=== PATIENT | male | born 1935 | race Caucasian/White ===

== ENCOUNTER 2016-02-25 08:20 | Outpatient (CLI) | payer MEDICARE, BC ==
[~2016-02-25] VITALS: Ht 175.3 cm; Wt 71.8 kg
--- NOTE | ~2016-02-25 | HEMODYNAMI ---
PATIENT:LUIS BELLO MEDICAL RECORD: [id number] : 37 LOCATION:D.CAT ADMISSION DATE: 02/25/16 Generatedon:02/25/201610:56 Patient name: LUIS BELLO Patient #: [id number] SSN: : 1935 Date of study: 02/25/2016 Page: Of Hemodynamic Procedure Report Patient Data Patient Demographics Procedure consent was obtained First Name: LUIS Gender: Male Last Name: ACE : 1935 [facility] Initial: JAE Age: 80 year(s) Patient #: [id number] Race: Additional ID: [id number] Contact details [address]: [address] [place] [address] State: [place] City: [place] Zip code: [address] Past Medical History Allergies Allergen Reaction Date Comments Reported Other allergy 02/21/2016 wasp venom Bee/Wasp stings 02/25/2016 Admission Admission Data Admission Date: 02/25/2016 Admission Time: 8:20 Height (in.): 69 BSA: 1.87 (m2) Height (cm.): 175.26 BMI: 23.33 (kg/m2) Weight (lbs.): 158 Weight (kg.): 71.67 Lab Results Lab Result Date: 02/25/2016 Lab Result Time: 0:00 Biochemistry Name Units Result Min Max BUN mg/dl 15 --(--*-)-- 7 18 Creatinine mg/dl 1.4 --(----)*- 0.6 1.3 CBC Name Units Result Min Max Hemoglobin g/dl 15.7 --(--*-)-- 13.5 17.5 Procedure Procedure Types Cath Procedure PCI Procedure Coronary Stent Initial Procedure Description Procedure Date Procedure Date: 02/25/2016 Procedure Start Time: 10:46 Procedure End Time: 10:55 Procedure Staff Name Function Reji Ratliff MD Performing Physician Radha Arnold RT Scrub Marcy Chamorro RN Nurse Aime Dejesus RT Application Tester Garry Suit RT Monitor Procedure Data Cath Procedure Fluoroscopy Diagnostic fluoroscopy Total fluoroscopy Time: 1.6 time: 1.6 min min Diagnostic fluoroscopy Total fluoroscopy dose: 205 dose: 205 mGy mGy Contrast Material Contrast Material Type Amount (ml) Isovue 300 37 Entry Location Entry Primary Successful Side Size Upsize Upsize Entry Closure Aguayo ccessful Closure Location (Fr) 1 (Fr) 2 (Fr) Remarks Device Remarks Radial Right 6 Fr Mechanical artery Short Compression Procedure Complications No complications Procedure Medications Medication Administration Route Dosage Oxygen NC 2 l/min Heparin Flush Bag added to field 2 bags (1000units/500ml NS) Lidocaine 2% added to field 20 Radial Cocktail added to field 1 syringe (Verapomil 2mg/Nitro 400mcg/Heparin 1500units) Benadryl I.V. 50 mg Versed I.V. 1 mg Fentanyl I.V. 50 mcg Versed I.V. 1 mg Fentanyl I.V. 50 mcg Heparin Bolus I.V. 4000 units Radial Cocktail I.A. 1 syringe (Verapomil 2mg/Nitro 400mcg/Heparin 1500units) Hemodynamics Rest BSA: 1.87 (m2) HGB: 15.7 (g/dl) O2 Consumption: Estimated: 223.29 (ml/min) O2 Co nsumption indexed: Estimated:119.41 (ml/min/m) Heart Rate: 83 (bpm) Snapshots Pre Cath Intra NCS Post Cath Vital Signs Time Heart Resp SPO2 NIBP (mmHg) Rhythm Pain Sedation Rate (ipm) (%) Status Level (bpm) 10:30:42 87 22 93 159/91(121) NSR 0 (11) 10(A) , No pain 10:34:56 83 16 95 151/96(133) NSR 0 (11) 10(A) , No pain 10:39:10 84 15 99 140/84(114) NSR 0 (11) 10(A) , No pain 10:43:24 83 16 96 113/71(93) NSR 0 (11) 9(A) , No pain 10:47:28 78 16 98 106/70(82) NSR 0 (11) 9(A) , No pain 10:51:34 91 16 97 86/57(78) NSR 0 (11) 9(A) , No pain 10:53:53 89 16 95 90/47(62) NSR 0 (11) 9(A) , No pain Medications Time Medication Route Dose Verified Delivered Reason Note s Effectiveness by by 10:29:50 Oxygen NC 2 l/min Reji Marcy Per physician Evy Chamorro RN 10:30:02 Heparin Flush added 2 bags Reji Mendoza used for Bag to Evy Ratliff MD procedure (1000units/500ml field NS) 10:30:09 Lidocaine 2% added 20ml Reji Mendoza used for to vial Evy Ratliff MD procedure field 10:31:17 Radial Cocktail added 1 Reji Mendoza used for (Verapomil to syringe Evy Ratliff MD procedure 2mg/Nitro field 400mcg/Heparin 1500units) 10:31:25 Benadryl I.V. 50 mg Reji Marcy Per physician Evy Chamorro RN 10:39:19 Versed I.V. 1 mg Reji Marcy for sedation Evy Chamorro RN 10:39:24 Fentanyl I.V. 50 mcg Reji Marcy for sedation Evy Chamorro RN 10:42:29 Versed I.V. 1 mg Reji Marcy for sedation Evy Chamorro RN 10:42:36 Fentanyl I.V. 50 mcg Reji Marcy for sedation Evy Chamorro RN 10:47:31 Radial Cocktail I.A. 1 Reji Mendoza for (Verapomil syringe Evy Ratliff MD vasodilation 2mg/Nitro 400mcg/Heparin 1500units) 10:48:03 Heparin Bolus I.V. 4000 Reji Marcy for dose units Evy Chamorro RN anticoagulation verified with dr ratliff Procedure Log Time Note 10:17:50 Aime Dejesus RT(R) sent for patient. Start room use. 10:17:51 Time tracking: Regular hours 10:17:56 Plan of Care:Hemodynamics will remain stable., Cardiac rhythm will remain stable., Comfort level will be maintained., Respiratory function will remain adequate., Patient/ family verbilizes understanding of procedure., Procedure tolerated without complication., Recovers from procedure without complications.. 10:23:39 ACC Patient presents with Stable Angina CCS Anginal Class 2--Slight limitation of ordinary activity. 10:24:36 ACC The patient was administered the following blood thiners within the last 24 hours: ACCPlavix 10:24:46 H&P Date Dictated: 02/25/2016 New H&P dictated by physician.. 10:25:18 Patient received from Outpatients to CCL 1 Alert and oriented. Tansferred to table in Supine position. 10:25:19 Warm blankets applied, and good hugger turned on for patient comfort. 10:25:20 Correct patient and procedure confirmed by team. 10:25:21 Signed procedure consent form obtained from patient. 10:25:22 ECG and BP/O2 sat monitors applied to patient. 10:25:23 Full Disclosure recording started 10:29:41 Vital chart was started 10:29:50 Oxygen 2 l/min NC was given by Marcy Chamorro RN; Per physician; 10:30:02 Heparin Flush Bag (1000units/500ml NS) 2 bags added to field was given by Reji Ratliff MD; used for procedure; 10:30:09 Lidocaine 2% 20ml vial added to field was given by Reji Ratliff MD; used for procedure; 10:31:17 Radial Cocktail (Verapomil 2mg/Nitro 400mcg/Heparin 1500units) 1 syringe added to field was given by Reji Ratliff MD; used for procedure; 10:31:25 Benadryl 50 mg I.V. was given by Marcy Chamorro RN; Per physician; 10:36:19 Baseline sample Acquired. 10:36:24 Rhythm: sinus rhythm 10:36:28 Pre-procedure instructions explained to patient. 10:36:28 Pre-op teaching completed and patient verbalized understanding. 10:36:31 Family in waiting room. 10:36:39 Patient NPO since Midnight. 10:36:49 Patient allergic to Bee/Wasp stings 10:36:51 Is the patient allergic to Iodine/contrast media? No. 10:36:56 Is patient on blood thinner?Yes 10:37:02 Patient diabetic? No. 10:37:04 ----Pre-sedation anethsthesia assessment.---- 10:37:07 Previous problem with sedation/anesthesia? No ? 10:37:09 Snore? No 10:37:18 Sleep apnea? No 10:37:20 Deviated septum? No 10:37:22 Opens mouth fully? Yes 10:37:23 Sticks out tongue? Yes 10:37:43 Airway obstruction? No ? 10:37:45 Dentures? No ? 10:37:50 Pre procedure: left dorsailis pedis pulse 1+ Palpable, but thready & weak; easily obliterated 10:37:55 Modified Arcadio's test Ulnar < 7 seconds 10:38:00 Patient pain scale 0/10 ?. 10:38:19 IV patent on arrival in left hand with 0.9% NaCl at 10ml/hr. 10:38:43 Lab Result : BUN 15 mg/dl 10:38:43 Lab Result : Creatinine 1.4 mg/dl 10:38:43 Lab Result : Hemoglobin 15.7 g/dl 10:38:47 Lab results completed and on chart. 10:38:54 Right Radial & Left Groin area was prepped with chlora-prep and draped in sterile fashion 10:38:55 Alarms reviewed by R. N. 10:38:57 Sharps counted by scrub and verified by R.N. 10:38:59 --------ALL STOP TIME OUT------ 10:39:00 Final Timeout: patient, procedure, and site verified with staff and physician. All members of the team are in agreement. 10:39:05 Right Radial & Left Groin site verified by team. 10:39:10 Physical assessment completed. ASA score P 2 - A patient with mild systemic disease as per Reji Ratliff MD. 10:39:14 Sedation plan: IV Moderate Sedation Versed, Fentanyl 10:39:19 Versed 1 mg I.V. was given by Marcy Chamorro RN; for sedation; 10:39:24 Fentanyl 50 mcg I.V. was given by Marcy Chamorro RN; for sedation; 10:40:26 Use device set Radial PCI 10:40:27 Acist Syringe opened to sterile field. 10:40:28 Acist Hand Control opened to sterile field. 10:40:30 Bag Decanter opened to sterile field. 10:40:30 Cardinal Cath Pack opened to sterile field. 10:40:31 Merit BasixCompak Inflation Kit opened to sterile field. 10:40:32 Terumo 6Fr Slender Glidesheath opened to sterile field. 10:40:32 St Devin 260cm Straight .035 wire opened to sterile field. 10:40:33 Acist Manifold opened to sterile field. 10:40:34 Tegaderm 4 x 4 opened to sterile field. 10:40:42 Gautam Whisper J 300cm 0.014 guide wire opened to sterile field. 10:40:53 Cordis 6FR XBLAD 4.0 guide catheter opened to sterile field. 10:42:29 Versed 1 mg I.V. was given by Marcy Chamorro RN; for sedation; 10:42:36 Fentanyl 50 mcg I.V. was given by Marcy Chamorro RN; for sedation; 10:44:07 Zero performed for pressure channel P1 10:44:12 Zero performed for pressure channel P1 10:44:14 Zero performed for pressure channel P1 10:44:16 Zero performed for pressure channel P1 10:46:28 Patient Height : 175.26 cm 10:46:31 Patient Weight : 71.67 kg 10:46:40 Procedure started. 10:46:53 Local anesthetic to right radial artery with Lidocaine 2% by Reji Ratliff MD.INITIAL ACCESS ONLY 10:46:59 A 6 Fr Short sheath was inserted into the Right Radial artery 10:47:31 Radial Cocktail (Verapomil 2mg/Nitro 400mcg/Heparin 1500units) 1 syringe I.A. was given by Reji Ratliff MD; for vasodilation; 10:48:03 Heparin Bolus 4000 units I.V. was given by Marcy Chamorro RN; for anticoagulation; dose verified with dr ratliff 10:50:59 ACC PCI Site: [facility] has 80% stenosis. 10:51:02 ACC Pre-intervention GABRIEL Flow is 3. 10:51:07 6 Fr XBLAD 4 guide catheter was inserted over the wire 10:51:11 WHISPER wire advanced. 10:51:23 Inflation Number: 1 A Medtronic Integrity 3.5 X 22 stent was prepped and advanced across the Mid CX. The stent was deployed at 13 SHEEBA for 0:10 (min:sec). 10:51:27 Stent catheter was removed intact over wire. 10:51:28 Wire removed. 10:51:28 Guide catheter removed. 10:51:39 Contrast amount:Isovue 300 37ml. 10:51:53 Sheath removed intact; hemostasis achieved with Mechanical Compression to the Right Radial artery. 10:51:55 Procedure ended.(Physican Out) 10:52:04 Fluoroscopy time 01.60 minutes. 10:52:08 Flurop Dose total: 205 10:52:08 Fluoroscopy dose: 205 mGy 10:52:10 Sharps counted by scrub and verified by R.N. 10:52:12 TR band inflated with 10cc of air. 10:52:14 Insertion/operative site no bleeding no hematoma. 10:52:20 Post right radial artery:stable 10:52:21 Post Procedure Pulses reassessed and unchanged 10:52:24 Post procedure rhythm: sinus rhythm 10:52:25 Post procedure instruction explained to patient.Patient verbalizes understanding. 10:52:43 Terumo TR Band Standard opened to sterile field. 10:52:57 Procedure and supply charges have been captured, reviewed, submitted and are correct. 10:53:01 Procedure Complication : No complications 10:54:50 Vital chart was stopped 10:54:50 See physician's report for complete and final results. 10:54:55 Report given to Post Procedure Room. 10:54:59 Patient transfered to Post Procedure Room with Stretcher. 10:55:02 Procedure ended. 10:55:02 Full Disclosure recording stopped 10:55:06 End room use (Document Last) Intervention Summary Intervention Notes Time ActionType Lesion and Equipment Action# Pressure Duration Attributes Used 10:51:23 Place stent Mid CX Medtronic 1 13 00:10 Integrity 3.5 X 22 stent Device Usage Item Name Manufacture Quantity Catalog Hospital Part Current Minimal Lot# / Number Charge Number Stock Stock Serial# Code Acist Acist 1 30233 [id number] 443272 414111 20 Syringe Medical Systems Inc Acist Hand Acist 1 37063 000569 476279 363101 5 Control Medical Systems Inc Bag Microtek 1 2001S 324448 72254 922831 5 [email or web address] Inc. Cardinal Cardinal [address] [address]58[address] 38581 935456 5 MedCity News [facility] 1 [id number] 668651 133361 076791 15 Digital Shadows Medical Inflation Kit Terumo 6Fr Terumo 1 [id number] 821078 761260 837363 [address] [facility] 1 550814 044024 115234 256751 1 260cm Straight .035 wire Acist Acist 1 16865 519329 469029 958112 5 Vivaty Systems Inc Tegaderm 4 3M 1 1626W 064119 848397 343103 5 x 4 Gautam Gautam 1 [id number] 972762 655765 891982 5 Whisper J Vascular 300cm 0.014 guide wire Cordis 6FR Cardinal 1 [id number] 213604 890630 558185 3 XBLAD 4.0 Health guide catheter Medtronic Medtronic 1 [id number] 824074 664705 4 [id number] Integrity 3.5 X 22 stent Terumo TR Terumo 1 [id number] 060280 144763 790950 40 Band Standard Signature Audit [place] Stage Time Signature Unsigned Intra-Procedure 02/25/2016 Garry French 10:56:02 AM RT(R) Signatures Monitor : Garry French RT Signature : Date : Time : [facility] [address] [place] [address]
[~2016-02-25 08:20] MED LIST: BAYER CHEWABLE81 MG PO; BYSTOLIC5 MG PO; CRESTOR5 MG PO; ELAVIL25 MG PO; HYZAAR 50-12.51 TAB PO; PLAVIX75 MG; PLAVIX75 MG PO; PROPAFENONE HC150 MG PO; VITAMIN D31000 UNIT PO; ZOLOFT50 MG PO
[2016-02-25 09:00] LABS: BASOPHILS 0.4 % (0.0-2.0); EOSINOPHILS 7.1 % (0-7); HEMATOCRIT 45.9 % (42.0-54.0); HEMOGLOBIN 15.7 g/dL (13.5-17.5); IMMATURE GRANULOCYTES 0.2 % (0-5); LYMPHOCYTES 30.7 % (15-50); MCH 31.5 pg (26.0-34.0); MCHC 34.2 g/dL (31.0-37.0); MCV 92.2 fL (80.0-100.0); MEAN PLATELET VOLUME 9.8 fL (7.4-10.4); MONOCYTES 6.3 % (2-11); NEUTROPHILS 55.3 % (40-80); PLATELET COUNT 266 10x3/uL (130-400); RBC 4.98 10x6/uL (4.20-6.10); RDW 13.3 % (11.5-14.5); WBC 11.4 10x3/uL (4.8-10.8)
[2016-02-25 09:10] LABS: ANION GAP 11.2 mmol/L (8-16); CALCIUM 9.9 mg/dL (8.5-10.1); CARBON DIOXIDE 29.5 mmol/L (21.0-32.0); CREATININE - SERUM 1.4 mg/dL (0.6-1.3); POTASSIUM - SERUM 3.7 mmol/L (3.5-5.1)
[2016-02-25 09:19] VITALS: Ht 175.3 cm; Wt 71.8 kg
--- NOTE | 2016-02-25 11:39 | NUR ---
1115 LYING FLAT, SLEEPING. NC 2L IN PLACE WHILE SLEEPING, NO RESP DISTRESS. NSR W FREQUENT PVC'S. ALL VITALS WNL. R WRIST TR BAND C/D/I WITH NO HEMATOMA OR BLEEDING. AT BEDSIDE. NO C/O CHEST PAIN AT THIS TIME. WILL CONTINUE TO MONITOR CLOSELY.
--- NOTE | 2016-02-25 13:32 | NUR ---
1145 CONTINUES TO SLEEP BUT AWAKENS TO VERBAL STIMULI. ALL VITALS WNL. R WRIST TR BAND C/D/I WITH NO HEMATOMA OR BLEEDING. AT BEDSIDE. 1245 TALKING WITH . HOB ELEAVTED TO 45DEGREES. VITALS ALL WNL. R WRIST TR BAND C/D/I WITH NO HEMATOMA OR BLEEDING. 1330 SITTING UP EATING TURKEY SANDWICH WITH ASSIST FROM . NSR W PVC'S RATE 76. R WRIST REMAINS C/D/I WITH NO HEMATOMA OR BLEEDING.
--- NOTE | 2016-02-25 14:52 | NUR ---
PIV REMOVED FROM LEFT HAND WITH BANDAID APPLIED. UP TO BEDSIDE TO DRESS WITH ASSIST FROM .
--- NOTE | 2016-02-25 14:58 | NUR ---
D/C INSTRUCTIONS DISCUSSED WITH PATIENT AND SPOUSE. BOTH VERBALIZED UNDERSTANDING. TR BAND REMOVED AND TEGADERM APPLIED. WHEELED DOWN VIA WHEELCHAIR BY CATH TEAM.
--- NOTE | 2016-02-27 16:23 | OP ---
PATIENT NAME: LUIS BELLO MEDICAL RECORD: [id number] :37 LOCATION:D.CAT ADMISSION DATE: SURGEON: GA LOREDO MD DATE OF OPERATION: 02/25/2016 PROCEDURES: 1. PTCA, stent left circumflex. 2. Selective coronary angiography. PROCEDURE IN DETAIL: After informed consent was obtained and after detailed explanation of risks, benefits, as well as alternative therapies, the patient elected to proceed with angiogram and angioplasty. The right radial area was prepped and draped in normal sterile fashion. The right radial artery was cannulated via modified Seldinger technique with placement of 6-Citizen Of [place] sheath. All catheters exchanged through this sheath. FINDINGS: The left circumflex has 80% stenosis in the mid vessel. This was addressed with a 3.5 x 22 mm Integrity. Result was 0% residual stenosis. OVERALL IMPRESSION: Successful percutaneous transluminal coronary angioplasty stent of the left circumflex going from 80% initial stenosis to 0% residual. TRANSINT:[id number] Voice Confirmation ID: [id number] DOCUMENT ID: [id number] GA LOREDO MD at 1623 CC: [id number] DICTATION DATE: 02/25/16 1054 IMAGING CENTER MANAGER: 02/25/16 1102 DEP CLI 02/25/16 [id number] [place] [address]
--- NOTE | 2016-02-27 16:23 | HP ---
PATIENT: LUIS BELLO MEDICAL RECORD: [id number] ACCOUNT: [id number] LOCATION:[place] : 37 ADMISSION DATE: 02/25/16 HISTORY AND PHYSICAL EXAMINATION ADMITTING DIAGNOSES: 1. Angina. 2. Coronary artery disease. 3. Recent percutaneous transluminal coronary angioplasty stent of the right coronary artery with concomitant disease of the left circumflex. 4. Hypertension. 5. Chronic obstructive pulmonary disease. 6. Smoking history. 7. Hyperlipidemia. 8. Paroxysmal atrial fibrillation. HISTORY OF PRESENT ILLNESS: Mr. Bello presents with anginal symptomatology, found to have 2-vessel coronary artery disease, underwent successful PTCA stent of the RCA. He is now brought back for PTCA stent of the left circumflex. PHYSICAL EXAMINATION: GENERAL APPEARANCE: Well-nourished, well-developed, appears stated age. Level of distress, comfortable. PSYCHIATRIC: Mental status, alert, normal affect. Orientation, oriented to time, place and person. EYES: Lids and conjunctiva, noninjected. No discharge, no pallor. ENT: Lips, teeth, gums, normal dentition. Oropharynx, no cyanosis, no pallor. NECK: Carotid arteries, bilateral normal upstroke, no bruits, no thrills. JUGULAR VEINS: No jugular venous pressure or distention. CERVICAL LYMPH NODES: Nontender, nonenlarged. THYROID: Not enlarged. Nontender. No nodules. LUNGS: Respiratory effort, unlabored. CHEST: Normal curvature. No thoracic deformity. No chest wall tenderness. Percussion, resonant. Auscultation, clear. No wheezes, no rales, no rhonchi. CARDIOVASCULAR: Precordial exam, nondisplaced. No heaves or pericardial thrills. ____. Heart sounds, normal S1, normal S2. No S3, no gallop, no rub. Systolic murmur, not heard. Diastolic murmur, not heard. EXTREMITIES: No cyanosis, no edema. Peripheral pulses, full and equal in all extremities, except as noted. No bruits appreciated. ABDOMEN: Soft, nondistended. Normal aorta. No bruit. Nontender. No masses. Liver, nontender, no hepatomegaly. Spleen, nontender, no splenomegaly. MUSCULOSKELETAL: No joint tenderness. No joint swelling. No erythema. NEUROLOGICAL: Normal gait, normal strength, normal tone. SKIN: Warm and dry. REVIEW OF SYSTEMS: The patient reports easy bruising but reports no swollen glands. The patient reports no fever, no night sweats, no significant weight gain, no significant weight loss. No significant exercise tolerance. The patient reports no dry eyes, no irritation, no vision change. Patient reports no difficulty hearing and no ear pain. Patient reports no frequent nose bleeds or nose and sinus problems. Patient reports on arm pain on exertion. No shortness of breath while lying down. No history of heart murmur. Patient reports no cough, no wheezing or coughing up blood. Patient reports no abdominal pain, no vomiting. Normal appetite. No diarrhea and not vomiting blood. No nausea and no constipation. Patient reports no incontinence. No HISTORY AND PHYSICAL [id number] LUIS BELLO difficulty urinating. No hematuria. No increased frequency. Patient reports no muscle aches. No weakness, no arthralgias, no back pain. No swelling of the extremities. Patient reports no abnormal mole, no jaundice, no rashes. Reports no loss of consciousness. No weakness and no numbness. No seizures, dizziness, or headaches. The patient reports no depression, no sleep disturbance, feeling safe in a relationship and no alcohol abuse. Patient reports on fatigue. Reports no runny nose or sinus pressure. No itching, no hives, and no frequent sneezing. OVERALL IMPRESSION: Anginal symptomatology with significant disease of the circumflex. We will proceed with percutaneous transluminal coronary angioplasty stent of circumflex in a staged fashion. TRANSINT:[id number] Voice Confirmation ID: [id number] DOCUMENT ID: [id number] GA LOREDO MD at 1623 CC: [id number] DICTATION DATE: 02/25/16 0856 DOCTOR OF DENTAL MEDICINE: 02/25/16 0907 DEP CLI 02/25/16 [facility] [address] [place] [address]
== END 2016-02-25 15:00 | disposition home or self-care (01) ==
LOC: D.CATH 08:20
PROVIDERS: Internal Medicine Interventional Cardiology
DX: I25.119 Atherosclerotic heart disease of native coronary artery with unspecified angina pectoris (principal); Z95.5 Presence of coronary angioplasty implant and graft; I10 Essential (primary) hypertension; J44.9 Chronic obstructive pulmonary disease, unspecified; F17.200 Nicotine dependence, unspecified, uncomplicated; E78.5 Hyperlipidemia, unspecified; I48.0 Paroxysmal atrial fibrillation

== ENCOUNTER 2016-03-23 16:54 | Inpatient (IN) | payer MEDICARE, BC ==
[~2016-03-23] VITALS: Ht 175.3 cm
[2016-03-23 17:29] LABS: APPEARANCE CLEAR (CLEAR); BILIRUBIN NEGATIVE (NEGATIVE); COLOR YELLOW (YELLOW); GLUCOSE NEGATIVE (NEGATIVE); KETONE NEGATIVE (NEGATIVE); LEUKOCYTE ESTERASE NEGATIVE (NEGATIVE); NITRITE NEGATIVE (NEGATIVE); PROTEIN NEGATIVE (NEGATIVE); UROBILINOGEN NORMAL (NORMAL)
[2016-03-23 17:41] LABS: BASOPHILS 0.1 % (0.0-2.0); EOSINOPHILS 0.1 % (0-7); HEMATOCRIT 40.8 % (42.0-54.0); HEMOGLOBIN 13.9 g/dL (13.5-17.5); IMMATURE GRANULOCYTES 0.4 % (0-5); LYMPHOCYTES 18.4 % (15-50); MCH 31.2 pg (26.0-34.0); MCHC 34.1 g/dL (31.0-37.0); MCV 91.5 fL (80.0-100.0); MONOCYTES 3.5 % (2-11); NEUTROPHILS 77.5 % (40-80); PLATELET COUNT 248 10x3/uL (130-400); RBC 4.46 10x6/uL (4.20-6.10); RDW 12.7 % (11.5-14.5)
[2016-03-23 18:15] LABS: ALBUMIN 3.9 g/dL (3.4-5.0); ANION GAP 13.5 mmol/L (8-16); BILIRUBIN - TOTAL 0.39 mg/dL (0.2-1.3); CALCIUM 9.3 mg/dL (8.5-10.1); CARBON DIOXIDE 29.2 mmol/L (21.0-32.0); CREATININE - SERUM 1.2 mg/dL (0.6-1.3); POTASSIUM - SERUM 3.7 mmol/L (3.5-5.1); PROTEIN - SERUM 6.9 g/dL (6.4-8.2)
[2016-03-24 02:48] VITALS: BP 153/79
--- NOTE | 2016-03-24 06:55 | NUR ---
PATIENT STABLE THROUGH THE NIGHT. PO PAIN MEDICATION FOR MAINTAINING COMFORT. 20G PIV REMOVED FROM RIGHT HAND WITH CATH INTACT AFTER LEAKAGE NOTED. 22G PIV INITIATED IN LEFT HAND. CPM STARTED AT 5am. SHE IS A MODERATE FALLS RISK WITH NO ATTEMPTS TO GET OOB. A&Ox3, vss, afebrile, tolerating CPM. BED IN LOWEST LOCKED POSITION, CALL LIGHT WITHIN REACH, HOB ELEVATED, ICE APPLIED TO RIGHT KNEE.
--- NOTE | 2016-03-24 07:00 | NUR ---
PATIENT RECIEVED FROM ER, STABLE WITH NO ACUTE DISTRESS. WAS NOT ABLE TO AMBULATE FROM DOORWAY TO THE BED. UNSTABLE GAIT AND WEAKNESS, PATIENT REPORTED THAT HE FEELS LIKE HE IS DRUNK WHEN HE AMBULATES. HE IS A&Ox3, NO COMPLAINTS OF PAIN OR NAUSEA.
--- NOTE | 2016-03-24 08:30 | NUR ---
LYING IN BED,WITHOUT DISTRESS.CALL LIGHT IN REACH
[2016-03-24 08:39] VITALS: BP 141/71
[2016-03-24 10:49] LABS: BASOPHILS 0.2 % (0.0-2.0); EOSINOPHILS 1.5 % (0-7); HEMATOCRIT 40.7 % (42.0-54.0); HEMOGLOBIN 13.7 g/dL (13.5-17.5); IMMATURE GRANULOCYTES 0.3 % (0-5); LYMPHOCYTES 29.5 % (15-50); MCH 30.6 pg (26.0-34.0); MCHC 33.7 g/dL (31.0-37.0); MCV 90.8 fL (80.0-100.0); MEAN PLATELET VOLUME 9.9 fL (7.4-10.4); MONOCYTES 7.4 % (2-11); NEUTROPHILS 61.1 % (40-80); PLATELET COUNT 224 10x3/uL (130-400); RBC 4.48 10x6/uL (4.20-6.10); RDW 12.9 % (11.5-14.5)
[2016-03-24 11:00] LABS: ALBUMIN 3.5 g/dL (3.4-5.0); ALKALINE PHOSPHATASE 68 U/L (46-116); ALT (SGPT) 29 U/L (10-68); CALC OSMOLALITY 269 mosm/kg (275-300); CALCIUM 8.9 mg/dL (8.5-10.1); CARBON DIOXIDE 29.7 mmol/L (21.0-32.0); CHLORIDE - SERUM 97 mmol/L (98-107); CHOL - HDL RATIO 2.3 ratio (2.3-4.9); CHOLESTEROL, TOTAL 148 mg/dL (0-200); CKMB 4.1 U/L (0.0-3.6); CREATINE KINASE 165 UL (21-232); CREATININE - SERUM 1.2 mg/dL (0.6-1.3); GLUCOSE 113 mg/dL (74-106); HDL CHOLESTEROL 65 mg/dL (32-96); LDL CHOLESTEROL 63 mg/dL (0-100); POTASSIUM - SERUM 3.6 mmol/L (3.5-5.1); PROTEIN - SERUM 6.5 g/dL (6.4-8.2); SODIUM 134 mmol/L (136-145); TRIGLYCERIDE 103 mg/dL (30-200); TROPONIN-I < 0.017 ng/mL (0.000-0.060); UREA NITROGEN 14 mg/dL (7-18); eGFR NON AFRICAN AMERICAN 62 mL/min (90-120)
[2016-03-24 11:08] LABS: WBC 9.3 10x3/uL (4.8-10.8)
[2016-03-24 12:26] VITALS: BP 155/76
--- NOTE | 2016-03-24 12:34 | NUR ---
AWAKE AND ALERT. ORIENTED X3. NO C/O AT THIS TIME. FAMILY AT BEDSIDE. ASSISTED TO SIT UP IN BED TO EAT. DENIES NEEDS.
[2016-03-24 12:58] VITALS: Ht 175.3 cm
--- NOTE | 2016-03-24 14:23 | NUR ---
Patient Name: LUIS BELLO Admission Status: ER Accout number: [id number] Admission Date: 03-23-2016 : 1935 Admission Diagnosis: Attending: CHRISTAL Current LOS: 1 Anticipated DC Date: 03-27-2016 Planned Disposition: Home Primary Insurance: MEDICARE A & B Discharge Planning Comments: CM MET WITH PATIENT REGARDING DISCHARGE NEEDS AND PLANS. PATIENT STATED HE LIVES WITH HIS SPOUSE ( JEN) AND SHE OR THEIR SON (DAR) WILL DRIVE PATIENT HOME AT DISCHARGE. PATIENT STATED HE IS INDEPENDENT WITH HIS CARE AND HAS NO DME AT HOME. PATIENT STATED HE HAS 2 STEPS (SEVERAL IN HOME- MULTI LEVEL) WITHOUT RAILS. PATIENTS PCP IS DR. GREY AND PATIENT USES [facility]. PATIENT STATED HE DOES NOT WANT HOME HEALTH UNLESS DOCTOR THINKS HE NEEDS IT. CM WILL CONTINUE TO FOLLOW PATIENT WITH D/C NEEDS AND PLANS. PCP DR. GREY [facility]- [phone] JEN () [phone] DAR (SON) [phone] Morning Nanny: Jackie Archuleta Is the patient Alert and Oriented? Yes 0 * How many steps to enter\exit or inside your home? 2 W/RAILS 0 * PCP DR. GREY 0 * Pharmacy [facility] 0 * Preadmission Environment Home with Family 0 * ADLs Independent 0 * Equipment None 0 * List name and contact numbers for known caregivers / representatives who currently or will assist patient after discharge: JEN (SPOUSE) [phone] DAR (SON) [phone] 0 * Community resources currently utilized None 0 * Additional services required to return to the preadmission environment? Yes 0 * Can the patient safely return to the preadmission environment? Yes 0 * Has this patient been hospitalized within the prior 30 days at any hospital? No 0 Grand Total: 0
[2016-03-24 16:13] LABS: CKMB 3.5 U/L (0.0-3.6); CREATINE KINASE 165 UL (21-232); TROPONIN-I 0.021 ng/mL (0.000-0.060)
[2016-03-24 16:58] VITALS: BP 154/79
--- NOTE | 2016-03-24 18:30 | NUR ---
PT HAS RESTED TODAY AWAKE AND ALERT ORINETED X 3 LUNGS CLEAR BILATERAL FAMILY AT SIDE TO HAVE MRI BRAIN IN AM WILL MNITOR HAS BEEN STABLE THIS DAY AMBULATED IN ROOM WITH THERAPY WITH MINIMAL DIZZINESS NOTED
[2016-03-24 19:00] VITALS: BP 159/82
--- NOTE | 2016-03-24 19:45 | NUR ---
RECIEVED SHIFT REPORT. PT IS LYING IN BED. ALERT AND ORIENTED AND ABLE TO VERBALIZE NEEDS. IV IS PATENT AND SALINE LOC AT THIS TIME. PT HAS BEEN AMBULATING WITH PHYSICAL THERAPY BUT IS ABLE TO TURN SELF IN BED FOR COMFORT AND SKIN CARE. PT DENIES ANY PAIN AT THIS TIME. NO NEEDS ARE VERBALIZED AT THIS TIME. IS AT BEDSIDE. WILL CONTINUE TO MONITOR. SIDE RAILS ARE UP X 2. BED IS IN LOWEST POSITION. CALL LIGHT IS WITHIN REACH.
[2016-03-24 21:33] LABS: CKMB 2.2 U/L (0.0-3.6); CREATINE KINASE 162 UL (21-232); TROPONIN-I 0.024 ng/mL (0.000-0.060)
--- NOTE | 2016-03-24 22:18 | NUR ---
SHIFT ASSESSMENT COMPLETED. NIGHT MEDS GIVEN WITH NO PROBLEMS. NO NEEDS ARE VOICED. WILL MONITOR. AT BEDSIDE. SIDE RAILS X 2. BED LOW. CALL LIGHT IN REACH.
[2016-03-25 04:00] VITALS: BP 120/75
[2016-03-25 05:24] LABS: BASOPHILS 0.2 % (0.0-2.0); EOSINOPHILS 4.3 % (0-7); HEMATOCRIT 40.6 % (42.0-54.0); HEMOGLOBIN 13.6 g/dL (13.5-17.5); IMMATURE GRANULOCYTES 0.3 % (0-5); LYMPHOCYTES 39.8 % (15-50); MCH 30.6 pg (26.0-34.0); MCHC 33.5 g/dL (31.0-37.0); MCV 91.2 fL (80.0-100.0); MEAN PLATELET VOLUME 9.5 fL (7.4-10.4); MONOCYTES 9.6 % (2-11); NEUTROPHILS 45.8 % (40-80); PLATELET COUNT 218 10x3/uL (130-400); RBC 4.45 10x6/uL (4.20-6.10); RDW 12.9 % (11.5-14.5); WBC 10.1 10x3/uL (4.8-10.8)
[2016-03-25 05:49] LABS: ALBUMIN 3.4 g/dL (3.4-5.0); ANION GAP 10.4 mmol/L (8-16); BILIRUBIN - TOTAL 0.34 mg/dL (0.2-1.3); CALCIUM 9.1 mg/dL (8.5-10.1); CREATININE - SERUM 1.2 mg/dL (0.6-1.3); POTASSIUM - SERUM 3.4 mmol/L (3.5-5.1); PROTEIN - SERUM 6.7 g/dL (6.4-8.2)
--- NOTE | 2016-03-25 07:15 | NUR ---
REPORT RECEIVED FROM PARCEL POST OFFICER NURSE. CALL LIGHT IN REACH.
[2016-03-25 07:57] VITALS: BP 148/93
--- NOTE | 2016-03-25 09:43 | NUR ---
ASSESSMENT COMPLETED. AM MEDS ADMINISTERED. NEURO CHECK WNL. SCDs APPLIED TO BLE. BOX ALARM PLACED ON PATIENT. FAMILY IN ROOM. CALL LIGHT IN REACH. WILL CONTINUE WITH PLAN OF CARE.
--- NOTE | 2016-03-25 10:30 | NUR ---
BATH GIVEN PER STATOR PLATE WASHER. TELEMETRY PLACED BACK ON.
[2016-03-25 11:57] VITALS: BP 129/79
--- NOTE | 2016-03-25 12:50 | NUR ---
NEURO CHECK WNL. NO NEEDS VOICED. AT BEDSIDE. CALL LIGHT IN REACH.
--- NOTE | 2016-03-25 14:05 | NUR ---
NO NEEDS VOICED AT THIS TIME. CALL LIGHT IN REACH.
[2016-03-25 16:23] VITALS: BP 145/82
--- NOTE | 2016-03-25 16:50 | NUR ---
TO CT VIA WC.
--- NOTE | 2016-03-25 16:50 | NUR ---
Rehab Note- Rehab Prescreen Order received. The patient will be a good IRF patient, have met and spoken with the patient and family and the patient is interested in [facility] IRF when ready for discharge from acute hospital. Spoke with EMPERATRIZ Mejia. Will follow the patient at this time- continuing to have work up due to feeling of "dizzy headed". Thank you for this referral! Hellen Hassan RN Clinical Liaison, [facility]hab [facility]
--- NOTE | 2016-03-25 17:07 | NUR ---
OT NOTE: PT COMPLETED BUE AROM IN ALL PLANES. PT COMPLETED BED MOB WITH SBA. THANK YOU, JOSE J MCCURDY/Tank
--- NOTE | 2016-03-25 17:10 | NUR ---
BACK IN ROOM.
--- NOTE | 2016-03-25 18:01 | NUR ---
NO CHANGES IN INITIAL ASSESSMENT. SCDs TO BLE. CALL LIGHT IN REACH. WILL CONTINUE WITH PLAN OF CARE.
--- NOTE | 2016-03-25 18:24 | NUR ---
pt seen for transportation program director. no complaints at present except when walking then states his head "swims". flagman are equal and strong bilat with no neuro deficits noted. scds on bilat and at bedside. call light in reach
--- NOTE | 2016-03-25 18:29 | NUR ---
ELAVIL GIVEN D/T PATIENT'S REQUEST.
--- NOTE | 2016-03-25 20:40 | NUR ---
AWAKE,ALERT. NO COMPLAINTS VOICED. SL TO LEFT ARM INTACT WITHOUT REDNESS OR EDEMA NOTED. SCDS IN TACT. NO COMPLAITNS VOICES. AT BEDSIDE.
[2016-03-25 21:00] VITALS: BP 138/77
--- NOTE | 2016-03-26 02:13 | NUR ---
EYES CLOSED RESP EVEN AND UNALBORED. CL IN REACH. REMAINS AT BEDSIDE.
[2016-03-26 04:00] VITALS: BP 135/84
--- NOTE | 2016-03-26 04:00 | NUR ---
PATIENT SLEEPING WITH NO DISTRESS NOTED. IV TO LEFT AC SL WITH NO REDNESS OR SWELLING. TELEMETRY ON. SCD'S ON. BOX ALARM ON. AT BEDSIDE. SRX2. BED LOW. CALL LIGHT WITHIN REACH.
[2016-03-26 05:00] LABS: BASOPHILS 0.3 % (0.0-2.0); EOSINOPHILS 5.1 % (0-7); HEMATOCRIT 42.5 % (42.0-54.0); HEMOGLOBIN 14.2 g/dL (13.5-17.5); IMMATURE GRANULOCYTES 0.4 % (0-5); MCHC 33.4 g/dL (31.0-37.0); MCV 92.8 fL (80.0-100.0); MEAN PLATELET VOLUME 9.9 fL (7.4-10.4); MONOCYTES 9.6 % (2-11); NEUTROPHILS 41.6 % (40-80); PLATELET COUNT 228 10x3/uL (130-400); RBC 4.58 10x6/uL (4.20-6.10); RDW 12.9 % (11.5-14.5); WBC 10.5 10x3/uL (4.8-10.8)
[2016-03-26 05:36] LABS: ALBUMIN 3.4 g/dL (3.4-5.0); ANION GAP 10.4 mmol/L (8-16); BILIRUBIN - TOTAL 0.42 mg/dL (0.2-1.3); CALCIUM 9.4 mg/dL (8.5-10.1); CARBON DIOXIDE 32.1 mmol/L (21.0-32.0); CREATININE - SERUM 1.2 mg/dL (0.6-1.3); POTASSIUM - SERUM 4.5 mmol/L (3.5-5.1); PROTEIN - SERUM 6.5 g/dL (6.4-8.2)
--- NOTE | 2016-03-26 06:47 | NUR ---
NO CHANGE IN ASSESSMENT. CL IN REACH.
--- NOTE | 2016-03-26 07:00 | NUR ---
REPORT RECEIVED FROM BLEACHING SUPERVISOR NURSE. CALL LIGHT IN REACH.
--- NOTE | 2016-03-26 08:01 | NUR ---
ASSESSMENT COMPLETED. NEURO CHECK WNL. NO DEFICITS NOTED. SCDs TO BLE. IN ROOM. CALL LIGHT IN REACH. WILL CONTINUE WITH PLAN OF CARE.
[2016-03-26 08:08] VITALS: BP 125/68
--- NOTE | 2016-03-26 09:56 | NUR ---
AM MEDS ADMINISTERED. AT BEDSIDE. CALL LIGHT IN REACH.
--- NOTE | 2016-03-26 11:11 | NUR ---
NUTRITION MONITORING & EVAL SPEECH THERAPY NOTE REVIEWED. PT CURRENTLY ON AHA DIET WITH 100% INTAKE BREAKFAST. WILL CONTINUE TO PROVIDE DIET, MONITOR PO INTAKE. RD FOLLOWING
[2016-03-26 11:18] VITALS: BP 114/71
--- NOTE | 2016-03-26 11:50 | NUR ---
NO NEEDS VOICED AT THIS TIME. CALL LIGHT IN REACH.
--- NOTE | 2016-03-26 13:50 | NUR ---
WAITING ON CARDIOLOGY TO COME AND SEE PATIENT. DR. LOREDO'S OFFICE WAS NOTIFIED AGAIN PER DAVY.
--- NOTE | 2016-03-26 14:10 | NUR ---
DR. DUFFY HERE TO SEE PATIENT
[2016-03-26 15:15] VITALS: BP 134/55
--- NOTE | 2016-03-26 16:40 | NUR ---
REQUESTING THAT ELAVIL BE GIVEN DIRECTLY AFTER SUPPER BECAUSE THAT IS WHEN HE TAKES IT AT HOME. WILL TAKE IT TO PATIENT WITH DEBORAH.
--- NOTE | 2016-03-26 16:41 | NUR ---
OT NOTE: PT COMPLETED BUE STRENGTHENING EXERCISES FOR INCREASED ACTIVITY TOLERANCE. PT COMPLETED EOB DYNAMIC SITTING BALANCE WITH SBA. THANK YOU, JOSE J MCCURDY/Tank
--- NOTE | 2016-03-26 17:28 | NUR ---
DEBORAH AND ALEA PO. CALL LIGHT IN REACH.
--- NOTE | 2016-03-26 17:48 | NUR ---
PATIENT IN BED EATING DINNER. HOB 90 DEGREES. FAMILY MEMBER IN RECLINER. PATIENT DENIES NEEDS.
--- NOTE | 2016-03-26 18:51 | NUR ---
NO CHANGES IN INITIAL ASSESSMENT. SCDs TO BLE. HOLLY MAT ALARM ON. CALL LIGHT IN REACH. WILL CONTINUE WITH PLAN OF CARE.
[2016-03-26 20:00] VITALS: BP 143/73
[2016-03-27] VITALS: BP 123/78
[2016-03-27 04:00] VITALS: BP 140/54
--- NOTE | 2016-03-27 04:30 | NUR ---
PATIENT SLEEPING WITH NO DISTRESS NOTED. AGREE WITH IRONER OR PRESSER ASSESSMENT.
[2016-03-27 05:48] LABS: BASOPHILS 0.4 % (0.0-2.0); EOSINOPHILS 5.8 % (0-7); HEMATOCRIT 40.8 % (42.0-54.0); HEMOGLOBIN 13.6 g/dL (13.5-17.5); IMMATURE GRANULOCYTES 0.2 % (0-5); LYMPHOCYTES 42.8 % (15-50); MCH 30.8 pg (26.0-34.0); MCHC 33.3 g/dL (31.0-37.0); MCV 92.5 fL (80.0-100.0); MEAN PLATELET VOLUME 9.8 fL (7.4-10.4); MONOCYTES 9.2 % (2-11); NEUTROPHILS 41.6 % (40-80); PLATELET COUNT 217 10x3/uL (130-400); RBC 4.41 10x6/uL (4.20-6.10); RDW 12.8 % (11.5-14.5); WBC 9.8 10x3/uL (4.8-10.8)
[2016-03-27 06:08] LABS: ALBUMIN 3.4 g/dL (3.4-5.0); ANION GAP 10.5 mmol/L (8-16); BILIRUBIN - TOTAL 0.44 mg/dL (0.2-1.3); CARBON DIOXIDE 31.9 mmol/L (21.0-32.0); CREATININE - SERUM 1.2 mg/dL (0.6-1.3); POTASSIUM - SERUM 4.4 mmol/L (3.5-5.1); PROTEIN - SERUM 6.2 g/dL (6.4-8.2)
--- NOTE | 2016-03-27 07:00 | NUR ---
REPORT RECEIVED FROM PAVER INSTALLER NURSE. CALL LIGHT IN REACH.
[2016-03-27 07:55] VITALS: BP 162/74
--- NOTE | 2016-03-27 09:08 | NUR ---
AMBULATING WITH PHYSICAL THERAPY.
--- NOTE | 2016-03-27 09:20 | NUR ---
ASSESSMENT COMPLETED. SCDs TO BLE. HOLLY MAT ON. CALL LIGHT IN REACH. WILL CONTINUE WITH PLAN OF CARE.
--- NOTE | 2016-03-27 11:12 | EC ---
PATIENT:LUIS BELLO DATE OF SERVICE: 03/23/16 SEX: M MEDICAL RECORD: [id number] DATE OF : 37 LOCATION:D.MS [address] AGE OF PATIENT: 80 ADMISSION DATE: 03/23/16 REFERRING PHYSICIAN: INTERPRETING PHYSICIAN: GA RATLIFF MD ECHOCARDIOGRAM REPORT ECHO CHARGES 4 ECHO COMPLETE CLINICAL DIAGNOSIS: STROKE HX HTN/CAD/STENTS ECHOCARDIOGRAPHIC MEASUREMENTS (adult normal given) AC root (d.<3.7cm) 3.6 LV Septum d (<1.2 cm> 1.3 Valve Excursion 1.8 LV Septum (systole) 1.6 Left Atria (s.<4.0cm> 3.9 LVPW d(<1.2cm) 1.5 RV (d.<2.3cm) 4.4 LVPW (sytole) 1.8 LV diastole(<5.6CM) 5.1 MV E-F(>70mm/sec) LV systole 3.8 LVOT Diameter 1.7 MV exc.(>10mm) 1.7 Est.ejection fraction (50-75%) Pericardial Effusion N DOPPLER: LVIT A 143 E 78.0 LA RVSP 25 LVOT 102 AOP1/2T 384 Asc. Ao 245 RVOT 111 RA PA 121 AV Gradient Peak 23.98 AV Mean 14.64 AV Area 1.0 MV Gradient Peak 11.11 MV Mean 3.0 MV Area COMMENTS: Cement Worker: Neil MCGRAW Radio Tower Technician:Alvarado Ratliff TAPE# PACS DATE OF SERVICE: 03/24/2016 Echocardiogram FINDINGS: 1. Left ventricular chamber size is within normal limits. Left ventricular systolic function is normal. Overall ejection fraction estimated at 50%. 2. Left atrium is within normal limits at 3.9 cm. Right atrium and right ventricular chamber sizes are mildly dilated. 3. Valvular structures have normal structure and motion. ECHOCARDIOGRAM REPORT [id number] LUIS BELLO 4. Doppler interrogation reveals mild aortic stenosis. Valve area calculates to 1.0 cm-squared. There is a gradient of 23 mm across the valve. The remaining valvular structures have normal structure and motion. 5. Doppler interrogation elsewise reveals mild aortic insufficiency, mild mitral regurgitation, mild tricuspid regurgitation, no other valvular insufficiency or stenosis. Pulmonary systolic pressure is normal estimated at 25 mmHg. 6. No evidence of pericardial effusion or left ventricular thrombus. TRANSINT:[id number] Voice Confirmation ID: [id number] DOCUMENT ID: [id number] GA RATLIFF MD at 1112 CC: [id number] DICTATION DATE: 03/24/16 1313 ADULT SCHOOL TEACHER: 03/24/16 2227 ADM IN [facility] [address] [id number]
[2016-03-27 11:29] VITALS: BP 140/63
--- NOTE | 2016-03-27 11:55 | NUR ---
SITTING IN ROOM WITH AND FAMILY. DENIES NEEDS AT THIS TIME. CALL LIGHT IN REACH.
[2016-03-27] MEDS ORDERED: XARELTO15 MG PO (12:46)
--- NOTE | 2016-03-27 13:10 | NUR ---
CM REASSESSMENT NOTE: PATIENT WILL BE DISCHARGING TO IP REHAB TODAY. PATIENT SIGNED THE IMM NOTICE. PATIENTS FAMILY AWARE- AT BEDSIDE.
--- NOTE | 2016-03-27 13:25 | NUR ---
IN ROOM WATCHING TV. DENIES PAIN OR NEEDS.
--- NOTE | 2016-03-27 13:36 | CN ---
PATIENT NAME:LUIS BELLO MEDICAL RECORD: [id number] : 37 LOCATION:D.MS [id number] ADMIT DATE: 03/23/16 ACCOUNT: [id number] CONSULTING PHYSICIAN: CARLENE DUFFY MD REFERRING PHYSICIAN: BALTAZAR GREY MD DATE OF CONSULTATION: 03/26/2016 Cardiology Consultation HISTORY OF PRESENT ILLNESS: A 80-year-old gentleman with a history of coronary artery disease, status post intervention, has a history paroxysmal atrial fibrillation, was recently switched from Betapace to add amiodarone, admitted with CVA. He is 1 month out from an Integrity non-medicated stent placement via Dr. Ratliff. 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 We are still considering anticoagulation. He has been unsteady on his feet since his CVA with quite a bit of a vertigo type symptomatology. PAST MEDICAL HISTORY: 1. History of coronary artery disease, status post intervention. 2. Dyslipidemia. 3. Atrial fibrillation. 4. Probable obstructive pulmonary disease. ALLERGIES: INSECT VENOM. MEDICATIONS ON ADMISSION: Include Plavix 75 q. day, Crestor 5 q. day, losartan 50/12.5 q. day, amitriptyline 25 q.h.s., sotalol 50 mg p.o. q. day. SOCIAL HISTORY: , lives here in [place], smokes about a half pack a day. REVIEW OF SYSTEMS: The patient reports easy bruising but reports no swollen glands. The patient reports no fever, no night sweats, no significant weight gain, no significant weight loss. No significant exercise tolerance. The patient reports no dry eyes, no irritation, no vision change. Patient reports no difficulty hearing and no ear pain. Patient reports no frequent nose bleeds or nose and sinus problems. Patient reports on arm pain on exertion. No shortness of breath while lying down. No history of heart murmur. Patient reports no cough, no wheezing or coughing up blood. Patient reports no abdominal pain, no vomiting. Normal appetite. No diarrhea and not vomiting blood. No nausea and no constipation. Patient reports no incontinence. No difficulty urinating. No hematuria. No increased frequency. Patient reports no muscle aches. No weakness, no arthralgias, no back pain. No swelling of the extremities. Patient reports no abnormal mole, no jaundice, no rashes. Reports no loss of consciousness. No weakness and no numbness. No seizures, dizziness, or headaches. The patient reports no depression, no sleep disturbance, feeling safe in a relationship and no alcohol abuse. Patient reports on fatigue. Reports no runny nose or sinus pressure. No itching, no hives, and no frequent sneezing. PHYSICAL EXAMINATION: GENERAL: Elderly gentleman, in no acute distress currently. VITAL SIGNS: Blood pressure 114/71, pulse 93 and regular. HEENT: Normocephalic and atraumatic. NECK: No JVD or bruit. CONSULT REPORT [id number] LUIS BELLO HEART: Regular. LUNGS: [place] clear. EXTREMITIES: Pulses 2+. There is no edema. NEUROLOGICAL: ECG currently shows sinus rhythm with some PACs. 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 Given recent cerebrovascular accident, unsteadiness on feet, etc., would hesitate to use a 3-tier therapy. We will use NOAC and aspirin a day. Okay from a cardiovascular standpoint. TRANSINT:[id number] Voice Confirmation ID: [id number] DOCUMENT ID: [id number] CARLENE DUFFY MD at 1336 CC: [id number] DICTATION DATE: 03/26/16 142 ENGINEERING MATHEMATICIAN: 03/26/16 1817 ADM IN [place] [id number] [place] [id number]
[2016-03-27 15:04] VITALS: BP 156/78
--- NOTE | 2016-03-27 15:10 | NUR ---
NO NEEDS VOICED AT THIS TIME. CALL LIGHT IN REACH.
--- NOTE | 2016-03-27 17:11 | NUR ---
REPORT CALLED TO CORDELIA HATCH, IN REHAB.
--- NOTE | 2016-03-27 17:54 | NUR ---
ASHA PO. IN ROOM. CALL LIGHT IN REACH.
--- NOTE | 2016-03-27 18:00 | NUR ---
DC'D TO REHAB VIA WC.
== END 2016-03-27 18:00 | DRG 66 ==
LOC: D.ER 16:54 → OBSVTIME 20:31 → D.MS 20:31
PROVIDERS: Emergency Medicine; ADMIT Family Medicine
DX: I63.9 Cerebral infarction, unspecified (principal); R42 Dizziness and giddiness; I10 Essential (primary) hypertension; E78.5 Hyperlipidemia, unspecified; J44.9 Chronic obstructive pulmonary disease, unspecified; G62.9 Polyneuropathy, unspecified; I25.10 Atherosclerotic heart disease of native coronary artery without angina pectoris; Z95.5 Presence of coronary angioplasty implant and graft; I08.3 Combined rheumatic disorders of mitral, aortic and tricuspid valves; F17.200 Nicotine dependence, unspecified, uncomplicated

== ENCOUNTER 2016-03-27 18:00 | Inpatient (IN) | payer MEDICARE, BC ==
[~2016-03-27] VITALS: Ht 175.3 cm; Wt 70.3 kg
[~2016-03-27 18:00] MED LIST changes: +XARELTO15 MG PO
--- NOTE | 2016-03-27 18:30 | NUR ---
RECEIVED TO ROOM 1114B VIA WHEELCHAIR. ALERT AND TALKATIVE. VISITOR IN THE ROOM.
[2016-03-27 22:03] VITALS: BP 146/72; BMI 23.0
--- NOTE | 2016-03-28 00:19 | NUR ---
PT. IN BED WITH HOB UP FOR COMFORT LYING ON HIS LEFT SIDE WITH EYES CLOSED AND RESP. EVEN. CALL LIGHT WITHIN REACH.
--- NOTE | 2016-03-28 04:01 | NUR ---
PT. IN BED WITH HOB UP FOR COMFORT LYING ON HIS RIGHT SIDE WITH EYES CLOSED AND RESP. EVEN. CALL LIGHT WITHIN REACH.
[2016-03-28 06:11] LABS: BASOPHILS 0.4 % (0.0-2.0); EOSINOPHILS 8.1 % (0-7); HEMATOCRIT 40.5 % (42.0-54.0); HEMOGLOBIN 13.4 g/dL (13.5-17.5); IMMATURE GRANULOCYTES 0.3 % (0-5); LYMPHOCYTES 39.5 % (15-50); MCH 30.9 pg (26.0-34.0); MCHC 33.1 g/dL (31.0-37.0); MCV 93.5 fL (80.0-100.0); MEAN PLATELET VOLUME 9.7 fL (7.4-10.4); MONOCYTES 8.3 % (2-11); NEUTROPHILS 43.4 % (40-80); PLATELET COUNT 210 10x3/uL (130-400); RBC 4.33 10x6/uL (4.20-6.10); RDW 12.9 % (11.5-14.5); WBC 9.7 10x3/uL (4.8-10.8)
[2016-03-28 06:40] LABS: ANION GAP 8.8 mmol/L (8-16); CALCIUM 8.9 mg/dL (8.5-10.1); CARBON DIOXIDE 32.6 mmol/L (21.0-32.0); CREATININE - SERUM 1.2 mg/dL (0.6-1.3); POTASSIUM - SERUM 4.4 mmol/L (3.5-5.1)
--- NOTE | 2016-03-28 08:04 | NUR ---
SITTING UP IN BED EATING BREAKFAST. DENIES PAIN OR NEEDS. USES WALKER FOR AMBULATOIN ASST.
[2016-03-28 09:17] VITALS: Ht 175.3 cm; Wt 70.3 kg
[2016-03-28 10:04] VITALS: BP 114/68
--- NOTE | 2016-03-28 10:13 | NUR ---
RESTING IN BED WATCHING TV. CALL LIGHT IN REACH
--- NOTE | 2016-03-28 17:36 | NUR ---
SITTING IN ROOM EATING SUPPER WITH . DENIES PAIN. MINIMAL ASST. USES WALKER
--- NOTE | 2016-03-28 18:00 | NUR ---
EVENING MEDS GIVEN EARLY AT PT INSISTANCE STATING IT TAKES HIS MEDS A LONG TIME TO WORK AND IF GIVEN AT 2100 HE WONT BE ABLE TO SLEEP TILL MIDNIGHT
--- NOTE | 2016-03-28 19:15 | NUR ---
PT. IN BED WITH HOB UP FOR COMFORT AND WATCHING TV. IN ROOM ALSO AND SHE WILL BE SPENDING THE NIGHT. GAVE MORE INFO ABOUT PT'S HISTORY. PT. HAS HAD SEVERAL FALLS RECENTLY AND THIS LAST ONE WAS WHEN HE BLACKED OUT COMPLETELY AND CAME TO LATER AND THAT'S WHEN HE CALLED [address] LOREDO'S OFFICE, HE WAS TO SEE THAT MD THAT DAY. ASSESSMENT COMPLETED. PT. HAS NO VOICED NEEDS AND CALL LIGHT IS WITHIN REACH.
--- NOTE | 2016-03-28 21:29 | NUR ---
PT. IN BED WITH HOB UP FOR COMFORT WATCHING TV. NO VOICED NEEDS AT THIS TIME AND CALL LIGHT IS WITHIN HIS REACH. IN ROOM FOR THE NIGHT ALSO.
[2016-03-28 21:40] VITALS: BP 164/62
--- NOTE | 2016-03-29 00:22 | NUR ---
PT. IN BED WITH HOB UP FOR COMFORT LYING ON HIS LEFT SIDE WITH EYES CLOSED AND RESP. EVEN. CALL LIGHT WITHIN REACH. ASLEEP IN ROOM.
--- NOTE | 2016-03-29 02:04 | NUR ---
PT. IN BED WITH HOB UP FOR COMFORT LYING ON HIS LEFT SIDE WITH EYES CLOSED AND RESP. EVEN. CALL LIGHT WITHIN REACH. ASLEEP IN ROOM ALSO.
--- NOTE | 2016-03-29 06:01 | NUR ---
PT. IN BED LYING ON HIS RIGHT SIDE WITH EYES CLOSED AND RESP. EVEN. CALL LIGHT IS WITHIN REACH. ASLEEP ALSO IN THE ROOM.
[2016-03-29 07:00] VITALS: BP 111/73
--- NOTE | 2016-03-29 07:30 | NUR ---
RESTING QUIETLY IN BED. CALL LIGHT IN REACH
--- NOTE | 2016-03-29 11:46 | NUR ---
BP MEDS HELD THIS AM DUE TO LOW BP. RECHECKED AT 1145 AND WAS 131/70. BP MEDS GIVEN.
--- NOTE | 2016-03-29 17:55 | NUR ---
SITTING UP IN BED EATING SUPPER AND WATCHING TV. DENIES PAIN OR NEEDS. ASKED FOR EVENING MEDS EARLY DUE TO THAT IS HOW HE TAKES THEM AT HOME AND THE TIME FRAME IS AGREEABLE WITH HIM. HE STATES IT TAKES HIS MEDS A WHILE TO WORK AND HE RESTS BETTER WITH MEDS GIVEN EARLY. HIS HS MEDS WERE GIVEN EARLY YESTERDAY AND HE STATES HE RESTED VERY WELL LAST PM.
[2016-03-29 18:54] VITALS: BP 139/75
--- NOTE | 2016-03-29 20:00 | NUR ---
PT IN BED WATCHING TV WITH NO SIGN/SYMPTOMS OF DISTRESS NOTED. NO CONCERNS MADE KNOWN AT THIS TIME. WATER AND CALL LIGHT IN REACH. WILL CONTINUE TO OBSERVE.
--- NOTE | 2016-03-29 23:04 | NUR ---
PT IN BED WITH EYES CLOSED AND CHEST RISING. EASILY AROUSED UPON ENTRY. NO NEEDS MADE KNOWN. WATER AND CALL LIGHT IN REACH. WILL CONTINUE TO OBSERVE.
--- NOTE | 2016-03-30 01:25 | NUR ---
PT IN BED WITH EYES CLOSED AND CHEST RISING. NO SIGN/SYMPTOMS OF DISTRESS NOTED AT THIS TIME. WATER AND CALL LIGHT IN REACH. WILL CONTINUE TO OBSERVE.
--- NOTE | 2016-03-30 03:49 | NUR ---
PT IN BED WITH EYES CLOSED AND CHEST RISING. RESPIRATIONS EVEN AND UNLABORED. NO SIGN/SYMPTOMS OF DISTRESS NOTED AT THIS TIME. WATER AND CALL LIGHT IN REACH.
--- NOTE | 2016-03-30 05:23 | NUR ---
PT IN BED WITH EYES CLOSED AND CHEST RISING. RESPIRATIONS EVEN AND UNLABORED. NO CONCERNS NOTED AT THIS TIME. CALL LIGHT IN REACH.
[2016-03-30 05:55] LABS: BASOPHILS 0.3 % (0.0-2.0); EOSINOPHILS 8.3 % (0-7); HEMATOCRIT 40.2 % (42.0-54.0); HEMOGLOBIN 13.4 g/dL (13.5-17.5); IMMATURE GRANULOCYTES 0.2 % (0-5); LYMPHOCYTES 39.5 % (15-50); MCH 30.8 pg (26.0-34.0); MCHC 33.3 g/dL (31.0-37.0); MCV 92.4 fL (80.0-100.0); MEAN PLATELET VOLUME 9.8 fL (7.4-10.4); MONOCYTES 8.3 % (2-11); NEUTROPHILS 43.4 % (40-80); PLATELET COUNT 218 10x3/uL (130-400); RBC 4.35 10x6/uL (4.20-6.10); RDW 12.9 % (11.5-14.5); WBC 9.7 10x3/uL (4.8-10.8)
[2016-03-30 06:25] LABS: CALCIUM 9.2 mg/dL (8.5-10.1); CARBON DIOXIDE 29.1 mmol/L (21.0-32.0); CREATININE - SERUM 1.2 mg/dL (0.6-1.3); POTASSIUM - SERUM 4.1 mmol/L (3.5-5.1)
--- NOTE | 2016-03-30 07:30 | NUR ---
RESTING QUIETLY IN BED. CALL LIGHT IN REACH. DENIES PAIN OR NEEDS.
[2016-03-30 09:49] VITALS: BP 133/58
--- NOTE | 2016-03-30 14:01 | NUR ---
DENIES BEING DIZZY AT PRESENT. DENIES EARS RINGING. USES W/C FOR MOTION ASST
[2016-03-30 17:50] VITALS: BP 142/74
--- NOTE | 2016-03-30 17:56 | NUR ---
SITTING IN W/C IN ROOM VISITING WITH FAMILY
--- NOTE | 2016-03-30 19:19 | NUR ---
PT IN BED WITH LIGHTS OUT WATCHING TV. NO CONCERNS OR COMPLAINTS OF PAIN MADE AT THIS TIME. CALL LIGHT IN REACH. WILL CONTINUE TO OBSERVE.
--- NOTE | 2016-03-30 22:04 | NUR ---
PT IN BED WITH EYES CLOSED AND CHEST RISING. RESPIRATIONS EVEN AND UNLABORED. WATER AND CALL LIGHT IN REACH. WILL CONTINUE TO OBSERVE.
--- NOTE | 2016-03-31 01:22 | NUR ---
PT IN BED WITH EYES CLOSED AND CHEST RISING. NO CONCERNS AT THIS TIME. CALL LIGHT IN REACH. WILL CONTINUE TO OBSERVE.
--- NOTE | 2016-03-31 04:23 | NUR ---
PT IN BED WITH EYES CLOSED AND CHEST RISING. RESPIRATIONS EVEN AND UNLABORED. NO CONCERN NOTED AT THIS TIME. CALL LIGHT IN REACH. WILL CONTINUE TO OBSERVE.
--- NOTE | 2016-03-31 06:25 | NUR ---
PT IN BED WITH EYE CLOSED. EASILY AROUSE UPON ENTRY. PT STATES THAT HE URINATED 4 TIMES THROUGHOUT THE NIGHT. NO NEEDS OR CONCERNS MADE KNOWN. CALL LIGHT IN REACH.
--- NOTE | 2016-03-31 07:00 | NUR ---
Pt. was received at the beginning of this shift in bed awake and oriented x 4. Denies any needs or concerns. No signs of any discomfort or distress. Stable condition observed. Vital signs: Temp. 98.3, pulse 101, resp. 14, b/p 122/67, 02Sat. 98%. Denies any dizzyness today. Will be monitoring pt. throughout this shift and assisting prn with adl's.
[2016-03-31 09:34] VITALS: BP 122/67
--- NOTE | 2016-03-31 12:54 | NUR ---
Nutrition Follow Up: Pt reported that his appetite is good. He said that everything has been great. Pt stated that he is drinking 2-3 Ensure each day. Pt is eating 64% meal avg on an AHA diet. Wt stable. +BM 03/30/16. Meds and labs noted. Rec continue current diet. RD following.
--- NOTE | 2016-03-31 17:55 | NUR ---
Pt. has had an uneventful day today. He went to therapy today and worked hard. His came for a visit today. He did take a shower this afternoon and his linens were changed.
--- NOTE | 2016-03-31 20:00 | NUR ---
PT RESTING IN A RECLINER IN HIS ROOM WATCHING TV. PT VOICED COMPLAINT THAT HE HAD NOT RECIEVED HIS NIGHT TIME MEDICATIONS YET. I INFORMED HIM THAT THEY ARE NOT DUE UNTIL 2100. HE STATED HE TOOK THEM ALL AT 1800 AT HOME, AND WOULD LIKE THEM CHANGED. DR CARPENTER NOTIFIED, AND NEW ORDER RECIEVED TO CHANGE TIMES. PT DENIES ANY PAIN OR DISCOMFORT AT THIS TIME. SR'S ARE UP X 2 IN BED. CALL LIGHT AND BEDSIDE TABLE ARE WITHIN EASY REACH.
[2016-03-31 20:24] VITALS: BP 127/74
--- NOTE | 2016-03-31 22:21 | NUR ---
PT RESTING QUIETLY IN BED WITH EYES CLOSED. RESPS ARE EVEN AND UNLABORED. NO ACUTE DISTRESS NOTED.
--- NOTE | 2016-04-01 01:26 | NUR ---
RESTING QUIETLY WITH EYES CLOSED, RESPIRATIONS REGULAR AND UNLABORED. NO S/S OF ACUTE DISTRESS.
[2016-04-01 06:05] LABS: BASOPHILS 0.5 % (0.0-2.0); EOSINOPHILS 8.6 % (0-7); HEMATOCRIT 39.2 % (42.0-54.0); HEMOGLOBIN 13.2 g/dL (13.5-17.5); IMMATURE GRANULOCYTES 0.4 % (0-5); LYMPHOCYTES 36.4 % (15-50); MCH 31.1 pg (26.0-34.0); MCHC 33.7 g/dL (31.0-37.0); MCV 92.2 fL (80.0-100.0); MEAN PLATELET VOLUME 10.3 fL (7.4-10.4); MONOCYTES 8.2 % (2-11); NEUTROPHILS 45.9 % (40-80); PLATELET COUNT 208 10x3/uL (130-400); RBC 4.25 10x6/uL (4.20-6.10); RDW 13.1 % (11.5-14.5); WBC 8.3 10x3/uL (4.8-10.8)
--- NOTE | 2016-04-01 06:21 | NUR ---
PT RESTING IN BED WITH EYES CLOSED. ASSISTED TO BATHROOM PRN.
[2016-04-01 06:25] LABS: ANION GAP 11.6 mmol/L (8-16); CALCIUM 8.9 mg/dL (8.5-10.1); CARBON DIOXIDE 29.4 mmol/L (21.0-32.0); CREATININE - SERUM 1.2 mg/dL (0.6-1.3)
--- NOTE | 2016-04-01 08:00 | NUR ---
SITTING UP IN CHAIR.CL IN REACH
--- NOTE | 2016-04-01 08:16 | NUR ---
PT RESTING IN BED WITH EYES OPEN CALL LIGHT IN REACH PT EATING BREAKFAST TOLERATING WELL WILL MONITER
--- NOTE | 2016-04-01 15:13 | NUR ---
CARE TEAM MEETING: PATIENT PROGRESSING WELL IN THERAPY AND TENATIVE DISCHARGE DATE IS 04/20/16. PATIENT PCP IS DR. GREY AND HE USES [facility]. WILL CONTINUE TO FOLLOW WITH PATIENT UNTIL DISCHARGED
--- NOTE | 2016-04-01 17:59 | NUR ---
PT RESTING IN BED WITH EYES OPEN CALL LIGHT IN REACH NO PROBLEMS WILL MONITER
--- NOTE | 2016-04-01 20:00 | NUR ---
PT IS RESTING IN BED WITH EYES CLOSED. AWOKE EASILY TO VERBAL STIMULI. PT NOT HAPPY ABOUT BEING AWOKEN. VSS. PT IS ALERT AND ORIENTED X 4. DENIES ANY DISCOMFORT AT THIS TIME. " I JUST WANT TO BE LEFT ALONE, SO I CAN GET SOME @#$% SLEEP." SR'S ARE UP X 2 IN BED. CALL LIGHT AND BEDSIDE TABLE ARE WITHIN EASY REACH.
--- NOTE | 2016-04-01 22:20 | NUR ---
RESTING QUIETLY IN BED WITH EYES CLOSED. RESPS ARE EVEN AND UNLABORED. NO ACUTE DISTRESS NOTED.
--- NOTE | 2016-04-01 23:05 | NUR ---
PT. IN BED WITH HOB SLIGHTLY ELEVATED FOR COMFORT AND LYING ON HIS LEFT SIDE WITH EYES CLOSED AND RESP. EVEN. CALL LIGHT WITHN REACH.
[2016-04-01 23:06] VITALS: BP 125/97
--- NOTE | 2016-04-02 00:58 | NUR ---
RESTING IN BED WITH EYES CLOSED.
--- NOTE | 2016-04-02 03:00 | NUR ---
PT RESTING IN BED WITH EYES CLOSED. NO DISTRESS NOTED. USING BATHROOM PRN.
--- NOTE | 2016-04-02 04:58 | NUR ---
PT RESTING IN BED WITH EYES CLOSED.
[2016-04-02 08:10] VITALS: BP 132/77
--- NOTE | 2016-04-02 09:40 | NUR ---
SITTING UP IN BEDSIDE CHAIR IN ROOM.ALERT AND ORIENTED X 3.DENIES PAIN AND NEEDS.ASSESSMENT COMPLETED.CL IN EASY REACH,BED IN LOW POSITION.WILL CONTINUE WITH PLAN OF CARE.
--- NOTE | 2016-04-02 09:47 | NUR ---
sitting in w/c in room. call light in reach
--- NOTE | 2016-04-02 18:47 | NUR ---
LAYING IN BED. ATE GOOD SUPPER. DENIES NEEDS
[2016-04-02 19:48] VITALS: BP 123/75
--- NOTE | 2016-04-02 20:00 | NUR ---
PT IS SITTING IN A RECLINER IN HIS ROOM WATCHING TV. ALERT AND ORIENTED X 4. DENIES ANY DISCOMFORT. VSS. STATES: "IM ABOUT TO LAY DOWN FOR THE NIGHT." SR'S ARE UP X 2 IN BED. CALL LIGHT AND BEDSIDE TABLE ARE WITHIN EASY REACH.
--- NOTE | 2016-04-02 22:15 | NUR ---
PT. IN BED LYING ON HIS LEFT SIDE WITH EYES CLOSED AND RESP. EVEN. CALL LIGHTL WITHIN REACH.
--- NOTE | 2016-04-03 01:00 | NUR ---
PT IS RESTING QUIETLY IN BED WITH EYES CLOSED.
--- NOTE | 2016-04-03 04:27 | NUR ---
RESTING IN BED WITH EYES CLOSED.
--- NOTE | 2016-04-03 06:02 | NUR ---
PT RESTING IN BED WITH EYES CLOSED. NO DISTRESS NOTED.
--- NOTE | 2016-04-03 07:30 | NUR ---
RESTING QUIETLY IN BED. CALL LIGHT IN REACH
--- NOTE | 2016-04-03 09:42 | NUR ---
PATIENT DISCHARGING HOME WITH SPOUSE ON 04/04/16. PATIENT DOES NOT NEED ANY DME OR HOME HEALTH AT THIS TIME. APPOINTMENT: DR. GREY 04/10/16 @ 11:00. [facility] FORM SIGNED, EXPLAINED AND FILED IN CHART. WILL CONTINUE TO FOLLOW WITH PATIENT UNTIL DISCHARGED
--- NOTE | 2016-04-03 10:19 | NUR ---
SITTING UP IN W/C. DENIES NEEDS
--- NOTE | 2016-04-03 12:28 | NUR ---
EATING LUNCH IN ROOM. DENIES NEEDS OR C/O
[2016-04-03 12:29] VITALS: BP 133/69
--- NOTE | 2016-04-03 19:42 | NUR ---
PT IN BED WITH EYES OPEN AND WATCHING TV. NO CONCERNS ON NEEDS MADE KNOWN AT THIS TIME. CALL LIGHT IN REACH. WILL CONTINUE TO OBSERVE.
--- NOTE | 2016-04-03 22:51 | NUR ---
PT IN BED WITH EYES OPEN WATCHING TV. NO NEEDS OR CONCERNS MADE KNOWN AT THIS TIME. CALL LIGHT AND WATER IN REACH. WILL CONTINUE TO OBSERVE.
[2016-04-03 23:28] VITALS: BP 151/69
--- NOTE | 2016-04-04 01:02 | NUR ---
PT RESTING IN BED WITH EYES CLOSED AND CHEST RISING. RESPIRATIONS EVEN AND UNLABORED. NO CONCERNS NOTED AT THIS TIME. CALL LIGHT AND WATER IN REACH. WILL CONTINUE TO OBSERVE.
--- NOTE | 2016-04-04 03:38 | NUR ---
PT IN BED WITH EYES CLOSED AND CHEST RISING. RESPIRATIONS EVEN AND UNLABORED. NO CONCERNS NOTED AT THIS TIME. WATER AND CALL LIGHT IN REACH. WILL CONTINUE TO OBSERVE.
--- NOTE | 2016-04-04 06:42 | NUR ---
PT IN BED WITH EYES CLOSED AND CHEST RISING. NO CONCERNS NOTED AT THIS TIME. CALL LIGHT IN REACH.
--- NOTE | 2016-04-04 07:00 | NUR ---
Pt. was received sitting in wheelchair in his room at the beginnning of this shift. No verbal complaints or signs of discomfort or distress. Stable condition observed. Vital signs: Temp. 98.7, pulse 62, resp. 16, b/p 132/72, 02Sat. 98%. Pt. is excited about discharging today.
[2016-04-04 10:02] VITALS: BP 137/72
--- NOTE | 2016-04-04 11:00 | NUR ---
Pt. was discharged from unit with his of 61 years via personal van. Pt. understood discharge paperwork and medications. All of his personal belongings were taken with pt. Pt. was wheeled out of hospital to awaiting van. Stable condition upon leaving the unit.
--- NOTE | 2016-04-10 10:44 | RHP ---
PATIENT: LUIS BELLO MEDICAL RECORD: [id number] ACCOUNT: [id number] LOCATION:[facility]1114 : 37 ADMISSION DATE: 03/27/16 REHABILITATION HISTORY AND PHYSICAL EXAMINATION POST ADMISSION PHYSICIAN EXAMINATION DATE OF ADMISSION TO THE REHAB: 03/27/2016 ADMITTING DIAGNOSES: Left cerebral infarct, paroxysmal atrial fibrillation and ataxic gait. HISTORY OF PRESENT ILLNESS: The patient is a 80-year-old gentleman, admitted with a left cerebral infarction. He has got a history of hypertension, coronary artery disease, CODP, and most recent coronary artery stenting done back in January. The patient had paroxysmal atrial fib and stopped the treadmill several days prior to the event, longstanding history of dizziness, vertigo and certain head movements such as bending over and then straightening up, turning in bed or sitting up, caused him to have problems, then 1 week ago, he had been looking down, but had no real head movements and that he felt somewhat being dizzy and off balanced. When he tried to walk into the house, he ____ move his legs coordinate. He seemed to have staggered and pitched ____. Once inside, he tried to write, but his right hand were not coordinate, no associated symptoms of language dysfunction, but rather trouble getting his hand to coordinate, symptoms pretty much were gone after about 30 minutes, but his committed he was staggering, holding onto paulson for balance, balancing off the paulson for a few days, thereafter, he suffered several falls. MRI showed a subacute stroke, left anterior cerebral hemisphere, chronic small vessel ischemia in the periventricular white matter. Barium swallow revealed no signs of aspirations. Cardiology and neurology were consulted. Apparently, he is independent with ADLs and mobility without device. Currently, he is moderate to max assist for ADLs and mobility with a rolling walker, gait belt and assist. He lives with his , but at home, he has a multilevel area with stairs and no hand rails increasing his risk for falls and continued problems with his gait. He will definitely need inpatient care to get back to a prior level of functioning and also monitor his AFib. COMORBIDITIES: Include a left cerebral hemispheric infarct, paroxysmal atrial fib, nystagmus, neuropathy, COPD, hypertension, coronary artery disease, recent stent placement. 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 PAST MEDICAL HISTORY: Significant for coronary artery disease, COPD, hypertension and known stenting recently. PAST SURGICAL HISTORY: Includes coronary artery stent placement, hernia repair and also skin cancer removal. ALLERGIES: HYMENOPTERA. CURRENT MEDICATIONS: Include Zoloft 50 mg daily, Crestor 5 mg daily, Xarelto 15 mg daily, aspirin 81 mg daily, polyethylene glycol 17 grams in 8 ounce of water daily, hydrochlorothiazide 12.5 mg b.i.d., Cozaar 50 mg b.i.d., and Elavil 25 mg h.s. HABITS: No alcohol or tobacco use. HISTORY AND PHYSICAL [id number] LUIS BELLO FAMILY HISTORY: Noncontributory. SOCIAL HISTORY: The patient was return back home and get back to his prior level of functioning. He lives in [place]. REVIEW OF SYSTEMS: GENERAL: Does complain of weakness and fatigue. HEENT: Denies cold, cough, or congestion. CARDIOVASCULAR: Denies chest pain. PHYSICAL EXAMINATION: VITAL SIGNS: Stable, afebrile. GENERAL: Elderly gentleman in no acute distress, alert upon exam. HEENT: Normocephalic and atraumatic. Mucosa moist. NECK: Supple. No lymphadenopathy. LUNGS: Clear at this time. HEART: Irregular rate and rhythm. ABDOMEN: Benign. EXTREMITIES: Consistent with no clubbing, cyanosis or edema. NEUROLOGIC: He is intact except for some weakness. LABORATORY DATA: His white count is 9.7, H&H of 13 and 41 and platelet count is noted to be 210. His sodium is 141, potassium 4.4, BUN and creatinine of 23 and 1.2, and blood sugar was noted to be 62. ASSESSMENT: This 80-year-old gentleman admitted to the rehab with a working diagnoses of left cerebral infarct, paroxysmal atrial fibrillation and ataxic gait. The patient has potential to make improvement. We instituted the following multidisciplinary therapies including to, but not limited to physical, occupational, respiratory, speech, nutritional services, prosthetics and orthotics. Given his complex gestures for more complications, rehabilitation services cannot be provided at a low level of care such as a senior living facility. PLAN: 1. Admit to [facility] rehab for intensive inpatient therapy to include the following disciplines: A. Physical therapy to improve gait, all transfer skills and bed mobility to a modified independent level. B. Occupational therapy to improve activities of daily living to a modified independent level. C. Case management to assist with discharge planning and placement options. D. Nutrition to assist with nutritional needs. E. Rehabilitation nursing to assist in monitoring the patient's underlying medical conditions and to assist with any type of bowel or bladder management. 2. The patient's current medication and medical care will be continued. 3. The patient will be placed on standard fall precautions. 4. The patient's estimated length of stay is approximately 7-10 days. 5. Discuss this patient during care team staff meeting this week. TRANSINT:[id number] Voice Confirmation ID: [id number] DOCUMENT ID: [id number] HISTORY AND PHYSICAL [id number] LUIS BELLO SCOTT MD at 1044 CC: [id number] DICTATION DATE: 03/28/16 1257 MARKETING FINANCE MANAGER: 03/28/16 1835 DIS IN 04/04/[address] [facility] [address] [place] [address]
--- NOTE | 2016-05-06 12:30 | DS ---
PATIENT:LUIS BELLO :37 MEDICAL RECORD: [id number] DISCHARGE SUMMARY ADMISSION DATE: 03/27/16 DISCHARGE DATE: 04/04/16 This is a discharge dated 04/04/2016 from the inpatient rehab. PRIMARY DIAGNOSIS: Decreased functional ability and ability to provide activities of daily living status post cerebrovascular accident. SECONDARY DIAGNOSES: 1. Hypertension. 2. Atrial fibrillation. 3. Carotid artery occlusion. 4. Neuropathy. 5. Coronary artery disease. 6. Hyperlipidemia. 7. COPD. HOSPITAL COURSE: Full H&P is located elsewhere in the chart on the 80-year-old male who was admitted to inpatient rehab for physical therapy and occupational therapy to improve gait, transfer skills, bed mobility, and activities of daily living to a modified independent level. He was evaluated by PT and OT and their plans of care were followed. He required senior care care for observation and assessment and medication administration. He was cooperative with therapies, progressing towards goals. The case management was involved for discharge planning. He was considered stable for discharge on 04/04/2016 having met all long-term goals with occupational therapy as well as physical therapy. DISCHARGE MEDICATIONS: As per discharge medication reconciliation. DISCHARGE DISPOSITION: The patient is discharged home. He will continue his current diet and level of activity. He will have home health for continued physical therapy and will follow up with primary care in 7-10 days. TRANSINT:[id number] Voice Confirmation ID: [id number] DOCUMENT ID: [id number] Dictated By: IFEOMA PEARSON I have interviewed/examined the above patient and agree with these documented findings. JAVIER CARPENTER MD at 1230 at 1231 CC: [id number] DICTATION DATE: 05/02/16 1312 ALTERATION MANAGER: 05/03/16 0004 DIS IN 04/04/16 [facility] [address] [place] [id number]
== END 2016-04-04 11:02 | disposition home or self-care (01) | DRG 66 ==
LOC: D.REHAB 18:00
PROVIDERS: ADMIT Emergency Medicine
DX: I63.9 Cerebral infarction, unspecified (principal); I48.0 Paroxysmal atrial fibrillation; H55.00 Unspecified nystagmus; G62.9 Polyneuropathy, unspecified; J44.9 Chronic obstructive pulmonary disease, unspecified; I10 Essential (primary) hypertension; I25.10 Atherosclerotic heart disease of native coronary artery without angina pectoris; E78.5 Hyperlipidemia, unspecified; Z95.5 Presence of coronary angioplasty implant and graft; R26.0 Ataxic gait; I49.9 Cardiac arrhythmia, unspecified; E86.0 Dehydration

== ENCOUNTER → 2016-04-14 13:22 | Outpatient (CLI) | payer MEDICARE, BC ==
[2016-03-28 09:17] VITALS: BMI 22.9
== END | disposition home or self-care (01) ==
LOC: D.CT 13:22
DX: R91.1 Solitary pulmonary nodule (principal)

== ENCOUNTER → 2016-07-30 07:07 | Outpatient (CLI) | payer MEDICARE, BC ==
[2016-03-28 09:17] VITALS: BMI 22.9
== END | disposition home or self-care (01) ==
LOC: D.RAD 07:07
DX: K92.1 Melena (principal)

== ENCOUNTER → 2016-10-14 14:36 | Outpatient (CLI) | payer MEDICARE, BC ==
[2016-03-28 09:17] VITALS: BMI 22.9
== END | disposition home or self-care (01) ==
LOC: D.CT 14:36
DX: R91.1 Solitary pulmonary nodule (principal)

== ENCOUNTER → 2017-01-01 11:08 | Outpatient (CLI) | payer MEDICARE, BC ==
[2016-03-28 09:17] VITALS: BMI 22.9
[~2017-01-01 11:08] MED LIST changes: +PROSCAR5 MG PO
== END | disposition home or self-care (01) ==
LOC: D.CT 11:08
DX: D72.829 Elevated white blood cell count, unspecified (principal); C61 Malignant neoplasm of prostate; C77.8 Secondary and unspecified malignant neoplasm of lymph nodes of multiple regions

== ENCOUNTER 2017-03-22 08:33 | Outpatient (CLI) | payer MEDICARE, BC ==
[~2017-03-22] VITALS: Ht 177.8 cm; Wt 74.1 kg
--- NOTE | ~2017-03-22 | OP ---
PATIENT NAME: LUIS BELLO MEDICAL RECORD: [id number] :37 LOCATION:[facility] ADMISSION DATE: SURGEON: GA LOREDO MD DATE OF OPERATION: 03/22/2017 PROCEDURES: 1. PTCA stent to RCA. 2. Intravascular ultrasound. 3. Left heart catheterization. 4. Selective coronary angiography. 5. Left ventriculogram. INDICATION: Angina and coronary artery disease. PROCEDURE IN DETAIL: After informed consent was obtained and after detailed explanation of risks, benefits as well as alternative therapies, the patient elected to proceed with angiogram and angioplasty. The right femoral area was prepped and draped in normal sterile fashion. Right femoral artery was cannulated via modified Seldinger technique with placement of a 6-Irish sheath. All catheters exchanged through this sheath. FINDINGS: The left ventriculogram was performed in standard 30-degree ROMERO view, reveals good cardiac wall motion, ejection fraction 50% to 55%. SELECTIVE CORONARY ANGIOGRAPHY: 1. Left main showed no significant angiographic disease. 2. Left anterior descending has mild irregularities, but no flow-limiting stenosis. 3. The left circumflex has previously placed stent that is widely patent with no significant restenosis. No disease elsewise. 4. The right coronary artery has previously placed stents. Between the stent, there is greater than 72% stenosis confirmed by intravascular ultrasound. PTCA STENT OF THE RIGHT CORONARY ARTERY: The stent used was 4.0 x 15 mm Integrity. Result was 0% residual stenosis. OVERALL IMPRESSION: Successful percutaneous transluminal coronary angioplasty stent of the right coronary artery going from greater than 72% initial stenosis confirmed by intravascular ultrasound to 0% residual stenosis. TRANSINT:[id number] Voice Confirmation ID: [id number] DOCUMENT ID: [id number] GA LOREDO MD at 1800 CC: [id number] DICTATION DATE: 03/22/17 1232 FUND DEVELOPMENT MANAGER: 03/22/17 1412 DEP CLI 03/22/[address] [address]
--- NOTE | ~2017-03-22 | HEMODYNAMI ---
PATIENT:LUIS BELLO MEDICAL RECORD: [id number] : 37 LOCATION:D.CAT ADMISSION DATE: 03/22/17 Generatedon:03/22/201712:34 Patient name: LUIS BELLO Patient #: [id number] SSN: : 1935 Date of study: 03/22/2017 Page: Of Hemodynamic Procedure Report Patient Data Patient Demographics Procedure consent was obtained First Name: LUIS Gender: Male Last Name: ACE : 1935 [facility] Initial: JAE Age: 81 year(s) Patient #: [id number] Race: Additional ID: [id number] Contact details [address]: [address] [place] [address] State: [place] City: [place] Zip code: [address] Past Medical History Allergies Allergen Reaction Date Comments Reported Other allergy 02/21/2016 wasp venom Bee/Wasp stings 02/25/2016 Other allergy 03/22/2017 WASP VENOM Admission Admission Data Admission Date: 03/22/2017 Admission Time: 8:33 Procedure Procedure Types Cath Procedure Diagnostic Procedure LHC LHC w/Coronaries FFR/IVUS Intra-Coronary IVUS Initial Miscellaneous Procedures Moderate Sedation up to 30 minutes Peripheral Cath Diagnostic Procedure Cath Peripheral Vmbmc-Ptkixjv-Bku-Off Four Vessel Arteriogram Procedure Description Procedure Date Procedure Date: 03/22/2017 Procedure Start Time: 12:06 Procedure End Time: 12:34 Procedure Staff Name Function Reji Ratliff MD Performing Physician Radha Arnold RT Monitor Ronal Corona RT Scrub Chava Ogden RN Nurse Procedure Data Cath Procedure Fluoroscopy Diagnostic fluoroscopy Total fluoroscopy Time: 6.5 time: 6.5 min min Diagnostic fluoroscopy Total fluoroscopy dose: 949 dose: 949 mGy mGy Contrast Material Contrast Material Type Amount (ml) Isovue 300 189 Entry Location Entry Primary Successful Side Size Upsize Upsize Entry Closure Succes sful Closure Location (Fr) 1 (Fr) 2 (Fr) Remarks Device Remarks Femoral Right 5 Fr 6 Fr Exoseal artery Short Estimated blood loss: 10 ml Diagnostic catheters Device Type Used For End Catheter Placement MULTIPACK Pigtail 5 Fr LV Angiography catheter MULTIPACK Pigtail 5 Fr Abdominal catheter aortogram with runoff MULTIPACK 3DRC 5Fr Right Coronary catheter Angiography MULTIPACK 3DRC 5Fr Cervical carotid catheter (common) arteriography MULTIPACK 3DRC 5Fr Vertebral (neck catheter and/or head) arteriography MULTIPACK JL 4.0 5Fr Left Coronary catheter Angiography Procedure Complications No complications Procedure Medications Medication Administration Route Dosage 0.9% NaCl I.V. 100 ml/hr Oxygen NC 2 l/min Heparin Flush Bag added to field 2 bags (1000units/500ml NS) Lidocaine 2% added to field 20 Versed I.V. 1 mg Fentanyl I.V. 50 mcg Heparin Bolus I.V. 4000 units Integrilin (Bolus I.V. 6.8 ml 2mg/ml) Integrilin (Bolus wasted 3.2 ml 2mg/ml) Plavix P.O. 600 mg Hemodynamics Rest Heart Rate: 72 (bpm) Snapshots Pre Cath Intra NCS Post Cath Vital Signs Time Heart Resp SPO2 etCO2 NIBP (mmHg) Rhythm Pain Sedation Rate (ipm) (%) (mmHg) Status Level (bpm) 11:52:47 69 14 100 31.1 154/90(122) NSR 0 (11) 10(A) , No pain 11:57:30 70 18 100 23.5 137/72(94) NSR 0 (11) 10(A) , No pain 12:02:10 72 16 99 10.6 104/58(80) NSR 0 (11) 10(A) , No pain 12:06:43 77 14 98 21.2 95/65(83) NSR 0 (11) 10(A) , No pain 12:11:11 73 13 98 32.6 111/71(91) NSR 0 (11) 9(A) , No pain 12:16:18 77 14 98 33.4 139/77(107) NSR 0 (11) 9(A) , No pain 12:20:53 73 13 99 32.6 133/88(110) NSR 0 (11) 10(A) , No pain 12:25:29 76 13 98 36.4 146/78(109) NSR 0 (11) 10(A) , No pain 12:30:08 73 11 98 32.6 136/81(115) NSR 0 (11) 10(A) , No pain Medications Time Medication Route Dose Verified Delivered Reason Notes Effectiveness by by 11:52:46 0.9% NaCl I.V. 100 Chava Chava Per physician ml/hr Alin Ogden RN RN 11:53:27 Oxygen NC 2 Chava Chava Per physician l/min Alin Ogden RN RN 11:53:46 Heparin Flush added 2 Chava Chava for Bag to bags Alin Ogden anticoagulation (1000units/500ml field RN RN NS) 11:54:02 Lidocaine 2% added 20ml Chava Chava for local to vial Alin Ogden anesthetic field RN RN 12:06:08 Versed I.V. 1 mg Chava Chava for sedation Alin Ogden RN RN 12:06:19 Fentanyl I.V. 50 Chava Chava for sedation mcg Alin Ogden RN RN 12:18:14 Heparin Bolus I.V. 4000 Chava Chava for units Alin Ogden anticoagulation RN RN 12:23:38 Integrilin I.V. 6.8 Chava Chava for (Bolus 2mg/ml) ml Alin Ogden antiplatelet RN RN therapy 12:23:56 Integrilin wasted 3.2ml Chava Chava to sharp's (Bolus 2mg/ml) Alin Ogden RN RN 12:29:33 Plavix P.O. 600 Chava Chava for mg Alin Ogden antiplatelet RN RN therapy Procedure Log Time Note 11:36:34 Ronal Corona RT(R) sent for patient. Start room use. 11:36:35 Time tracking: Regular hours 11:36:39 Plan of Care:Hemodynamics will remain stable., Cardiac rhythm will remain stable., Comfort level will be maintained., Respiratory function will remain adequate., Patient/ family verbilizes understanding of procedure., Procedure tolerated without complication., Recovers from procedure without complications.. 11:43:07 Patient received from Pre/Post Procedure Room to CCL 1 Alert and oriented. Tansferred to table in Supine position. 11:43:08 Warm blankets applied, and good hugger turned on for patient comfort. 11:43:08 Correct patient and procedure confirmed by team. 11:43:10 Signed procedure consent form obtained from patient. 11:43:10 ECG and BP/O2 sat monitors applied to patient. 11:43:11 Full Disclosure recording started 11:43:16 Use device set Femoral Dx 11:43:17 ACIST Syringe (58041) opened to sterile field. 11:43:17 Bag Decanter (2002S) opened to sterile field. 11:43:17 Medline Cath Pack ([id number]) opened to sterile field. 11:43:18 SHEATH 5FR [place] (QZZ733) opened to sterile field. 11:43:19 DIAGNOSTIC WIRE .035 260cm J wire (172243) opened to sterile field. 11:43:20 ACIST Hand Control (48377) opened to sterile field. 11:43:21 ACIST Manifold (91638) opened to sterile field. 11:43:22 DIAGNOSTIC Multipack 5Fr catheter set (ND7425) opened to sterile field. 11:43:22 Tegaderm 4 x 4 (1626W) opened to sterile field. 11:43:23 PERCUTANEOUS ENTRY 19GA needle opened to sterile field. 11:51:54 Vital chart was started 11:51:57 Rhythm: sinus rhythm 11:52:46 0.9% NaCl 100 ml/hr I.V. was administered by Chava Ogden RN; Per physician; 11:53:27 Oxygen 2 l/min NC was administered by Chava Ogden RN; Per physician; 11:53:46 Heparin Flush Bag (1000units/500ml NS) 2 bags added to field was administered by Chava Ogden RN; for anticoagulation; 11:54:02 Lidocaine 2% 20ml vial added to field was administered by Chava Ogden RN; for local anesthetic; 11:56:54 H&P Date Dictated: 03/19/2017 Within 30 days and on chart.. 11:57:21 H&P ON Jivox, BUT UNABLE TO PRINT AT THIS TIME. 11:57:25 Pre-procedure instructions explained to patient. 11:57:26 Pre-op teaching completed and patient verbalized understanding. 11:57:28 Family in waiting room. 11:57:30 Patient NPO since Midnight. 11:57:46 Patient allergic to Other allergyWASP VENOM 11:57:53 Is patient on blood thinner?No 11:57:57 Patient diabetic? No. 11:58:00 Previous problem with sedation/anesthesia? No ? 11:58:01 Snore? Yes 11:58:02 Sleep apnea? No 11:58:03 Deviated septum? No 11:58:04 Opens mouth fully? Yes 11:58:04 Sticks out tongue? Yes 11:58:06 Airway obstruction? No ? 11:58:11 Dentures? No ? 11:58:13 Pre procedure: right dorsailis pedis pulse 2+ Normal; easily identifiable; not easily obliterated 11:58:16 Patient pain scale 0/10 ?. 11:58:22 IV patent on arrival in left hand with 0.9% NaCl at [facility]. 11:58:24 Lab results completed and on chart. 11:58:29 Bilateral groins area was prepped with chlora-prep and draped in sterile fashion 11:58:30 Alarms reviewed by R. N. 11:58:30 Sharps counted by scrub and verified by R.N. 11:59:21 Baseline sample Acquired. 12:01:39 Physician paged 12:04:59 Final Timeout: patient, procedure, and site verified with staff and physician. All members of the team are in agreement. 12:05:01 Right groin site verified by team. 12:05:04 Physical assessment completed. ASA score P 2 - A patient with mild systemic disease as per Reji Ratliff MD. 12:05:08 Sedation plan: IV Moderate Sedation Medication:Versed, Fentanyl 12:06:08 Versed 1 mg I.V. was administered by Chava Ogden RN; for sedation; 12:06:19 Fentanyl 50 mcg I.V. was administered by Chava Ogden RN; for sedation; 12:06:39 Procedure started. 12:06:42 Local anesthetic to right femoral artery with Lidocaine 2% by Reji Ratliff MD.INITIAL ACCESS ONLY 12:07:35 A 5 Fr sheath was inserted into the Right Femoral artery 12:08:30 A MULTIPACK Pigtail 5 Fr catheter was advanced over the wire and used for LV Angiography. 12:09:31 LV gram done using ROMERO 12:09:35 Injector settings: Ml/sec: 10, Volume: 20, 12:09:39 EF : 50 % 12:09:46 A MULTIPACK Pigtail 5 Fr catheter was advanced over the wire and used for Abdominal aortogram with runoff. 12:10:45 Catheter removed. 12:11:40 A MULTIPACK 3DRC 5Fr catheter was advanced over the wire and used for Right Coronary Angiography. 12:12:22 A MULTIPACK 3DRC 5Fr catheter was advanced over the wire and used for Cervical carotid (common) arteriography. 12:13:56 A MULTIPACK 3DRC 5Fr catheter was advanced over the wire and used for Vertebral (neck and/or head) arteriography. 12:13:58 Catheter removed. 12:14:13 A MULTIPACK JL 4.0 5Fr catheter was advanced over the wire and used for Left Coronary Angiography. 12:15:46 Catheter removed. 12:15:52 Use device set TAU PCI 12:15:53 INFLATOR Merit BasixCompak (RT8807) opened to sterile field. 12:15:54 SHEATH 6FR [place] (QIT437) opened to sterile field. 12:16:06 GUIDE 6FR 3DRC catheter (UR89MPW) opened to sterile field. 12:16:18 CHOICE PT Extra Support 182cm wire ([id number]) opened to sterile field. 12:16:32 Sheath upsized to a 6 Fr Short. 12:17:38 6 Fr 3DRC guide catheter was inserted over the wire 12:18:00 CHOICE PT ES wire advanced. 12:18:14 Heparin Bolus 4000 units I.V. was administered by Chava Ogden RN; for anticoagulation; 12:18:58 IVUS catheter advanced over wire. 12:21:22 IVUS pass to RCA lesion performed. 12:21:31 IVUS catheter removed over wire. 12:23:22 Inflation number: 1 A NC EUPHORA 4.0 x 15 balloon ([id number]) was prepped and advanced across the Mid RCA, then inflated to 17 SHEEBA for 0:10 (min:sec). 12:23:33 Inflation number: 2 The NC EUPHORA 4.0 x 15 balloon ([id number]) was reinflated across the Mid RCA, to 17 SHEEBA for 0:07 (min:sec). 12:23:38 Integrilin (Bolus 2mg/ml) 6.8 ml I.V. was administered by Chava Ogden RN; for antiplatelet therapy; 12:23:56 Integrilin (Bolus 2mg/ml) 3.2ml wasted was administered by Chava Ogden RN; to sharp's; 12:24:01 Inflation number: 3 The NC EUPHORA 4.0 x 15 balloon ([id number]) was reinflated across the Mid RCA, to 15 SHEEBA for 0:15 (min:sec). 12:24:13 Inflation number: 4 The NC EUPHORA 4.0 x 15 balloon ([id number]) was reinflated across the Mid RCA, to 17 SHEEBA for 0:09 (min:sec). 12::33 Balloon removed over the wire. 12:26:07 Inflation Number: 5 A INTEGRITY RX 4.0 x 15 stent ([id number]) was prepped and advanced across the Mid RCA. The stent was deployed at 15 SHEEBA for 0:09 (min:sec). 12:26:14 Stent catheter was removed intact over wire. 12:26:21 Wire removed. 12::22 Guide catheter removed. 12::41 Sheath removed intact; hemostasis achieved with Exoseal to the Right Femoral artery. 12:26:44 EXOSEAL 6Fr (EX600) opened to sterile field. 12::48 Procedure ended.(Physican Out) 12::51 Fluoroscopy time 06.50 minutes. 12::54 Flurop Dose total: 949 12::54 Fluoroscopy dose: 949 mGy 12::58 Contrast amount:Isovue 300 189ml. 12:27:00 Sharps counted by scrub and verified by R.N. 12:27:02 Insertion/operative site no bleeding no hematoma. 12:27:05 Post-op/insertion site Right Femoral artery dressed using a 4 x 4 and Tegaderm. 12:27:08 Post right femoral artery:stable, clean and dry 12::18 Post Procedure Pulses reassessed and unchanged 12:: Post-procedure physical assessment completed. ASA score P 2 - A patient with mild systemic disease as per Reji Ratliff MD. 12:29:24 Post procedure rhythm: unchanged. :: Estimated blood loss: 10 ml :: Post procedure instruction explained to patient.Patient verbalizes understanding. 12:: Patient needs reinforcement of post procedure teaching. ::33 Plavix 600 mg P.O. was administered by Chava Ogden RN; for antiplatelet therapy; :: Procedure type changed to Cath procedure, Diagnostic procedure, LHC, [facility] w/Coronaries, FFR/IVUS, Intra-Coronary IVUS Initial, Miscellaneous Procedures, Moderate Sedation up to 30 minutes, Peripheral Cath Diagnostic Procedure, Cath Peripheral, Wetmw-Kzsqzfh-Mlk-Off, Four Vessel Arteriogram 12:29:46 Procedure Complication : No complications 12:29:49 See physician's report for complete and final results. 12:30:31 [place] IVUS Catheter (85222G) opened to sterile field. 12:30:53 Procedure and supply charges have been captured, reviewed, submitted and are correct. 12:34:21 Vital chart was stopped 12:34:23 Report given to Pre/Post Procedure Room. 12:34:27 Patient transfered to Pre/Post Procedure Room with Stretcher. 12:34:36 Procedure ended. 12:34:36 Full Disclosure recording stopped 12:34:40 End room use (Document Last) Intervention Summary Intervention Notes Time ActionType Lesion and Equipment Action# Pressure Duration Attributes Used 12:23:22 Inflate Mid RCA NC EUPHORA 1 17 00:10 balloon 4.0 x 15 balloon ([id number]) 12:23:33 Reinflate Mid RCA NC EUPHORA 2 17 00:07 balloon 4.0 x 15 balloon ([id number]) 12:24:01 Reinflate Mid RCA NC EUPHORA 3 15 00:15 balloon 4.0 x 15 balloon ([id number]) 12:24:13 Reinflate Mid RCA NC EUPHORA 4 17 00:09 balloon 4.0 x 15 balloon ([id number]) 12:26:07 Place stent Mid RCA INTEGRITY RX 5 15 00:09 4.0 x 15 stent ([id number]) Device Usage Item Name Manufacture Quantity Catalog Number Hospital Part Current Mini [facility] Lot# / Charge Number Stock Stock Serial# Code ACIST Acist 1 48544 802743 773920 967381 20 Syringe Medical (84701) Systems Inc Bag Decanter Microtek 1 120222 01960 020434 5 () Medical Inc. Medline Cath Cardinal 1 [id number] 536072 11851 096890 5 Pack Health ([id number]) SHEATH 5FR Terumo 1 QFA436 952634 149947 724450 40 [place] (HJG731) DIAGNOSTIC [facility] [place] 1 962591 941423 179873 987132 30 WIRE .035 260cm J wire (252508) ACIST Hand Acist 1 16295 430668 110212 686028 5 Control Medical (72101) Systems Inc ACIST Acist 1 93354 260605 811731 106653 5 Manifold Medical (32603) Systems Inc DIAGNOSTIC Cardinal 1 AY4292 973946 40110 752573 30 Multipack Health 5Fr catheter set (OC5364) Tegaderm 4 x 3M 1 1626W 873592 578937 249534 5 4 (1626W) PERCUTANEOUS Cook [facility] 1 J31794 246347 654238 5 ENTRY 19GA needle MULTIPACK Cardinal 1 023637 5 Pigtail 5 Fr Health catheter MULTIPACK Cardinal 1 010543 5 3DRC 5Fr Health catheter MULTIPACK JL Cardinal 1 263388 5 4.0 5Fr Health catheter INFLATOR [place] 1 MW2486 772709 669720 223453 15 Insightra Medical BasixCompak (WO3333) SHEATH 6FR Terumo 1 BJS636 816690 905688 900791 40 [place] (RVH658) GUIDE 6FR Medtronic 1 [id number] 259974 637403 970713 1 3DRC catheter (FK70ILT) CHOICE PT [place] 1 [id number] 227703 647426 129685 5 Extra Scientific Support 182cm wire ([id number]) NC EUPHORA Medtronic 1 [id number] 054955 060127 034242 1 [id number] 4.0 x 15 balloon ([id number]) INTEGRITY RX Medtronic 1 [id number] 264205 463451 908179 5 [id number] 4.0 x 15 stent ([id number]) EXOSEAL 6Fr Cardinal 1 EX600 618112 954285 971643 10 (EX600) [place] Cloudwareo [place] 1 17085K 773742 045693 021802 8 [place] IVUS Catheter (88874A) Signature Audit Emerson Stage Time Signature Unsigned Intra-Procedure 03/22/2017 Radha 12:34:50 PM Counts RT(R) Signatures Monitor : Radha Signature : Counts RT Date : Time : [place] [address] [place] [address]
--- NOTE | ~2017-03-22 | OP ---
PATIENT NAME: LUIS BELLO MEDICAL RECORD: [id number] :37 LOCATION:D.CAT ADMISSION DATE: SURGEON: GA LOREDO MD DATE OF OPERATION: 03/22/2017 PROCEDURE: 1. Aortofemoral runoff. 2. Abdominal aortography. INDICATION: Leg pain compatible with claudication. PROCEDURE IN DETAIL: After informed consent was obtained and after a detailed explanation of the risks, benefits as well as alternative therapies, the patient elected to proceed with angiogram. The right femoral area had a preexisting sheath. All catheters exchanged through this sheath. FINDINGS: Abdominal aortography was performed. The catheter was pulled down for aortofemoral runoff. Abdominal aortography reveals no significant known aortic disease. No dissection or aneurysm formation. RIGHT LEG: A. Iliac: The common internal and external iliacs have moderate irregularities, but no flow-limiting stenosis. B. Femoral system: The common superficial and deep femoral have moderate irregularities, but no flow-limiting stenosis. C. Popliteal and infrapopliteal vessels have mild irregularities, preserved 3-vessel runoff to the foot. LEFT LEG: A. Iliac: The common internal and external iliacs have moderate irregularities, but no flow-limiting stenosis. B. Femoral system: The common superficial and deep femoral have moderate irregularities, but no flow-limiting stenosis. C. Popliteal and infrapopliteal vessels have mild irregularities, preserved 3-vessel runoff to the foot. OVERALL IMPRESSION: Minimal peripheral vascular disease is present. No flow limiting stenosis, leg pain is non-arterial vascular in etiology. TRANSINT:[id number] Voice Confirmation ID: [id number] DOCUMENT ID: [id number] GA LOREDO MD at 1800 CC: [id number] DICTATION DATE: 03/22/17 1232 ROLL SCALE MAN: 03/22/17 1413 DEP CLI 03/22/17 [place] [id number] [place] [address]
--- NOTE | ~2017-03-22 | OP ---
PATIENT NAME: LUIS BELLO MEDICAL RECORD: [id number] :37 LOCATION:D.CAT ADMISSION DATE: SURGEON: GA LOREDO MD DATE OF OPERATION: 03/22/2017 PROCEDURE: Four-vessel carotid and vertebral angiography. INDICATION: Dizziness, syncope, carotid vascular disease. PROCEDURE IN DETAIL: After informed consent was obtained and after detailed explanation of risks, benefits as well as alternative therapies, the patient elected to proceed with angiogram. The right femoral area had a preexisting sheath. All catheters exchanged through this sheath. FINDINGS: There was subselection of each subclavian as well as the left carotid. RIGHT SIDE: Common carotid is devoid of disease. The internal carotid has 50% to 70% stenosis just after the bifurcation. External carotid has no greater than 30% stenosis at the ostium. The vertebral arteries devoid of disease. LEFT SYSTEM: The common carotid has mild plaquing, but no flow-limiting stenosis. The internal carotid has 30% to 50% stenosis just after the bifurcation. The external carotid has mild plaquing. Vertebral artery has mild plaquing. OVERALL IMPRESSION: Moderate carotid vascular disease is present, 50% to 70% stenosis on the right, 30% to 50% stenosis on the left. TRANSINT:[id number] Voice Confirmation ID: [id number] DOCUMENT ID: [id number] GA LOREDO MD at 1800 CC: [id number] DICTATION DATE: 03/22/17 1232 BACK FEEDER PLYWOOD LAYUP LINE: 03/22/17 1412 DEP CLI 03/22/17 [place] [id number]
[~2017-03-22 08:33] MED LIST changes: -PROSCAR5 MG PO
[2017-03-22 09:24] VITALS: BP 166/71; Ht 177.8 cm; Wt 74.1 kg
[2017-03-22] MEDS ORDERED: HYZAAR 50-12.51 TAB PO (09:32)
[2017-03-22] MEDS ORDERED: PROSCAR5 MG PO (09:33)
[2017-03-22 09:43] LABS: BASOPHILS 0.3 % (0-2); EOSINOPHILS 3.2 % (0-7); HEMATOCRIT 48.6 % (42.0-54.0); HEMOGLOBIN 16.4 g/dL (13.5-17.5); IMMATURE GRANULOCYTES 0.2 % (0-5); LYMPHOCYTES 26.4 % (15-50); MCH 30.9 pg (26.0-34.0); MCHC 33.7 g/dL (31.0-37.0); MCV 91.7 fL (80.0-100.0); MEAN PLATELET VOLUME 10.1 fL (7.4-10.4); MONOCYTES 6.1 % (2-11); NEUTROPHILS 63.8 % (40-80); RDW 13.9 % (11.5-14.5); WBC 13.1 10x3/uL (4.8-10.8)
[2017-03-22 09:44] LABS: PLATELET COUNT 265 10x3/uL (130-400)
[2017-03-22 10:05] LABS: ANION GAP 14.7 mmol/L (8-16); CALCIUM 9.7 mg/dL (8.5-10.1); CREATININE - SERUM 1.3 mg/dL (0.6-1.3); POTASSIUM - SERUM 3.7 mmol/L (3.5-5.1)
[2017-03-22] MEDS ORDERED: PLAVIX75 MG PO (12:41)
== END 2017-03-22 16:43 | disposition home or self-care (01) ==
LOC: D.CATH 08:33
PROVIDERS: Internal Medicine Interventional Cardiology
DX: I25.119 Atherosclerotic heart disease of native coronary artery with unspecified angina pectoris (principal); I65.23 Occlusion and stenosis of bilateral carotid arteries; M79.606 Pain in leg, unspecified; I70.209 Unspecified atherosclerosis of native arteries of extremities, unspecified extremity; Z01.812 Encounter for preprocedural laboratory examination

== ENCOUNTER → 2017-09-28 09:12 | Outpatient (CLI) | payer MEDICARE, BC ==
[2017-03-22 09:24] VITALS: BMI 23.4
[~2017-09-28 09:12] MED LIST changes: +PROSCAR5 MG PO
== END | disposition home or self-care (01) ==
LOC: D.CT 09:12
DX: C61 Malignant neoplasm of prostate (principal)

== ENCOUNTER 2017-10-12 08:25 | Outpatient (CLI) | payer MEDICARE, BC ==
[~2017-10-12] VITALS: Ht 177.8 cm; Wt 75.5 kg
[2017-10-12 08:51] LABS: BASOPHILS 0.4 % (0-2); EOSINOPHILS 5.4 % (0-7); HEMATOCRIT 45.1 % (42.0-54.0); HEMOGLOBIN 15.4 g/dL (13.5-17.5); IMMATURE GRANULOCYTES 0.2 % (0-5); LYMPHOCYTES 31.1 % (15-50); MCH 30.9 pg (26.0-34.0); MCHC 34.1 g/dL (31.0-37.0); MCV 90.6 fL (80.0-100.0); MONOCYTES 6.8 % (2-11); NEUTROPHILS 56.1 % (40-80); PLATELET COUNT 215 10x3/uL (130-400); RBC 4.98 10x6/uL (4.20-6.10); RDW 13.7 % (11.5-14.5); WBC 10.5 10x3/uL (4.8-10.8)
[2017-10-12 08:53] LABS: ANION GAP 10.8 mmol/L (8-16); CALCIUM 8.7 mg/dL (8.5-10.1); CARBON DIOXIDE 28.1 mmol/L (21.0-32.0); CREATININE - SERUM 1.3 mg/dL (0.6-1.3); POTASSIUM - SERUM 3.9 mmol/L (3.5-5.1)
[2017-10-12 09:10] LABS: APTT 26.1 SECONDS (22.8-39.4); INR 0.98 (0.85-1.17); PROTIME 12.4 SECONDS (11.6-15.0)
[2017-10-12 10:23] VITALS: BP 164/68; Ht 177.8 cm; Wt 75.5 kg
== END 2017-10-12 15:20 | disposition home or self-care (01) ==
LOC: D.SP 08:25
PROVIDERS: Radiology Vascular & Interventional Radiology
DX: C34.12 Malignant neoplasm of upper lobe, left bronchus or lung (principal); J44.9 Chronic obstructive pulmonary disease, unspecified; I25.10 Atherosclerotic heart disease of native coronary artery without angina pectoris; Z86.73 Personal history of transient ischemic attack (TIA), and cerebral infarction without residual deficits; Z85.46 Personal history of malignant neoplasm of prostate; Z85.6 Personal history of leukemia; Z95.5 Presence of coronary angioplasty implant and graft; Z01.812 Encounter for preprocedural laboratory examination

== ENCOUNTER → 2018-02-09 10:44 | Outpatient (CLI) | payer MEDICARE, BC ==
[2017-10-12 10:23] VITALS: BMI 23.8
== END | disposition home or self-care (01) ==
LOC: D.CT 10:44
DX: D72.829 Elevated white blood cell count, unspecified (principal); C61 Malignant neoplasm of prostate; C34.12 Malignant neoplasm of upper lobe, left bronchus or lung

== ENCOUNTER → 2018-09-27 09:02 | Outpatient (CLI) | payer MEDICARE, BC ==
[2017-10-12 10:23] VITALS: BMI 23.8
--- NOTE | ~2018-09-27 | ST ---
PATIENT:LUIS BELLO MEDICAL RECORD: [id number] SEX: M LOCATION:[facility] ORDER #: ADMISSION DATE: 09/27/18 AGE OF PATIENT: 83 REFERRING PHYSICIAN: INTERPRETING PHYSICIAN: GA LOREDO MD DATE OF SERVICE: 09/27/2018 PROCEDURE: Nuclear stress test. INDICATION: Angina and coronary artery disease, shortness of breath, hypertension, and hyperlipidemia. He was exercised on standard Lexiscan protocol with 33 mCi of sestamibi injected at peak stress, 11 mCi used previously for rest images. FINDINGS: Gated SPECT reveals preserved ejection fraction at 58% with decreased wall motion thickening and brightening throughout the inferior segments. SPECT imaging Cardiolite was used as myocardial perfusion agent. There is a fixed perfusion defect inferiorly. This includes the basal, mid, apical inferior segments; however, there is reversible ischemia laterally. This includes the basal, mid, apical lateral segments as well as the apex itself. The degree of reversibility is moderate. The amount of myocardial involved between 2 defects is large. OVERALL IMPRESSION: This is an intermediate to high risk nuclear stress test showing a fixed perfusion defect inferiorly, reversible ischemia apically, and laterally suggestive of multivessel coronary artery disease. We will proceed with coronary angiography as followup study. TRANSINT:[id number] Voice Confirmation ID: [id number] DOCUMENT ID: [id number] GA LOREDO MD CC: [id number] DICTATION DATE: 09/28/18 1351 MANAGER CONTACT: 09/28/18 2336 DEP CLI 09/27/18 [facility] [address] [id number]
== END | disposition home or self-care (01) ==
LOC: D.HCCARDIO 09:02
PROVIDERS: ATTEND Internal Medicine Interventional Cardiology
DX: I25.110 Atherosclerotic heart disease of native coronary artery with unstable angina pectoris (principal); R06.02 Shortness of breath; I10 Essential (primary) hypertension; E78.5 Hyperlipidemia, unspecified

== ENCOUNTER 2018-10-10 08:56 | Outpatient (CLI) | payer MEDICARE, BC ==
[~2018-10-10] VITALS: Ht 175.3 cm; Wt 72.7 kg
--- NOTE | ~2018-10-10 | HEMODYNAMI ---
PATIENT:LUIS BELLO MEDICAL RECORD: [id number] : 37 LOCATION:D.CAT ADMISSION DATE: 10/10/18 Generatedon:10/10/201812:46 Patient name: LUIS BELLO Patient #: [id number] SSN: : 1935 Date of study: 10/10/2018 Page: Of Hemodynamic Procedure Report Patient Data Patient Demographics Procedure consent was obtained First Name: LUIS Gender: Male Last Name: ACE : 1935 [facility] Initial: JAE Age: 83 year(s) Patient #: [id number] Race: Additional ID: [id number] Contact details Address: [facility] [address] State: [place] City: [place] Zip code: [address] Past Medical History Allergies Allergen Reaction Date Comments Reported Other allergy 02/21/2016 wasp venom Bee/Wasp stings 02/25/2016 Other allergy 03/22/2017 WASP VENOM Other allergy 10/10/2018 sotalol, propafenone, wasp venom Admission Admission Data Admission Date: 10/10/2018 Admission Time: 8:56 Arrival Date: 10/10/2018 Arrival Time: 11:00 Admit Source: Other Insurance Payor: Medicare Height (in.): 69 BSA: 1.91 (m2) Height (cm.): 175.26 BMI: 24.51 (kg/m2) Weight (lbs.): 166 Weight (kg.): 75.3 Lab Results Lab Result Date: 10/10/2018 Lab Result Time: 0:00 Biochemistry Name Units Result Min Max BUN mg/dl 22 --(----)-* 7 18 Creatinine mg/dl 1.3 --(---*)-- 0.6 1.3 CBC Name Units Result Min Max Hemoglobin g/dl 15.8 --(--*-)-- 13.5 17.5 Procedure Procedure Types Cath Procedure Diagnostic Procedure LHC LHC w/Coronaries Sedation Charges Moderate Sedation up to 15 minutes PCI Procedure Coronary Stent Coronary Stent Initial Procedure Description Procedure Date Procedure Date: 10/10/2018 Procedure Start Time: 12:27 Procedure End Time: 12:42 Procedure Staff Name Function Reji Ratliff MD Performing Physician Rajni Weaver RT Monitor Marlen Aviles RT Scrub Aime Dejesus RT Scrub Chava Ogden RN Nurse Indication CAD Procedure Data Cath Procedure Fluoroscopy Diagnostic fluoroscopy Total fluoroscopy Time: 3 time: 3 min min Diagnostic fluoroscopy Total fluoroscopy dose: 725 dose: 725 mGy mGy Contrast Material Contrast Material Type Amount (ml) Isovue 300 81 Entry Location Entry Primary Successful Side Size Upsize Upsize Entry Closure Aguayo ccessful Closure Location (Fr) 1 (Fr) 2 (Fr) Remarks Device Remarks Radial Right 6 Fr Mechanical artery Short Compression Estimated blood loss: 5 ml Diagnostic catheters Device Type Used For End Catheter Placement DIAGNOSTIC [place] 110cm 5 Multi-vessel Fr catheter ([id number]) Angiography Procedure Complications No complications Procedure Medications Medication Administration Route Dosage 0.9% NaCl I.V. 100 ml/hr Oxygen NRB 2 l/min Heparin Flush Bag added to field 2 bags (1000units/500ml NS) Lidocaine 2% added to field 20 Versed I.V. 1 mg Fentanyl I.V. 50 mcg Radial Cocktail added to field 1 syringe (Verapamil 2mg/Nitro 400mcg/Heparin 1500units) Radial Cocktail I.A. 1 syringe (Verapamil 2mg/Nitro 400mcg/Heparin 1500units) Versed I.V. 1 mg Fentanyl I.V. 50 mcg Heparin Bolus I.V. 4000 units Integrilin (Bolus I.V. 6.8 ml 2mg/ml) Integrilin (Bolus wasted 3.2 ml 2mg/ml) Plavix P.O. 600 mg Hemodynamics Rest BSA: 1.91 (m2) HGB: 15.8 (g/dl) O2 Consumption: Estimated: 209.18 (ml/min) O2 Co nsumption indexed: Estimated:109.52 (ml/min/m) Heart Rate: 58 (bpm) Pressure Samples Time Site Value (mmHg) Purpose Heart Use Rate(bpm) 12:30 LV 44/20,33 Snapshot 64 Snapshots Pre Cath Intra NCS Post Cath Vital Signs Time Heart Resp SPO2 etCO2 NIBP (mmHg) Rhythm Pain Sedation Rate (ipm) (%) (mmHg) Status Level (bpm) 12:15:32 57 11 99 30.7 168/79(105) NSR 0 (11) 10(A) , No pain 12:19:22 62 15 100 38.2 111/75(92) NSR 0 (11) 10(A) , No pain 12:24:02 62 11 98 12 128/62(91) NSR 0 (11) 10(A) , No pain 12:27:50 57 19 98 19.5 117/69(99) NSR 0 (11) 10(A) , No pain 12:31:43 67 11 96 17.2 99/49(75) NSR 0 (11) 9(A) , No pain 12:36:01 66 12 94 21.7 104/55(80) NSR 0 (11) 9(A) , No pain 12:39:44 67 19 96 30 101/68(86) NSR 0 (11) 10(A) , No pain Medications Time Medication Route Dose Verified Delivered Reason Note s Effectiveness by by 12:13:54 0.9% NaCl I.V. 100 Chava Chava Per physician ml/hr Alin Ogden RN RN 12:14:02 Oxygen NRB 2 l/min Chava Chava for low 02 sats Alin Ogden RN RN 12:14:12 Heparin Flush added 2 bags Chava Chava used for Bag to Lorigan Alin procedure (1000units/500ml [facility] RN RN NS) 12:14:22 Lidocaine 2% added 20ml Chava Chava for local to vial Lorigan Lorigan anesthetic RN RN 12:20:36 Versed I.V. 1 mg Chava Chava for sedation Alin Ogden RN RN 12:20:45 Fentanyl I.V. 50 mcg Chava Chava for sedation Alin Ogden RN RN 12:21:27 Radial Cocktail added 1 Chava Chava used for (Verapamil to syringe Lorigan Lorigan procedure 2mg/Nitro field STOREY RN 400mcg/Heparin 1500units) 12:29:56 Radial Cocktail I.A. 1 Chava Reji for (Verapamil syringe Lorigan Tauth MD vasodilation 2mg/Nitro RN 400mcg/Heparin 1500units) 12:30:05 Versed I.V. 1 mg Chava Chava for sedation Alin Ogden RN RN 12:30:11 Fentanyl I.V. 50 mcg Chava Chava for sedation Alin Ogden RN RN 12:35:36 Heparin Bolus I.V. 4000 Chava Chava for units Alin Ogden anticoagulation RN RN 12:36:07 Integrilin I.V. 6.8 ml Chava Chava for (Bolus 2mg/ml) Alin Ogden antiplatelet RN RN therapy 12:36:31 Integrilin wasted 3.2 ml Hcava Chava to sharp's (Bolus 2mg/ml) Alin Ogden RN, RN 12:40:15 Plavix P.O. 600 mg Chava Chava for Alin Ogden antiplatelet RN RN therapy Procedure Log Time Note 11:50:21 Chava Ogden RN sent for patient. Start room use. 11:59:05 Diagnostic Cath Status : Elective 11:59:31 Indication : CAD 11:59:50 ACC Patient presents with Non-STEMI CCS Anginal Class 3--Marked limitation of physical activity, angina occurs with ordinary activity.. 11:59:57 Procedure Status Elective Heart Cath (OP). 12:00:24 Patient Height : 69 inches 12:00:26 Patient Weight : 166 lbs 12:00:28 Admit Source: Other 12:00:35 Arrival Date: 10/10/2018 11:00:00 AM 12:00:57 Insurance Payor : Medicare 12:05:29 Lab Result : BUN 22 mg/dl 12:05:29 Lab Result : Creatinine 1.3 mg/dl 12:05:29 Lab Result : Hemoglobin 15.8 g/dl 12:06:33 Time tracking: Regular hours (M-F 7:00 - 5:00) 12:06:40 Plan of Care:Hemodynamics will remain stable., Cardiac rhythm will remain stable., Comfort level will be maintained., Respiratory function will remain adequate., Patient/ family verbilizes understanding of procedure., Procedure tolerated without complication., Recovers from procedure without complications.. 12:06:45 Patient received from Pre/Post Procedure Room to CCL 2 Alert and oriented. Tansferred to table in Supine position. 12:06:46 Warm blankets applied, and good hugger turned on for patient comfort. 12:06:48 Signed procedure consent form obtained from patient. 12:06:49 Correct patient and procedure confirmed by team. 12:06:50 ECG and BP/O2 sat monitors applied to patient. 12:13:54 0.9% NaCl 100 ml/hr I.V. was administered by Chava Ogden RN; Per physician; 12:14:02 Oxygen 2 l/min NRB was administered by Chava Ogden RN; for low 02 sats; 12:14:12 Heparin Flush Bag (1000units/500ml NS) 2 bags added to field was administered by Chava Ogden RN; used for procedure; 12:14:22 Lidocaine 2% 20ml vial added to field was administered by Chava Ogden RN; for local anesthetic; 12:14:26 Vital chart was started 12:18:05 Baseline sample Acquired. 12:18:11 Rhythm: sinus rhythm 12:18:16 H&P Date Dictated: 10/10/2018 Within 30 days and on chart., H&P Addendum completed by physician on day of procedure. (MUST COMPLETE FOR ALL OUTPATIENTS). 12:18:18 Pre-procedure instructions explained to patient. 12:18:18 Pre-op teaching completed and patient verbalized understanding. 12:18:20 Family in patients room. 12:18:21 Patient NPO since Midnight. 12:18:34 Is the patient allergic to Iodine/contrast media? No. 12:18:36 Was the patient premedicated? No 12:18:37 Is patient on blood thinner?Yes 12:18:57 garth 10/07/2018 12:18:59 Patient diabetic? No. 12:19:01 Previous problem with sedation/anesthesia? No ? 12:19:05 Snore? No 12:19:06 Sleep apnea? No 12:19:07 Deviated septum? No 12:19:08 Opens mouth fully? Yes 12:19:09 Sticks out tongue? Yes 12:19:14 Airway obstruction? Yes copd 12:19:17 Dentures? No ? 12:19:20 Pre procedure: right dorsailis pedis pulse 2+ Normal; easily identifiable; not easily obliterated 12:19:22 Pre procedure: left dorsailis pedis pulse 2+ Normal; easily identifiable; not easily obliterated 12:19:25 Patient pain scale 0/10 ?. 12:19:30 IV patent on arrival in left forearm with 0.9% NaCl at [facility]. 12:19:32 Lab results completed and on chart. 12:19:38 Right Radial & Right Groin area was prepped with chlora-prep and draped in sterile fashion 12:19:39 Alarms reviewed by R. N. 12:19:40 Sharps counted by scrub and verified by R.N. 12:19:41 Physician arrived 12::41 --------ALL STOP TIME OUT------ 12:19:41 Final Timeout: patient, procedure, and site verified with staff and physician. All members of the team are in agreement. 12:19:43 Right Radial & Right Groin site verified by team. 12:19:47 Fire Safety Assessment: A--An alcohol-based skin anteseptic being used preoperatively., C--Open oxygen or nitrous oxide is being used., D--An ESU, laser, or fiber-optic light is being used. 12:19:49 Physical assessment completed. ASA score P 2 - A patient with mild systemic disease as per Reji Ratliff MD. 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 12:20:02 Maximum allowable contrast dose (3.7 X eGFR X 0.75)155 ml. 12:20:06 Sedation plan: IV Moderate Sedation Medication:Versed, Fentanyl 12:20:12 Use device set Radial Dx or PCI 12:20:14 ACIST Syringe (07045) opened to sterile field. 12:20:14 Medline Cath Pack ([id number]) opened to sterile field. 12:20:15 Bag Decanter (2002) opened to sterile field. 12:20:15 ACIST Hand Control (52492) opened to sterile field. 12:20:16 ACIST Manifold (31296) opened to sterile field. 12:20:17 Tegaderm 4 x 4 (1626W) opened to sterile field. 12:20:17 MBrace Wrist Support ([id number]) opened to sterile field. 12:20:18 SHEATH 6FR RAIN (1540574) opened to sterile field. 12:20:19 EMERALD Guide Wire (169-556) opened to sterile field. 12:20:36 Versed 1 mg I.V. was administered by Chava Ogden RN; for sedation; 12:20:41 ACCPatient has been prescribed/administered the following anti-anginal medication within the last 2 weeks: ARB 12:20:45 Fentanyl 50 mcg I.V. was administered by Chava Ogden RN; for sedation; 12:: Radial Cocktail (Verapamil 2mg/Nitro 400mcg/Heparin 1500units) 1 syringe added to field was administered by Chava Ogden RN; used for procedure; 12::41 Patient allergic to Other allergysotalol, propafenone, wasp venom 12::11 Zero performed for pressure channel P1 12::39 Procedure started. 12::39 Full Disclosure recording started 12::44 Local anesthetic to right radial artery with Lidocaine 2% by Reji Ratliff MD.INITIAL ACCESS ONLY 12:27:55 A 6 Fr Short sheath was inserted into the Right Radial artery 12:29:08 A DIAGNOSTIC [place] 110cm 5 Fr catheter (952040) was advanced over the wire and used for Multi-vessel Angiography. 12:29:56 Radial Cocktail (Verapamil 2mg/Nitro 400mcg/Heparin 1500units) 1 syringe I.A. was administered by Reji Ratliff MD; for vasodilation; 12:30:05 Versed 1 mg I.V. was administered by Chava Ogden RN; for sedation; 12:30:11 Fentanyl 50 mcg I.V. was administered by Chava Ogden RN; for sedation; 12:30:28 LV hemodynamics recorded. 12:30:29 LV gram done using ROMERO 12:30:31 Injector settings: Ml/sec: 5, Volume: 15, 12:30:37 EF : 60 % 12:30:49 LCA angiography performed. 12:32:06 Injector settings: Ml/sec: 3, Volume: 6, 12:33:02 RCA angiography performed. 12:33:05 Injector settings: Ml/sec: 3, Volume: 6, 12:33:13 Catheter removed. 12:33:14 Proceeding to intervention. 12:33:15 ACCDominant side:Co-Dominant 12:33:15 Pre PCI Site: [place] mRCA has 80% stenosis. 12:33:15 ACC Pre-intervention GABRIEL Flow is 3. 12:35:05 INFLATOR Merit BasixCompak (JG3102) opened to sterile field. 12:35:05 GUIDE 6FR AR 1.0 catheter (OI2AV52) opened to sterile field. 12:35:12 CHOICE PT Extra Support 182cm wire ([id number]) opened to sterile field. 12:35:36 Heparin Bolus 4000 units I.V. was administered by Chava Ogden RN; for anticoagulation; 12:35:36 6 Fr ar 1 guide catheter was inserted over the wire 12:35:50 choice pt wire advanced. 12:36:07 Integrilin (Bolus 2mg/ml) 6.8 ml I.V. was administered by Chava Ogden RN; for antiplatelet therapy; 12:36:31 Integrilin (Bolus 2mg/ml) 3.2 ml wasted was administered by Chava Ogden RN; to sharp's; 12:37:02 Place stent Inflation Number: 1 A COBRA RX 3.5 X 30 Stent was prepped and advanced across the Mid RCA 85. The stent was deployed at 19 SHEEBA for 0:10 (min:sec) . 12:37:47 Inflation number: 1 The stent balloon was then re-inflated across the Prox RCA to 21 SHEEBA for 0:10 (min:sec) . 12:38:11 Stent catheter was removed intact over wire. 12:38:12 Wire removed. 12:38:12 Guide catheter removed. 12:39:06 ZEPHYR REGULAR TR BAND (589527) opened to sterile field. 12:39:19 Sheath removed intact; hemostasis achieved with Mechanical Compression to the Right Radial artery. 12:39:20 ACC Post-intervention GABRIEL Flow is 3. 12:39:20 Post PCI Site: [place] mRCA has 0% stenosis. 12:39:21 Procedure ended.(Physican Out) 12:40:15 Plavix 600 mg P.O. was administered by Chava Ogden RN; for antiplatelet therapy; 12:40:29 Fluoroscopy time 03.00 minutes. 12:40:34 Flurop Dose total: 725 12:40:34 Fluoroscopy dose: 725 mGy 12:40:40 Dose Area Product 50209 mGy/cm. 12:40:45 Contrast amount:Isovue 300 81ml. 12:40:47 Sharps counted by scrub and verified by R.N. 12:41:20 zephry band in inflated with 10 cc of air 12:41:23 Insertion/operative site no bleeding no hematoma. 12:41:27 Post right radial artery:stable 12:41:28 Post Procedure Pulses reassessed and unchanged 12:41:31 Post procedure rhythm: unchanged. 12:41:37 Estimated blood loss: 5 ml 12:41:39 Post procedure instruction explained to patient.Patient verbalizes understanding. 12:41:40 Patient needs reinforcement of post procedure teaching. 12:41:58 Procedure type changed to Cath procedure, Diagnostic procedure, LHC, LHC w/Coronaries, Sedation Charges, Moderate Sedation up to 15 minutes, PCI procedure, Coronary Stent, Coronary Stent Initial 12:41:59 Procedure and supply charges have been captured, reviewed, submitted and are correct. 12:42:03 Procedure Complication : No complications 12:42:05 Vital chart was stopped 12:42:05 See physician's report for complete and final results. 12:42:08 Report given to Pre/Post Procedure Room. 12:42:11 Patient transfered to Pre/Post Procedure Room with Stretcher. 12:42:13 Procedure ended. 12:42:13 Full Disclosure recording stopped 12:42:19 ACC-PCI Only Patient was given prescriptions, or instructed by Reji Ratliff MD to start/continue the following medications upon discharge: Plavix 12:42:20 End room use (Document Last) Intervention Summary Intervention Notes Time ActionType Lesion and Equipment Action# Pressure Duration Attributes Used 12:37:02 Place stent Mid RCA COBRA RX 1 19 00:10 3.5 X 30 Stent 12:37:47 Reinflate Prox RCA COBRA RX 1 21 00:10 stent 3.5 X 30 balloon Stent Device Usage Item Name Manufacture Quantity Catalog Number Hospital Part Current Minimal Lot# / Charge Number Stock Stock Serial# Code ACIST Syringe Acist 1 31158 250282 338149 410810 20 (50629) Medical Systems Inc Medline Cath Medline 1 [id number] 983286 47058 148946 5 Pack ([id number]) Bag Decanter Microtek 1 2001S 508786 05497 985849 5 () Medical Inc. ACIST Hand Acist 1 56458 379389 617723 780358 5 Control Medical (07794) Systems Inc ACIST Manifold Acist 1 05594 412347 184925 072635 5 (77568) Medical Systems Inc Tegaderm 4 x 4 3M 1 1626W 835564 679070 022359 5 (1626W) MBrace Wrist Advanced 1 140-0250-00 453636 30439 397222 5 Support Vascular ([id number]) Dynamics SHEATH 6FR Cardinal 1 8362483 306789 7944281 954395 5 RAIN (6059172) Health EMERALD Guide Cardinal 1 502-455 121425 616635 466377 5 Wire (502455) Health DIAGNOSTIC Terumo 1 40-4013 048253 479851 948675 5 [place] 110cm 5 Fr catheter (578004) INFLATOR Merit Merit 1 PC8200 328131 142396 877507 15 BasixCompak Medical (FQ2529) GUIDE 6FR AR Medtronic 1 [id number] 758704 48197 236279 1 1.0 catheter ([id number]) CHOICE PT [place] 1 [id number] 276461 777397 453021 5 Extra Support Scientific 182cm wire ([id number]) COBRA RX 3.5 X Celonova 1 [id number] 307747 [id number] 2201648 0 [id number] 30 stent Biosciences (303-11-59637) ZEPHYR REGULAR Cardinal 1 819841 043281 2984291 817947 5 TR BAND Your Last Chance (188791) Signature Audit [place] Stage Time Signature Unsigned Intra-Procedure 10/10/2018 Rajni Weaver 12:46:25 PM RT(R) Signatures Performing Physician : Signature : Reji Ratliff MD Date : Time : Monitor : Rajni Weaver RT Signature : Date : Time : Nurse : Chava Ogden Signature : RN Date : Time : [facility] [address] [place] [address]
[2018-10-10 09:19] VITALS: BP 111/72; Ht 175.3 cm; Wt 72.7 kg
[2018-10-10] MEDS ORDERED: ULTRAM50 MG PO (09:20)
[2018-10-10] MEDS ORDERED: BAYER CHEWABLE81 MG PO (09:20)
[2018-10-10] MEDS ORDERED: NEURONTIN 300300 MG PO (09:20)
[2018-10-10] MEDS ORDERED: TRELEGY ELLIPT1 EACH INH (09:23)
[2018-10-10 09:43] LABS: BASOPHILS 0.3 % (0-2); EOSINOPHILS 2.7 % (0-7); HEMOGLOBIN 15.8 g/dL (13.5-17.5); IMMATURE GRANULOCYTES 0.3 % (0-5); MCH 30.7 pg (26.0-34.0); MCHC 34.3 g/dL (31.0-37.0); MCV 89.5 fL (80.0-100.0); MEAN PLATELET VOLUME 9.6 fL (7.4-10.4); MONOCYTES 6.2 % (2-11); NEUTROPHILS 62.5 % (40-80); PLATELET COUNT 215 10x3/uL (130-400); RBC 5.14 10x6/uL (4.20-6.10); RDW 14.6 % (11.5-14.5)
[2018-10-10 09:52] LABS: ANION GAP 14.2 mmol/L (8-16); CALCIUM 9.3 mg/dL (8.5-10.1); CARBON DIOXIDE 27.2 mmol/L (21.0-32.0); CREATININE - SERUM 1.3 mg/dL (0.6-1.3); POTASSIUM - SERUM 4.4 mmol/L (3.5-5.1)
[2018-10-10 09:59] LABS: LDL-HDL RATIO 1.5 ratio (1.5-3.5)
--- NOTE | 2018-10-10 12:50 | NUR ---
PT RECEIVED VIA STRETCHER FROM [employer]. PT AWAKE BUT DROWSY, DENIES PAIN OR DISCOMFORT. ZEPHER BAND AND IMMOBILIZER TO R WRIST, DRESSING CDI NO BLEEDING OR SWELLING NOTED. ARM PINK AND WARM, CAP REFILL BRISK. HR SINUS ALVINA, RATE 58, BP 107/68, O2 SAT 94 ON ROOM AIR, O2 PLACED AT 2L/NC. IV PATENT INFUSING VIA ORDERS. FAMILY AT BEDSIDE, CALL LIGHT IN REACH. DR LOREDO IN ROOM SPOKE WITH PT AND FAMILY REGARDING PLAN OF CARE AND PROCEDURE RESULTS.
[2018-10-10] MEDS ORDERED: PLAVIX75 MG PO (12:55)
--- NOTE | 2018-10-10 13:15 | NUR ---
PT RESTING W EYES CLOSED, VSS. Z BAND AND IMMOBILIZER IN PLACE, NO BLEEDING OR SWELLING NOTED. ARM PINK AND WARM, CAP REFILL REMAINS BRISK. FAMILY AT BEDSIDE, CALL LIGHT IN REACH
--- NOTE | 2018-10-10 14:03 | NUR ---
PT REMAINS RESTING W EYES CLOSED. Z BAND AND IMMOBILIZER IN PLACE, NO BLEEDING OR SWELLING NOTED. PT DENIES PAIN OR NEEDS AT THIS TIME. AT BEDSIDE, CALL LIGHT IN REACH. VSS. IV PATENT INFUSING VIA ORDERS.
--- NOTE | 2018-10-10 14:30 | NUR ---
HOB ELEVATED, SANDWICH TRAY AND JUICE SERVED. PT DENIES PAIN OR DISCOMFORT. Z BAND AND IMMOBILIZER IN PLACE, DRESSING CDI NO BLEEDING OR SWELLING NOTED. ARM PINK AND WARM, CAP REFILL BRISK. HR 70, BP 121/73, O2 SAT 98 ON 2L/NC. CALL LIGHT IN REACH, AT BEDSIDE
--- NOTE | 2018-10-10 15:00 | NUR ---
PT DOING WELL, Z BAND AND IMMOBILIZER IN PLACE. DRESSING CDI NO BLEEDING OR SWELLING NOTED. PT TOLERATED SANDWICH AND DRINK W/O NAUSEA. VSS. CALL LIGHT IN REACH
--- NOTE | 2018-10-10 15:34 | NUR ---
PT RESTING COMFORTABLY. 4CC AIR REMOVED FROM Z BAND, NO BLEEDING NOTED. HR 64, BP 168/74, 02 SAT 96 ON 2L/NC. PT DENIES PAIN OR NEEDS AT THIS TIME.
--- NOTE | 2018-10-10 16:05 | NUR ---
3 ADD'L CC AIR REMOVED FROM Z BAND, NO BLEEDING OR SWELLING NOTED. DISCHARGE INSTRUCTIONS REVIEWED W PT AND , BOTH VERBALIZED UNDERSANDING. INSTRUCTED ON IMPORTANCE OF GETTING PLAVIX PRESCRIPTION FILLED AND BEGINNING IT TOMORROW.
--- NOTE | 2018-10-10 16:31 | NUR ---
IV REMOVED W CATH INTACT, MONITORS AND O2 REMOVED. PT VOIDED 300 CLEAR YELLOW URINE IN URINAL. PT UP TO DRESS FOR DISCHARGE W ASSIST FROM .
--- NOTE | 2018-10-10 16:40 | NUR ---
REMAINING AIR AND Z BAND REMOVED, NO BLEEDING OR HEMATOMA NOTED. 2X2 AND TEGADERM DRESSING APPLIED. PT AMBULATED TO BR W/O DIFFICULITY. 1645 PT AMBULATED W ASSIST TO PRIVATE VEHICLE, HER WANTED TO WALK AND REFUSED WC.
--- NOTE | 2018-10-11 12:04 | OP ---
PATIENT NAME: LUIS BELLO MEDICAL RECORD: [id number] :37 LOCATION:D.CAT ADMISSION DATE: SURGEON: GA LOREDO MD DATE OF OPERATION: 10/10/2018 PROCEDURES: 1. PTCA stent RCA. 2. Left heart catheterization. 3. Selective coronary angiography. 4. Left ventriculogram. INDICATION: Angina and coronary artery disease. PROCEDURE IN DETAIL: After informed consent was obtained and after a detailed description of the risks, benefits as well as alternative therapies, the patient elected to proceed with angiogram and angioplasty. The right radial area was prepped and draped in normal sterile fashion. Right radial artery was cannulated via modified Seldinger technique with placement of 6-Kazakh sheath. All catheters exchanged through the sheath. FINDINGS: Left ventriculogram was performed in standard 30-degree ROMERO view, reveals good cardiac wall motion throughout all segments. Overall ejection fraction estimated at 65%. SELECTIVE CORONARY ANGIOGRAPHY: 1. Left main is with no significant angiographic disease. 2. Left anterior descending has moderate irregularities, but no flow-limiting stenosis. 3. The left circumflex has moderate irregularities, but no flow-limiting stenosis. 4. The right coronary artery has previously placed stent with up to 80% to 85% in-stent restenosis. There is a large PLV branch. This correlates with perfusion defect on nuclear stress testing. PTCA STENT OF THE RCA: The stent used was a 3.5 x 30 mm Cobra. Result was 0% residual stenosis. OVERALL IMPRESSION: Successful percutaneous transluminal coronary angioplasty stent of the right coronary artery going from 80% to 85% initial stenosis to 0% residual. TRANSINT:[id number] Voice Confirmation ID: [id number] DOCUMENT ID: [id number] GA LOREDO MD at 1204 CC: [id number] DICTATION DATE: 10/10/18 1243 SUPERVISOR [place] REPAIR: 10/10/18 1253 DEP CLI 10/10/[address] [address]
== END 2018-10-10 16:45 | disposition home or self-care (01) ==
LOC: D.CATH 08:56
PROVIDERS: ATTEND Internal Medicine Interventional Cardiology
DX: I25.119 Atherosclerotic heart disease of native coronary artery with unspecified angina pectoris (principal); T82.855A Stenosis of coronary artery stent, initial encounter; Z01.812 Encounter for preprocedural laboratory examination

== ENCOUNTER → 2019-09-14 09:39 | Outpatient (CLI) | payer MEDICARE, BC ==
[2018-10-10 09:19] VITALS: BMI 23.6
[~2019-09-14 09:39] MED LIST changes: +NEURONTIN 300300 MG PO; +TRELEGY ELLIPT1 EACH INH; +ULTRAM50 MG PO
== END | disposition home or self-care (01) ==
LOC: D.HCCARDIO 09:39
PROVIDERS: ATTEND Internal Medicine Cardiovascular Disease
DX: I25.10 Atherosclerotic heart disease of native coronary artery without angina pectoris (principal)

== ENCOUNTER 2019-10-04 11:50 | Day surgery (SDC) | payer MEDICARE, BC ==
[~2019-10-04] VITALS: Ht 175.3 cm; Wt 74.1 kg
--- NOTE | ~2019-10-04 | HEMODYNAMI ---
PATIENT:LUIS BELLO MEDICAL RECORD: [id number] : 37 LOCATION:D.CAT ADMISSION DATE: 10/04/19 Generatedon:10/04/201915:13 Patient name: LUIS BELLO Patient #: [id number] SSN: [id number] : 1935 Date of study: 10/04/2019 Page: Of Hemodynamic Procedure Report Patient Data Patient Demographics Procedure consent was obtained First Name: LUIS Gender: Male Last Name: ACE : 1935 [facility] Initial: JAE Age: 84 year(s) Patient #: [id number] Race: SSN: [id number] Additional ID: [id number] Contact details Address: [address] [place] [address] State: [place] City: [place] Zip code: [address] Past Medical History Performed procedures and imaging results Date Procedure Procedure Results Comments 09/14/2019 Stress testing Positive->Intermediate with SPECT MPI risk Allergies Allergen Reaction Date Comments Reported Other allergy 02/21/2016 wasp venom Bee/Wasp stings 02/25/2016 Other allergy 03/22/2017 WASP VENOM Other allergy 10/10/2018 sotalol, propafenone, wasp venom Other allergy 10/04/2019 VENOM-WASP Admission Admission Data Admission Date: 10/04/2019 Admission Time: 11:50 Arrival Date: 10/04/2019 Arrival Time: 0:00 Admit Source: Other Insurance Payor: Medicare [facility] #: [id number] Height (in.): 69 BSA: 1.9 (m2) Height (cm.): 175.26 BMI: 24.12 (kg/m2) Weight (lbs.): 163.34 Weight (kg.): 74.09 Lab Results Lab Result Date: 10/04/2019 Lab Result Time: 0:00 Biochemistry Name Units Result Min Max BUN mg/dl 23 --(----)-* 7 18 Creatinine mg/dl 1.3 --(---*)-- 0.6 1.3 eGFR ml/min 56 *-(----)-- 90 120 NONAFRICAN CBC Name Units Result Min Max Hematocrit % 49.3 --(--*-)-- 42 54 Hemoglobin g/dl 16.5 --(--*-)-- 13.5 17.5 Procedure Procedure Types Cath Procedure Diagnostic Procedure LHC LH w/Coronaries FFR/IVUS FFR Initial Sedation Charges Moderate Sedation up to 30 minutes PCI Procedure Hemochron ACT Test Procedure Description Procedure Date Procedure Date: 10/04/2019 Procedure Start Time: 14:47 Procedure End Time: 15:11 Procedure Staff Name Function Rd Fuentes MD Performing Physician Marlen Aviles RT Monitor Jen Donohue RN Nurse Patsy Figueroa RT Scrub Indication CAD Procedure Data Cath Procedure Fluoroscopy Diagnostic fluoroscopy Total fluoroscopy Time: 2.8 time: 2.8 min min Diagnostic fluoroscopy Total fluoroscopy dose: 429 dose: 429 mGy mGy Contrast Material Contrast Material Type Amount (ml) Isovue 370 64 Entry Location Entry Primary Successful Side Size Upsize Upsize Entry Closure Succes sful Closure Location (Fr) 1 (Fr) 2 (Fr) Remarks Device Remarks Femoral Right 5 Fr Exoseal artery Estimated blood loss: 10 ml Diagnostic catheters Device Type Used For End Catheter Placement MULTIPACK JL 4.0 5Fr Procedure catheter MULTIPACK 3DRC 5Fr Procedure catheter MULTIPACK Pigtail 5 Fr Procedure catheter Procedure Complications No complications Procedure Medications Medication Administration Route Dosage 0.9% NaCl I.V. 100 ml/hr Oxygen etCO2 Nasal cannula 2 l/min Lidocaine 2% added to field 20 Heparin Flush Bag added to field 2 bags (1000units/500ml NS) Versed I.V. 2 mg Fentanyl I.V. 50 mcg Heparin Bolus I.V. 3000 units Hemodynamics Rest BSA: 1.9 (m2) HGB: 16.5 (g/dl) O2 Consumption: Estimated: 221.95 (ml/min) O2 Con sumption indexed: Estimated:116.82 (ml/min/m) Heart Rate: 78 (bpm) Pressure Samples Time Site Value (mmHg) Purpose Heart Use Rate(bpm) 14:55 LV 120/11,12 Snapshot 79 Gradients Valve Time Site Site Mean SEP/DFP Peak To Heart Use 1 2 (mmHg) (sec/min) Peak Rate (mmHg) (bpm) Aortic 14:56 LV AO 79 Snapshots Pre Cath Intra NCS Post Cath Vital Signs Time Heart Resp SPO2 etCO2 NIBP (mmHg) Rhythm Pain Sedation Rate (ipm) (%) (mmHg) Status Level (bpm) 14:24:50 80 16 96 0 133/88(112) NSR 0 (11) 10(A) , No pain 14:29:06 77 18 100 15.7 118/69(107) NSR 0 (11) 10(A) , No pain 14:33:16 72 15 99 11.9 121/77(86) NSR 0 (11) 10(A) , No pain 14:38:15 85 16 100 14.9 Measuring NSR 0 (11) 10(A) , No pain 14:38:34 76 15 98 17.2 116/53(89) NSR 0 (11) 10(A) , No pain 14:43:33 80 15 99 22.4 115/60(86) NSR 0 (11) 9(A) , No pain 14:47:44 73 15 100 20.2 120/63(94) NSR 0 (11) 9(A) , No pain 14:51:50 76 16 100 21.7 127/81(106) NSR 0 (11) 9(A) , No pain 14:56:02 78 15 100 20.9 137/79(115) NSR 0 (11) 9(A) , No pain 15:00:18 74 15 100 23.2 139/77(110) NSR 0 (11) 9(A) , No pain 15:04:32 77 15 100 22.4 141/76(109) NSR 0 (11) 10(A) , No pain 15:08:48 74 15 100 23.9 135/79(115) NSR 0 (11) 10(A) , No pain Medications Time Medication Route Dose Verified Delivered Reason Notes Effectiveness by by 14:23:55 0.9% NaCl I.V. 100 Rd Jen used for ml/hr Alfredo Donohue snuff grinder and screener 14:24:[address] Jen used for Nasal l/min Alfredo Donohue procedure cannula RN 14:24:06 Lidocaine 2% added 20ml Rd Rd for local to vial Alfredo Fuentes MD anesthetic field 14:24:11 Heparin Flush added [address] used for Bag to bags Alfredo Fuentes MD procedure (1000units/500ml field NS) 14:40:20 Versed I.V. [address] Jen for sedation Alfreod Donohue RN 14:40:[address] Jen for sedation mcg Alfredo Donohue RN 14:56:16 Heparin Bolus I.V. 3000 Rd Jen for verif ied units Alfredo Donohue anticoagulation with Dr. CORDELIA Fuentes Procedure Log Time Note 14:12:19 Informed consent obtained and on chart 14:13:20 Indication : CAD 14:13:35 Procedure Status Elective Heart Cath (OP). 14:13:40 Jen Donohue RN sent for patient. Start room use. 14:13:43 Time tracking: Regular hours (M-F 7:00 - 5:00) 14:13:50 Plan of Care:Hemodynamics will remain stable., Cardiac rhythm will remain stable., Comfort level will be maintained., Respiratory function will remain adequate., Patient/ family verbilizes understanding of procedure., Procedure tolerated without complication., Recovers from procedure without complications.. 14:16:50 Stress Test: yes; abnormal APICAL AND LATERAL 14:23:42 Vital chart was started 14:23:55 0.9% NaCl 100 ml/hr I.V. was administered by Jen Donohue RN; used for procedure; Verbal order read back and verified. 14:24:01 Oxygen 2 l/min etCO2 Nasal cannula was administered by Jen Donohue RN; used for procedure; Verbal order read back and verified. 14:24:06 Lidocaine 2% 20ml vial added to field was administered by Rd Fuentes MD; for local anesthetic; Verbal order read back and verified. 14:24:11 Heparin Flush Bag (1000units/500ml NS) 2 bags added to field was administered by Rd Fuentes MD; used for procedure; Verbal order read back and verified. 14:29:35 Arrival Date: 10/04/2019 12:00:00 AM 14:29:54 Patient Height : 69 inches 14:29:57 Patient Weight : 163.34 lbs 14:30:01 Admit Source: Other 14:30:06 Insurance Payor : Medicare 14:32:30 Lab Result : eGFR NONAFRICAN 56 ml/min 14:32:30 Lab Result : Creatinine 1.3 mg/dl 14:32:30 Lab Result : BUN 23 mg/dl 14:32:30 Lab Result : Hematocrit 49.3 % 14:32:30 Lab Result : Hemoglobin 16.5 g/dl 14:32:53 Patient received from Pre/Post Procedure Room to CCL 1 Alert and oriented. Tansferred to table in Supine position. 14:32:54 Warm blankets applied, and good hugger turned on for patient comfort. 14:32:55 Correct patient and procedure confirmed by team. 14:32:56 ECG and BP/O2 sat monitors applied to patient. 14:32:57 Full Disclosure recording started 14:33:01 Rhythm: sinus rhythm 14:33:03 Baseline sample Acquired. 14:33:15 H&P Date Dictated: 09/06/2019 Within 30 days and on chart.. 14:33:17 Pre-procedure instructions explained to patient. 14:33:17 Pre-op teaching completed and patient verbalized understanding. 14:33:19 Family unavailable. 14:33:21 Patient NPO since Midnight. 14:33:35 Patient allergic to Other allergyVENOM-WASP 14:33:38 Is the patient allergic to Iodine/contrast media? No. 14:33:40 Was the patient premedicated? N/A 14:33:44 Is patient on blood thinner?Yes 14:33:47 Patient diabetic? No. 14:33:48 ----Pre-sedation anethsthesia assessment.---- 14:33:52 Previous problem with sedation/anesthesia? No ? 14:33:53 Snore? Yes 14:33:55 Sleep apnea? Unknown 14:33:56 Deviated septum? No 14:33:57 Opens mouth fully? Yes 14:33:59 Sticks out tongue? Yes 14:34:34 Dentures? No ? 14:34:38 Pre procedure: right dorsailis pedis pulse 2+ Normal; easily identifiable; not easily obliterated 14:34:41 Modified Arcadio's test Ulnar < 7 seconds 14:34:46 Patient pain scale 0/10 ?. 14:35:16 ACC The patient was administered the following blood thiners within the last 24 hours: Xarelto 14:36:13 IV patent on arrival in left forearm with 0.9% NaCl at KVO. 14:36:16 Lab results completed and on chart. 14:37:47 Risk of Mortality: 0.8 14:37:50 Risk of blood transfusion: 1.2 14:37:53 Risk of YAMEL: 2.2 14:38:13 Right Radial & Right Groin area was prepped with chlora-prep and draped in sterile fashion 14:38:15 Alarms reviewed by R. N. 14:38:16 Sharps counted by scrub and verified by R.N. 14:38:28 --------ALL STOP TIME OUT------ 14:38:28 Final Timeout: patient, procedure, and site verified with staff and physician. All members of the team are in agreement. 14:38:32 Right Radial & Right Groin site verified by team. 14:38:37 Fire Safety Assessment: A--An alcohol-based skin anteseptic being used preoperatively., C--Open oxygen or nitrous oxide is being used., D--An ESU, laser, or fiber-optic light is being used. 14:38:40 Physical assessment completed. ASA score P 2 - A patient with mild systemic disease as per Rd Fuentes MD. 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 14:38:56 Maximum allowable contrast dose (3.7 X eGFR X 0.75)155 ml. 14:39:13 Sedation plan: IV Moderate Sedation Medication:Versed, Fentanyl 14:39:17 Use device set Radial Dx or PCI 14:39:18 ACIST Syringe (94020) opened to sterile field. 14:39:19 Medline Cath Pack ([id number]) opened to sterile field. 14:39:19 Bag Decanter (2002) opened to sterile field. 14:39:20 ACIST Hand Control (59265) opened to sterile field. 14:39:21 ACIST Manifold (80292) opened to sterile field. 14:39:22 MBrace Wrist Support ([id number]) opened to sterile field. 14:39:23 NEEDLE Cook 21G 4cm Radial (V79951) opened to sterile field. 14:39:24 EMERALD Guide Wire (626-469) opened to sterile field. 14:39:25 SHEATH 6FR RAIN (9642721) opened to sterile field. 14:40:20 Versed 2 mg I.V. was administered by Jen Donohue RN; for sedation; Verbal order read back and verified. 14:40:29 Fentanyl 50 mcg I.V. was administered by eJn Donohue RN; for sedation; Verbal order read back and verified. 14:46:05 Procedure started. 14:47:27 Local anesthetic to right femoral artery with Lidocaine 2% by Rd Fuentes MD.INITIAL ACCESS ONLY 14:48:03 SHEATH 5FR [place] (BZZ329) opened to sterile field. 14:48:58 A 5 Fr sheath was inserted into the Right Femoral artery 14:49:27 Use device set Femoral Dx 14:49:39 Medline Cath Pack ([id number]) opened to sterile field. 14:49:43 DIAGNOSTIC Multipack 5Fr catheter set (EV6891) opened to sterile field. 14:49:56 A MULTIPACK JL 4.0 5Fr catheter was advanced over the wire and used for Procedure. 14:50:00 LCA angiography performed. 14:50:03 Injector settings: Ml/sec: 3, Volume: 6, 14:51:11 Catheter exchanged over wire. 14:51:48 A MULTIPACK 3DRC 5Fr catheter was advanced over the wire and used for Procedure. 14:52:20 RCA angiography performed. 14:53:38 Injector settings: Ml/sec: 3, Volume: 6, 14:53:42 ACCDominant side:Right 14:53:49 Catheter exchanged over wire. 14:53:59 A MULTIPACK Pigtail 5 Fr catheter was advanced over the wire and used for Procedure. 14:54:13 Use device set FUENTES PCI 14:54:49 [place] Verrata Plus pressure wire (94348C) opened to sterile field. 14:54:54 LV gram done using ROMERO 14:54:58 Injector settings: Ml/sec: 5, Volume: 15, 14:55:31 LV hemodynamics recorded. 14:55:47 EF : 45 % 14:56:16 Heparin Bolus 3000 units I.V. was administered by Jen Donohue RN; for anticoagulation; verified with Dr. Fuentes Verbal order read back and verified. 14:56:24 Catheter exchanged over wire. 14:56:25 Proceeding to intervention. 14:56:55 TUBING High Pressure Extension Tubing (Alfredo) ([id number]) opened to sterile field. 14:57:17 5 Fr 3DRC guide catheter was inserted over the wire 14:59:22 FFR/IFR wire advanced. 15:01:34 Wire advanced across lesion. 15:01:44 pRCA lesion measured at .96 with IFR 15:04:52 pRCA lesion measured at .95 with IFR 15:06:25 Wire removed. 15:06:26 Guide catheter removed. 15:06:31 EXOSEAL 5Fr (EX500) opened to sterile field. 15:06:42 Sheath removed intact; hemostasis achieved with Exoseal to the Right Femoral artery. 15:06:44 Procedure ended.(Physican Out) 15:07:03 Fluoroscopy time 02.80 minutes. 15:07:07 Fluoroscopy dose: 429 mGy 15:07:07 Flurop Dose total: 429 15:07:13 Dose Area Product 37065 mGy/cm. 15:07:20 Contrast amount:Isovue 370 64ml. 15:07:24 Maximum allowable dose exceeded? No. 15:07:24 Sharps counted by scrub and verified by R.N. 15:07:32 Post-op/insertion site Right Femoral artery dressed using a 4 x 4 and Tegaderm. 15:07:37 Post right femoral artery:stable, soft, clean and dry 15:07:38 Post Procedure Pulses reassessed and unchanged 15:07:41 Post procedure: right dorsailis pedis pulse 2+ Normal; easily identifiable; not easily obliterated. 15:07:44 Post-procedure physical assessment completed. ASA score P 2 - A patient with mild systemic disease as per Rd Fuentes MD. 15:07:46 Post procedure rhythm: unchanged. 15:07:50 Estimated blood loss: 10 ml 15:07:51 Post procedure instruction explained to patient.Patient verbalizes understanding. 15:07:52 Patient needs reinforcement of post procedure teaching. 15:08:55 Procedure type changed to Cath procedure, Diagnostic procedure, LHC, LHC w/Coronaries, FFR/IVUS, FFR Initial, Sedation Charges, Moderate Sedation up to 30 minutes, PCI procedure, Hemochron ACT Test 15:11:18 Procedure and supply charges have been captured, reviewed, submitted and are correct. 15:11:23 Procedure Complication : No complications 15:11:25 Vital chart was stopped 15:11:[address] [facility] Findings: MVD- PCI performed (see procedure note) 15:11:29 Operative report dictated upon procedure completion. 15:11:30 See physician's report for complete and final results. 15:11:33 Report given to Pre/Post Procedure Room. 15:11:36 Patient transfered to Pre/Post Procedure Room with Stretcher. 15:11:41 Procedure ended. 15:11:41 Full Disclosure recording stopped 15:11:51 End room use (Document Last) 15:12:34 End room use (Document Last) 15:13:00 End room use (Document Last) Device Usage Item Name Manufacture Quantity Catalog Hospital Part Current Mini mal Lot# / Number Charge Number Stock Stock Serial# Code ACIST Acist 1 67258 [id number] 990804 218296 20 Syringe Medical (10655) Systems Inc Medline Medline 2 [id number] 382196 55337 824184 5 Cath Pack ([id number]) Bag Microtek 1 282428 41327 847882 5 Decanter Medical Inc. () ACIST Hand Acist 1 56648 786624 803218 741480 5 Control Medical (31480) Systems Inc ACIST Acist 1 23618 090970 211614 196046 5 Manifold Medical (07914) Systems Inc MBrace Advanced 1 140-0250-00 276451 37006 515008 5 Wrist Vascular Support Dynamics (110049000) NEEDLE POSLavu Medical 1 U97072 288494 832048 943996 5 21G 4cm Radial (P56154) EMERALD Cardinal 1 502-455 462420 371931 853935 5 Guide Wire Health (502-455) SHEATH 6FR Cardinal 1 0709093 204189 9605389 563752 5 [facility] (0806065) DIAGNOSTIC Cardinal 1 MI2366 700375 36764 157419 30 Multipack Health 5Fr catheter set (PA2274) MULTIPACK Cardinal 1 769958 5 JL 4.0 5Fr Health catheter MULTIPACK Cardinal 1 174790 5 3DRC 5Fr Health catheter MULTIPACK Cardinal 1 464094 5 Pigtail 5 Health Fr catheter [place] 1 [id number] 476843 [id number] 566645 5 Verrata Plus pressure wire (62521E) TUBING High Merit 1 [id number] 312532 65005 981576 10 Pressure Medical Extension Tubing (Alfredo) ([id number]) EXOSEAL 5Fr Cardinal 1 EX500 509273 044733 560700 10 (EX500) Health SHEATH 5FR Terumo 1 RLY793 062607 671757 032020 5 [place] (MQP850) Signature Audit [place] Stage Time Signature Unsigned Intra-Procedure 10/04/2019 Mralen Aviles 3:12:34 PM RT(R) Intra-Procedure 10/04/2019 Jen Donohue 3:13:00 PM RN Intra-Procedure 10/04/2019 Rd Fuentes MD 3:13:16 PM [facility] [address] [place] [address]
[2019-10-04] MEDS ORDERED: BAYER CHEWABLE81 MG PO (12:34)
[2019-10-04] MEDS ORDERED: IPRAT-ALBUT 0.5-3 ML UPD (12:35)
[2019-10-04 12:51] VITALS: BP 163/80; Ht 175.3 cm; Wt 74.1 kg
[2019-10-04 13:12] LABS: ANION GAP 12.8 mmol/L (8-16); CALCIUM 9.6 mg/dL (8.5-10.1); CARBON DIOXIDE 29.4 mmol/L (21.0-32.0); CHOL - HDL RATIO 2.8 ratio (2.3-4.9); CREATININE - SERUM 1.3 mg/dL (0.6-1.3); LDL-HDL RATIO 1.4 ratio (1.5-3.5); POTASSIUM - SERUM 4.2 mmol/L (3.5-5.1)
[2019-10-04 13:21] LABS: BASOPHILS 0.3 % (0-2); EOSINOPHILS 5.6 % (0-7); HEMATOCRIT 49.3 % (42.0-54.0); HEMOGLOBIN 16.5 g/dL (13.5-17.5); IMMATURE GRANULOCYTES 0.4 % (0-5); LYMPHOCYTES 29.2 % (15-50); MCH 30.6 pg (26.0-34.0); MCHC 33.5 g/dL (31.0-37.0); MCV 91.5 fL (80.0-100.0); MEAN PLATELET VOLUME 9.8 fL (7.4-10.4); MONOCYTES 5.2 % (2-11); NEUTROPHILS 59.3 % (40-80); PLATELET COUNT 234 10x3/uL (130-400); RBC 5.39 10x6/uL (4.20-6.10); RDW 13.9 % (11.5-14.5); WBC 10.4 10x3/uL (4.8-10.8)
--- NOTE | 2019-10-04 15:30 | NUR ---
PT REC'D TO ROOM 3 VIA STRETCHER FROM SR. MEDIA MANAGER, MONITORS ESTAB, AT BS. SEE BORING MACHINE OPERATOR, ALARMS ON AND C/L IN REACH.
--- NOTE | 2019-10-04 15:45 | NUR ---
R GROIN SITE SOFT, NO S/S BLEEDING OR HEMATOMA. R LEG/FOOT WARM WITH PALP PULSES. VSS. ALARMS ON. 02 WEANED OFF. AT BS.
--- NOTE | 2019-10-04 16:15 | NUR ---
R GROIN SITE SOFT, NO S/S BLEEDING OR HEMATOMA. PULSES PALP. VSS. PT RESTING QUIETLY, DENIES NEEDS.
--- NOTE | 2019-10-04 16:30 | NUR ---
PT VOIDED 250CC CLEAR, YELLOW URINE IN URINAL. VSS. R GROIN SITE C/D/I, NO S/S BLEEDING OR HEMATOMA. PULSES PALP. C/L IN REACH.
--- NOTE | 2019-10-04 16:50 | NUR ---
R GROIN SITE SOFT, C/D/I. HOB ELEVATED AND SANDWICH TRAY PROVIDED. ASSITING PT. VSS, PT DENIES PAIN OR NEEDS.
--- NOTE | 2019-10-04 17:25 | NUR ---
R GROIN SITE SOFT, NO S/S BLEEDING OR HEMATOMA. ALL DISCHARGE INSTRUCTIONS REVIEWED WITH PT AND HIS - INCLUDING RESTRICTIONS, MEDICATIONS AND PRE-PROCEDURE SHEET FOR OCT 11. BOTH VERBALIZE UNDERSTANDING.
--- NOTE | 2019-10-04 17:40 | NUR ---
R GROIN SITE C/D/I, NO S/S BLEEDING. PIV D/C'D INTACT, DSG APPLIED. PT ALLOWED UP TO GET DRESSED AND GO TO BR INDEPENDENTLY.
--- NOTE | 2019-10-04 17:55 | NUR ---
PT D/C'D VIA WC TO PRIVATE VEHICLE WITH . PT HAS ALL BELONGINGS AND PAPERWORK.
== END 2019-10-04 17:55 | disposition home or self-care (01) ==
LOC: D.CATH 11:50
PROVIDERS: ATTEND Internal Medicine Cardiovascular Disease
DX: I25.119 Atherosclerotic heart disease of native coronary artery with unspecified angina pectoris (principal); R94.39 Abnormal result of other cardiovascular function study; J44.9 Chronic obstructive pulmonary disease, unspecified; I10 Essential (primary) hypertension; E78.5 Hyperlipidemia, unspecified; F17.200 Nicotine dependence, unspecified, uncomplicated; R00.1 Bradycardia, unspecified; R06.00 Dyspnea, unspecified; R53.83 Other fatigue; I48.0 Paroxysmal atrial fibrillation

== ENCOUNTER 2019-10-12 07:22 | Day surgery (SDC) | payer MEDICARE, BC ==
[~2019-10-12] VITALS: Ht 175.3 cm; Wt 73.5 kg
--- NOTE | ~2019-10-12 | HEMODYNAMI ---
PATIENT:LUIS BELLO MEDICAL RECORD: [id number] : 37 LOCATION:D.CAT ADMISSION DATE: 10/12/19 Generatedon:10/12/201910:51 Patient name: LUIS BELLO Patient #: [id number] SSN: [id number] : 1935 Date of study: 10/12/2019 Page: Of Hemodynamic Procedure Report Patient Data Patient Demographics Procedure consent was obtained First Name: LUIS Gender: Male Last Name: ACE : 1935 [facility] Initial: JAE Age: 84 year(s) Patient #: [id number] Race: SSN: [id number] Additional ID: [id number] Contact details Address: [address] [place] [address] State: [place] City: [place] Zip code: [address] Past Medical History Allergies Allergen Reaction Date Comments Reported Other allergy 02/21/2016 wasp venom Bee/Wasp stings 02/25/2016 Other allergy 03/22/2017 WASP VENOM Other allergy 10/10/2018 sotalol, propafenone, wasp venom Other allergy 10/04/2019 VENOM-WASP Admission Admission Data Admission Date: 10/12/2019 Admission Time: 7:22 Arrival Date: 10/12/2019 Arrival Time: 0:00 Height (in.): 68.9 BSA: 1.89 (m2) Height (cm.): 175 BMI: 24.16 (kg/m2) Weight (lbs.): 163.14 Weight (kg.): 74 Lab Results Lab Result Date: 10/12/2019 Lab Result Time: 0:00 Biochemistry Name Units Result Min Max BUN mg/dl 21 --(----)-* 7 18 Creatinine mg/dl 1.3 --(---*)-- 0.6 1.3 eGFR ml/min 56 *-(----)-- 90 120 NONAFRICAN CBC Name Units Result Min Max Hematocrit % 46.5 --(-*--)-- 42 54 Hemoglobin g/dl 15.4 --(-*--)-- 13.5 17.5 Procedure Procedure Types Cath Procedure Diagnostic Procedure Sedation Charges Moderate Sedation up to 30 minutes PCI Procedure Coronary Atherectomy Atherectomy w/PTCA Coronary Initial Hemochron ACT Test Procedure Description Procedure Date Procedure Date: 10/12/2019 Procedure Start Time: 10:08 Procedure End Time: 10:49 Procedure Staff Name Function Rd Villeda MD Performing Physician Patsy Figueroa RT Monitor Reggie Arzola RN Nurse Merle Hough RT Scrub [facility] RT Utilization Management Nurse Indication CAD Procedure Data Cath Procedure Fluoroscopy Diagnostic fluoroscopy Total fluoroscopy Time: time: 11.9 min 11.9 min Diagnostic fluoroscopy Total fluoroscopy dose: dose: 1014 mGy 1014 mGy Contrast Material Contrast Material Type Amount (ml) Isovue 300 77 Entry Location Entry Primary Successful Side Size Upsize Upsize Entry Closure Aguayo ccessful Closure Location (Fr) 1 (Fr) 2 (Fr) Remarks Device Remarks Femoral Right 6 Fr Manual vein Short Compression Femoral Right 6 Fr Exoseal artery Short Estimated blood loss: 10 ml Procedure Complications No complications Procedure Medications Medication Administration Route Dosage Oxygen etCO2 Nasal cannula 2 l/min Lidocaine 2% added to field 20 Heparin Flush Bag added to field 2 bags (1000units/500ml NS) 0.9% NaCl I.V. 100 ml/hr Versed I.V. 1 mg Fentanyl I.V. 50 mcg Heparin Bolus I.V. 7000 units Versed I.V. 1 mg Fentanyl I.V. 50 mcg Versed I.V. 1 mg Nitroglycerin IC/IA I.C. 100 mcg Versed I.V. 1 mg Plavix P.O. 600 mg Hemodynamics Rest BSA: 1.89 (m2) HGB: 15.4 (g/dl) O2 Consumption: Estimated: 220.9 (ml/min) O2 Con sumption indexed: Estimated:116.88 (ml/min/m) Heart Rate: 78 (bpm) Snapshots Pre Cath Intra NCS Post Cath Vital Signs Time Heart Resp SPO2 etCO2 NIBP (mmHg) Rhythm Pain Sedation Rate (ipm) (%) (mmHg) Status Level (bpm) 9:47:53 77 17 97 28.4 130/71(96) NSR 0 (11) 10(A) , No pain 9:51:40 79 18 98 20.9 123/62(93) NSR 0 (11) 10(A) , No pain 9:55:29 79 15 98 19.4 110/59(83) NSR 0 (11) 10(A) , No pain 9:59:15 77 16 98 23.2 111/63(81) NSR 0 (11) 10(A) , No pain 10:03:02 75 15 98 26.9 107/57(72) NSR 0 (11) 10(A) , No pain 10:07:14 77 15 98 20.9 106/59(80) NSR 0 (11) 9(A) , No pain 10:11:01 78 16 98 21.7 93/60(76) NSR 0 (11) 9(A) , No pain 10:15:09 85 13 98 20.9 108/60(91) NSR 0 (11) 9(A) , No pain 10:19:01 77 18 98 23.9 108/52(76) NSR 0 (11) 9(A) , No pain 10:23:09 79 16 98 24.7 135/65(105) NSR 0 (11) 9(A) , No pain 10:27:14 87 15 99 24.7 142/88(118) NSR 0 (11) 9(A) , No pain 10:31:20 79 15 99 29.9 158/83(110) NSR 0 (11) 9(A) , No pain 10:36:09 86 17 98 1.4 143/86(126) NSR 0 (11) 9(A) , No pain 10:40:15 86 18 98 14.9 150/89(122) NSR 0 (11) 10(A) , No pain 10:44:22 82 17 98 29.9 165/91(133) NSR 0 (11) 10(A) , No pain 10:49:11 81 18 99 24.7 170/87(123) NSR 0 (11) 10(A) , No pain Medications Time Medication Route Dose Verified Delivered Reason Notes Effectiveness by by 9:48:[address] Buffie used for Nasal l/min Alfredo Arzola associate professor of radiology cannula 9:48:51 Lidocaine 2% added 20ml Rd Rd for local to vial Alfredo Villeda MD anesthetic field 9:48:56 Heparin Flush added [address] used for Bag to bags Alfredo Villeda MD procedure (1000units/500ml field NS) 9:49:04 0.9% NaCl I.V. 100 Rd Buffie Per physician ml/hr Alfredo Arzola RN 10:04:36 Versed I.V. [address] Buffie for sedation Alfredo Arzola RN 10:04:[address] I[address] Buffie for sedation mcg Alfredo Arzola RN 10:09:44 Versed I.V. [address] for sedation Alfredo Villeda MD 10:14:19 Heparin Bolus I.V. 7000 [address] Buffie for verif ied units Alfredo Arzola RN anticoagulation with dr villeda 10:21:49 Versed I.V. [address] Buffie for sedation Alfredo Arzola RN 10:21:53 [address] I[address] Buffie for sedation mcg Alfredo Arzola RN 10:29:27 Versed I.V. [address] Buffie for sedation Alfredo Arzola RN 10:35:[address] for IC/IA mcg Alfredo Villeda MD vasodilation 10:44:[address] Buffie for mg Alfredo Arzola RN antiplatelet therapy Procedure Log Time Note 9:33:09 Camilla Winslow RT(R) sent for patient. Start room use. 9:35:40 Informed consent obtained and on chart 9:36:54 Indication : CAD 9:37:03 Procedure Status PCI. 9:37:11 Time tracking: Regular hours (M-F 7:00 - 5:00) 9:37:20 Plan of Care:Hemodynamics will remain stable., Cardiac rhythm will remain stable., Comfort level will be maintained., Respiratory function will remain adequate., Patient/ family verbilizes understanding of procedure., Procedure tolerated without complication., Recovers from procedure without complications.. 9:38:35 Patient received from Pre/Post Procedure Room to CCL 2 Alert and oriented. Tansferred to table in Supine position. 9:38:37 Warm blankets applied, and good hugger turned on for patient comfort. 9:38:37 Correct patient and procedure confirmed by team. 9:38:38 ECG and BP/O2 sat monitors applied to patient. 9:39:00 H&P Date Dictated: 10/12/2019 H&P Addendum completed by physician on day of procedure. (MUST COMPLETE FOR ALL OUTPATIENTS), New H&P dictated by physician.. 9:39:02 Pre-procedure instructions explained to patient. 9:39:03 Pre-op teaching completed and patient verbalized understanding. 9:39:05 Family in patients room. 9:39:08 Patient NPO since Midnight. 9:39:17 Is the patient allergic to Iodine/contrast media? No. 9:39:21 Was the patient premedicated? Yes 9:39:24 Is patient on blood thinner?Yes 9:39:31 ACC The patient was administered the following blood thiners within the last 24 hours: Xarelto 9:39:36 Patient diabetic? No. 9:39:40 - 9:39:41 ----Pre-sedation anethsthesia assessment.---- 9:39:45 Previous problem with sedation/anesthesia? No ? 9:39:48 Snore? Yes 9:39:51 Sleep apnea? No 9:39:53 Deviated septum? Unknown 9:39:56 Opens mouth fully? Yes 9:39:58 Sticks out tongue? Yes 9:40:01 Airway obstruction? No ? 9:40:05 Dentures? No ? 9:40:15 Use device set Femoral Dx 9:40:16 ACIST Syringe (51502) opened to sterile field. 9:40:17 Bag Decanter (2002) opened to sterile field. 9:40:18 Medline Cath Pack ([id number]) opened to sterile field. 9:40:20 ACIST Hand Control (40820) opened to sterile field. 9:40:21 ACIST Manifold (83449) opened to sterile field. 9:40:22 DIAGNOSTIC Multipack 5Fr catheter set ([id number]) opened to sterile field. 9:40:23 Tegaderm 4 x 4 (1626W) opened to sterile field. 9:40:26 EMERALD Guide Wire (629-311) opened to sterile field. 9:46:53 Vital chart was started 9:47:00 Full Disclosure recording started 9:47:27 Baseline sample Acquired. 9:48:21 Rhythm: sinus rhythm 9:48:41 Pre procedure: right dorsailis pedis pulse 1+ Palpable, but thready & weak; easily obliterated 9:48:44 Oxygen 2 l/min etCO2 Nasal cannula was administered by Reggie Arzola RN; used for procedure; Verbal order read back and verified. 9:48:51 Lidocaine 2% 20ml vial added to field was administered by Rd Villeda MD ; for local anesthetic; Verbal order read back and verified. 9:48:56 Heparin Flush Bag (1000units/500ml NS) 2 bags added to field was administered by Rd Villeda MD; used for procedure; Verbal order read back and verified. 9:49:02 IV patent on arrival in left forearm with 0.9% NaCl at [facility]. 9:49:04 0.9% NaCl 100 ml/hr I.V. was administered by Reggie Arzola RN; Per physician; Verbal order read back and verified. 9:49:50 Lab Result : BUN 21 mg/dl 9:49:50 Lab Result : Creatinine 1.3 mg/dl 9:49:50 Lab Result : eGFR NONAFRICAN 56 ml/min 9:49:50 Lab Result : Hemoglobin 15.4 g/dl 9:49:50 Lab Result : Hematocrit 46.5 % 9:49:57 Lab results completed and on chart. 9:50:26 Stress Test: yes; abnormal apical and lateral 9:50:32 Right groin area was prepped with chlora-prep and draped in sterile fashion 9:50:35 Alarms reviewed by R. N. 9:50:36 Sharps counted by scrub and verified by R.N. 9:50:55 Quick Combo opened to sterile field. 9:51:01 Quick combo pads placed on patients chest and back. 9:51:33 TUBING High Pressure Extension Tubing (Alfredo) (GQ2452M) opened to sterile field. 9:51:34 SHEATH 6FR [place] (ZLJ086) opened to sterile field. 9:51:47 INFLATOR Walter Navarrete (NV6300) opened to sterile field. 9:52:20 BMW 300cm [place] 2 J wire ([id number]) opened to sterile field. 9:53:20 Arrival Date: 10/12/2019 12:00:00 AM 9:53:25 Patient Height : 68.9 inches 9:53:31 Patient Weight : 163.14 lbs 10:04:09 Risk of Mortality: 0.9 10:04:13 Risk of blood transfusion: 0.2 10:04:18 Risk of YAMEL: 1.7 10:04:22 Physician arrived 10:04:23 --------ALL STOP TIME OUT------ 10:04:28 Final Timeout: patient, procedure, and site verified with staff and physician. All members of the team are in agreement. 10:04:31 Right groin site verified by team. 10:04:36 Versed 1 mg I.V. was administered by Reggie Arzola RN; for sedation; Verbal order read back and verified. 10:04:36 Fire Safety Assessment: A--An alcohol-based skin anteseptic being used preoperatively., C--Open oxygen or nitrous oxide is being used., D--An ESU, laser, or fiber-optic light is being used. 10:04:42 Fentanyl 50 mcg I.V. was administered by Reggie Arzola RN; for sedation; Verbal order read back and verified. 10:04:43 Physical assessment completed. ASA score P 2 - A patient with mild systemic disease as per Rd Villeda MD. 10:04:50 3a) 45-59 Moderately reduced kidney function. 10:04:55 Maximum allowable contrast dose (3.7 X eGFR X 0.75)155 ml. 10:05:01 Sedation plan: IV Moderate Sedation Medication:Versed, Fentanyl 10:05:20 GUIDE 6FR AR 1.0 catheter (OB1MG41) opened to sterile field. 10:06:23 Zero performed for pressure channel P1 10:08:30 Procedure started. 10:08:36 Local anesthetic to right femoral artery with Lidocaine 2% by Rd flores MD.INITIAL ACCESS ONLY 10:09:20 SHEATH 6FR [place] (CQE702) opened to sterile field. 10:09:44 Versed 1 mg I.V. was administered by Rd Villeda MD; for sedation; Verba l order read back and verified. 10:10:41 A 6 Fr Short sheath was inserted into the Right Femoral vein 10:11:37 A 6 Fr Short sheath was inserted into the Right Femoral artery 10:12:14 6 Fr AR1 guide catheter was inserted over the wire 10:13:50 RCA angiography performed. 10:14:00 Injector settings: Ml/sec: 3, Volume: 6, 10:14:08 ACC Pre-intervention GABRIEL Flow is 3. 10:14:19 Heparin Bolus 7000 units I.V. was administered by Reggie Arzola RN; for anticoagulation; verified with dr villeda Verbal order read back and verified. 10:15:17 Pre PCI Site: Point [place] pRCA has 80% stenosis. 10:15:26 UCH709 wire advanced. 10:16:53 LASER ELCA 0.9 OTW atherectomy catheter (110-002) opened to sterile field. 10:17:14 Wire advanced across lesion. 10:21:06 Laser pass to pRCA TO MRCA with Fluence of 40 and Rate of 40. 10:21:49 Versed 1 mg I.V. was administered by Reggie Arzola RN; for sedation; Verbal order read back and verified. 10:21:53 Fentanyl 50 mcg I.V. was administered by Reggie Arzola RN; for sedation; Verbal order read back and verified. 10:23:19 Laser pass to pRCA with Fluence of 60 and Rate of 60. 10:25:59 RCA angiography performed. 10:26:15 Laser pass to pRCA TO MRCA with Fluence of 80 and Rate of 80. 10:27:09 Laser pass to pRCA TO MRCA with Fluence of 80 and Rate of 80. 10:27:31 Laser pass to pRCA TO MRCA with Fluence of 80 and Rate of 80. 10:28:04 RCA angiography performed. 10:28:20 Laser catheter removed. 10:29:27 Versed 1 mg I.V. was administered by Reggie Arzola RN; for sedation; Verbal order read back and verified. 10:31:15 Inflate balloon Inflation number: 1 A EMERGE OTW 3.0 x 30 balloon ([id number]) was prepped and advanced across the Mid RCA , then inflated to 13 SHEEBA for 0:28 (min:sec) . 10:31:58 Inflation number: 2 The EMERGE OTW 3.0 x 30 balloon ([id number]) was reinflated across the Mid RCA , to 14 SHEEBA for 0:21 (min:sec) . 10:33:41 Inflation number: 3 The EMERGE OTW 3.0 x 30 balloon ([id number]) was reinflated across the Mid RCA , to 14 SHEEBA for :20 (min:sec) . 10:35:16 Nitroglycerin IC/IA 100 mcg I.C. was administered by Rd Villeda MD; for vasodilation; Verbal order read back and verified. 10:35:32 Balloon reMOVED over wire. 10:36:08 NITRO GIVEN IC. 10:36:26 RCA angiography performed. 10:36:44 Balloon re-inserted over wire. 10:37:35 Inflation number: 4 The EMERGE OTW 3.0 x 30 balloon ([id number]) was reinflated across the Mid RCA , to 8 SHEEBA for 0:25 (min:sec) . 10:38:12 Inflation number: 5 The EMERGE OTW 3.0 x 30 balloon ([id number]) was reinflated across the Mid RCA , to 16 SHEEBA for 0:19 (min:sec) . 10:39:10 BALLOON PULLED INTO GUIDE AND AN INJECTION MADE. 10:39:14 Balloon removed over the wire. 10:39:17 Wire removed. 10:39:19 Guide catheter removed. 10:39:50 EXOSEAL 6Fr (EX600) opened to sterile field. 10:40:19 Sheath removed intact; hemostasis achieved with Exoseal to the Right Femoral artery. 10:40:50 Sheath removed intact; hemostasis achieved with Manual Compression to the Right Femoral vein. 10:41:10 Contrast amount:Isovue 300 77ml. 10:41:12 Procedure ended.(Physican Out) 10:41:37 ACC Post-intervention GABRIEL Flow is 3. 10:41:47 Laser total pulses delivered: 3500 10:41:51 Laser total treatment time: 3 minutes 10 seconds 10:42:05 Post PCI Site: Point [place] Ira pRCA has 0% stenosis. 10:43:50 Fluoroscopy time 11.90 minutes. 10:44:14 Plavix 600 mg P.O. was administered by Reggie Arzola RN; for antiplatelet therapy; Verbal order read back and verified. 10:44:54 Flurop Dose total: 1014 10:44:55 Fluoroscopy dose: 1014 mGy 10:45:05 Dose Area Product 40149 mGy/cm. 10:45:08 Maximum allowable dose exceeded? No. 10:45:10 Sharps counted by scrub and verified by R.N. 10:45:13 Insertion/operative site no bleeding no hematoma. 10:45:18 Post-op/insertion site Right Femoral artery dressed using a 4 x 4 and Tegaderm. 10:45:28 Post-op/insertion site Right Femoral vein dressed using a 4 x 4 and Tegaderm. 10:45:31 ACT drawn and resulted at out of range high seconds. (normal therapeuti c range 180-240 seconds). 10:45:33 Post right femoral artery:stable 10:45:38 Post right femoral vein:stable 10:45:44 Post-procedure physical assessment completed. ASA score P 2 - A patient with mild systemic disease as per Rd Villeda MD. 10:46:40 Post procedure rhythm: sinus rhythm 10:46:44 Estimated blood loss: 10 ml 10:46:46 Post procedure instruction explained to patient.Patient verbalizes understanding. 10:46:47 Patient needs reinforcement of post procedure teaching. 10:47:20 Procedure type changed to Cath procedure, Diagnostic procedure, Sedatio n Charges, Moderate Sedation up to 30 minutes, PCI procedure, Coronary Atherectomy, Atherectomy w/PTCA Coronary Initial, Hemochron ACT Test 10:47:54 Procedure and supply charges have been captured, reviewed, submitted an d are correct. 10:49:01 Procedure Complication : No complications 10:49:06 Vital chart was stopped 10:49:11 [facility] Findings: MVD- PCI performed (see procedure note) 10:49:17 Operative report dictated upon procedure completion. 10:49:19 See physician's report for complete and final results. 10:49:22 Report given to Pre/Post Procedure Room. 10:49:29 Patient transfered to Pre/Post Procedure Room with Stretcher. 10:49:33 Procedure ended. 10:49:33 Full Disclosure recording stopped 10:50:14 End room use (Document Last) Intervention Summary Intervention Notes Time ActionType Lesion and Equipment Action# Pressure Duration Attributes Used 10:31:15 Inflate Mid RCA EMERGE OTW 1 13 00:28 balloon 3.0 x 30 balloon ([id number]) 10:31:58 Reinflate Mid RCA EMERGE OTW 2 14 00:21 balloon 3.0 x 30 balloon ([id number]) 10:33:41 Reinflate Mid RCA EMERGE OTW 3 14 01:17 balloon 3.0 x 30 balloon ([id number]) 10:37:35 Reinflate Mid RCA EMERGE OTW 4 8 00:25 balloon 3.0 x 30 balloon ([id number]) 10:38:12 Reinflate Mid RCA EMERGE OTW 5 16 00:19 balloon 3.0 x 30 balloon ([id number]) Device Usage Item Name Manufacture Quantity Catalog Number Hospital Part Current Min imal Lot# / Charge Number Stock Stock Serial# Code ACIST Acist 1 56863 [id number] 711947 [id number] 20 Syringe Medical (11040) Systems Inc Bag Decanter Microtek 1 2001S 027891 55782 738523 5 () Medical Inc. Medline Cath Medline 1 [id number] 189609 89673 263953 5 Pack ([id number]) ACIST Hand Acist 1 64137 844228 923773 403051 5 Control Medical (68148) Systems Inc ACIST Acist 1 80526 828458 723378 774869 5 Manifold Medical (77389) Systems Inc DIAGNOSTIC Cardinal 1 OX8869 947444 05559 371152 30 Multipack Health 5Fr catheter set (PV2050) Tegaderm 4 x 3M 1 1626W 159690 973738 629658 5 4 (1626W) EMERALD Cardinal 1 502-455 701445 155308 274974 5 Guide Wire Health (502-455) Quick Combo Edge Systems 1 52531-835835 982380 379794 992612 5 TUBING High Merit 1 [id number] 961441 34405 514400 10 Pressure Medical Extension Tubing (Villeda) (OL3696S) SHEATH 6FR Terumo 2 QCV639 021341 454594 734448 40 [place] (YLI087) INFLATOR Merit 1 WI2579 280346 253733 733052 15 Merit Medical BasixCompak (VH4765) BMW 300cm Gautam 1 [id number] 784452 058958 426284 5 [place] 2 Vascular J wire (5357792E) GUIDE 6FR AR Medtronic 1 [id number] 130214 51871 338095 1 1.0 catheter (KV8QG85) LASER ELCA Sae 1 110-002 113484 417853 068896 5 0.9 OTW Healthcare atherectomy (745524) catheter (110-002) EMERGE OTW [place] 1 [id number] 265520 638340 875573 5 [id number] 3.0 x 30 Scientific balloon ([id number]) EXOSEAL 6Fr Cardinal 1 EX600 333349 033159 681177 10 (EX600) Health Signature Audit [place] Stage Time Signature Unsigned Intra-Procedure 10/12/2019 Patsy 10:50:38 AM Henry HERNADEZ(R) (CV) Intra-Procedure 10/12/2019 Reggie Arzola RN 10:51:05 AM Intra-Procedure 10/12/2019 Rd Villeda MD 10:51:33 AM Signatures Performing Physician : Signature : Rd Villeda MD Date : Time : Monitor : Patsy Signature : Henry RT Date : Time : Nurse : Reggie Arzola RN Signature : Date : Time : [facility] [address] [id number]
[~2019-10-12 07:22] MED LIST changes: +IPRAT-ALBUT 0.5-3 ML UPD
[2019-10-12 08:46] VITALS: BP 149/77; Ht 175.3 cm; Wt 73.5 kg
[2019-10-12 08:55] LABS: BASOPHILS 0.2 % (0-2); EOSINOPHILS 2.7 % (0-7); HEMATOCRIT 46.5 % (42.0-54.0); HEMOGLOBIN 15.4 g/dL (13.5-17.5); IMMATURE GRANULOCYTES 0.5 % (0-5); MCH 30.1 pg (26.0-34.0); MCHC 33.1 g/dL (31.0-37.0); MEAN PLATELET VOLUME 9.6 fL (7.4-10.4); MONOCYTES 7.8 % (2-11); NEUTROPHILS 68.8 % (40-80); PLATELET COUNT 250 10x3/uL (130-400); RBC 5.11 10x6/uL (4.20-6.10); RDW 13.9 % (11.5-14.5); WBC 15.2 10x3/uL (4.8-10.8)
[2019-10-12 09:05] LABS: ANION GAP 9.9 mmol/L (8-16); CALCIUM 9.3 mg/dL (8.5-10.1); CARBON DIOXIDE 28.8 mmol/L (21.0-32.0); CREATININE - SERUM 1.3 mg/dL (0.6-1.3); POTASSIUM - SERUM 3.7 mmol/L (3.5-5.1)
[2019-10-12] MEDS ORDERED: PLAVIX75 MG PO (10:56)
--- NOTE | 2019-10-12 11:15 | NUR ---
2L NC, NO RESP DISTRESS. RIGHT GROIN 6F EXOSEAL CDI, NO BLEEDING OR HEMATOMA NOTED. NO C/O NAUSEA OR PAIN. VSS. AT BEDSIDE, CALL LIGHT WITHIN REACH.
--- NOTE | 2019-10-12 11:45 | NUR ---
RESTING QUIETLY WITH EYES CLOSED. RIGHT GROIN 6F EXOSEAL CDI, NO BLEEDING OR HEMATOMA NOTED. NO C/O PAIN OR N/V. 2L NC WITH NO RESP DISTRESS. VSS. WILL CONTINUE TO MONITOR.
--- NOTE | 2019-10-12 12:00 | NUR ---
CONTINUES TO REST QUIETLY WITH NO C/O. RIGHT GROIN 6F EXOSEAL CDI, NO BLEEDING OR HEMATOMA NOTED. DENIES ANY NEEDS AT THIS TIME. VSS. CALL LIGHT WITHIN REACH.
--- NOTE | 2019-10-12 12:30 | NUR ---
RIGHT GROIN 6F EXOSEAL CDI, NO BLEEDING OR HEMATOMA NOTED. NO C/O PAIN OR NAUSEA AT THIS TIME. VSS. WILL CONTINUE TO MONITOR.
--- NOTE | 2019-10-12 13:00 | NUR ---
2L NC, NO RESP DISTRESS. RIGHT GROIN 6F EXOSEAL CDI, NO BLEEDING OR HEMATOMA NOTED. DENIES ANY NEEDS OR C/O. VSS. CALL LIGHT WITHIN REACH.
--- NOTE | 2019-10-12 14:00 | NUR ---
HOB ELEVATED 45 DEGREES. RIGHT GROIN 6F EXOSEAL CDI, NO BLEEDING NOTED. SIPPING ON DRINK AND EATING SANDWICH WITH NO C/O NAUSEA. DENIES ANY PAIN AT THIS TIME. VSS. WILL CONTINUE TO MONITOR.
--- NOTE | 2019-10-12 14:14 | NUR ---
VOIDED 200CC INTO URINAL.
--- NOTE | 2019-10-12 14:40 | NUR ---
LEFT AC PIV D/C'D WITH CATHETER INTACT, BAND AID TO SITE. RIGHT GROIN 6F EXOSEAL CDI, NO BLEEDING NOTED. UP TO BEDSIDE TO GET DRESSED.
--- NOTE | 2019-10-12 14:50 | NUR ---
DISCHARGE INSTRUCTIONS ALONG WITH PLAVIX PRESCRIPTION GIVEN TO PT AND . BOTH VERBALIZED UNDERSTANDING. TAKEN DOWNSTAIRS VIA WHEELCHAIR. LEFT FACILITY WITH AND ALL PERSONAL BELONGINGS.
== END 2019-10-12 15:00 | disposition home or self-care (01) ==
LOC: D.CATH 07:22
PROVIDERS: ATTEND Internal Medicine Cardiovascular Disease
DX: I25.119 Atherosclerotic heart disease of native coronary artery with unspecified angina pectoris (principal); R94.39 Abnormal result of other cardiovascular function study; Z95.5 Presence of coronary angioplasty implant and graft; I10 Essential (primary) hypertension; E78.5 Hyperlipidemia, unspecified; J44.9 Chronic obstructive pulmonary disease, unspecified; M54.9 Dorsalgia, unspecified

== ENCOUNTER 2020-05-10 11:13 | Emergency (ER) | payer MEDICARE, BC ==
[~2020-05-10] VITALS: Ht 175.3 cm; Wt 72.7 kg
[2020-05-10 11:17] VITALS: BP 160/75; Ht 175.3 cm; Wt 72.7 kg
[2020-05-10 12:12] LABS: BASOPHILS 0.1 % (0-2); EOSINOPHILS 0.3 % (0-7); HEMATOCRIT 44.8 % (42.0-54.0); HEMOGLOBIN 15.3 g/dL (13.5-17.5); IMMATURE GRANULOCYTES 0.4 % (0-5); LYMPHOCYTE ABS# 1.95 10x3/uL (1.32-3.57); LYMPHOCYTES 14.4 % (15-50); MCH 29.9 pg (26.0-34.0); MCHC 34.2 g/dL (31.0-37.0); MCV 87.5 fL (80.0-100.0); MEAN PLATELET VOLUME 9.2 fL (7.4-10.4); NEUTROPHIL ABS# 11.23 10x3/uL (1.78-5.38); NEUTROPHILS 82.8 % (40-80); PLATELET COUNT 252 10x3/uL (130-400); RBC 5.12 10x6/uL (4.20-6.10); WBC 13.6 10x3/uL (4.8-10.8)
[2020-05-10 12:16] LABS: APTT 30.2 SECONDS (22.8-39.4); INR 1.13 (0.85-1.17); PROTIME 13.4 SECONDS (11.6-15.0)
[2020-05-10 12:25] LABS: CALC OSMOLALITY 272 mosm/kg (275-300); CARBON DIOXIDE 25.5 mmol/L (21.0-32.0); CHLORIDE - SERUM 102 mmol/L (98-107); CREATININE - SERUM 1.2 mg/dL (0.6-1.3); GLUCOSE 102 mg/dL (74-106); SODIUM 135 mmol/L (136-145); UREA NITROGEN 21 mg/dL (7-18); eGFR NON AFRICAN AMERICAN 61 mL/min (90-120)
[2020-05-10 12:39] LABS: BILIRUBIN NEGATIVE (NEGATIVE); KETONE NEGATIVE (NEGATIVE); NITRITE NEGATIVE (NEGATIVE); UROBILINOGEN NORMAL mg/dL (< 2)
[2020-05-10 12:45] LABS: ALBUMIN 3.5 g/dL (3.4-5.0); ALKALINE PHOSPHATASE 81 U/L (30-120); ALT (SGPT) 20 U/L (10-68); BILIRUBIN - TOTAL 0.45 mg/dL (0.2-1.3); CKMB 2.2 U/L (0.0-3.6); CREATINE KINASE 55 UL (21-232); PRO BNP 1523 pg/mL (0-450); PROTEIN - SERUM 6.9 g/dL (6.4-8.2); TROPONIN-I < 0.017 ng/mL (0.000-0.060)
[2020-05-10 12:45] LABS: UDS - AMPHET NEGATIVE QUAL (NEGATIVE); UDS - BARB NEGATIVE QUAL (NEGATIVE); UDS - BENZO POSITIVE QUAL (NEGATIVE); UDS - COCAINE NEGATIVE QUAL (NEGATIVE); UDS - OPIATE NEGATIVE QUAL (NEGATIVE); UDS - PCP NEGATIVE QUAL (NEGATIVE); UDS - THC NEGATIVE QUAL (NEGATIVE)
[2020-05-10 12:55] LABS: THYROID STIMULATING HORMONE 1.2 uIU/mL (0.36-3.74)
[2020-05-10] MEDS ORDERED: FUROSEMIDE20 MG PO (14:26)
== END 2020-05-10 14:53 | disposition home or self-care (01) ==
LOC: D.ER 11:13
PROVIDERS: Emergency Medicine
DX: R06.00 Dyspnea, unspecified (principal); F41.9 Anxiety disorder, unspecified; F32.9 Major depressive disorder, single episode, unspecified; D72.829 Elevated white blood cell count, unspecified; R00.2 Palpitations; R53.1 Weakness; Z86.73 Personal history of transient ischemic attack (TIA), and cerebral infarction without residual deficits; G62.9 Polyneuropathy, unspecified; I10 Essential (primary) hypertension; J44.9 Chronic obstructive pulmonary disease, unspecified; Z72.0 Tobacco use